=== PATIENT | male | born 1935 | race Two or more races ===

== ENCOUNTER 2018-04-26 20:52 | Inpatient (IN) | payer MEDICARE, MEDICAID ==
--- NOTE | 2018-04-26 21:30 | ED Physician Chart ---
ED Chief Complaint/HPI - Patient Information Date Seen:: 04/26/18 Time Seen:: 20:25 Chief Complaint:: abn labs History of Present Illness:: 82 yr [facility] with wbc 25 k and elevated bun pt confused unable to give any reliable hx Allergies:: Allergies Allergy/AdvReac Type Severity Reaction Status Date / Time No Known Allergies Allergy Verified 06/02/16 22:18 Vitals:: Vital Signs - 8 hr 04/26/18 21:07 HR 71 O2 Sat % 100 Historian:: Medical Records ED Review of Systems - Review of Systems Skin: Skin lesions (severe fee discolorations pt unable to give any hx) ED Past Medical History - Past Medical History Past Medical History: Other (schizo bipolar anxietydementia melanoma malignant) Family Medical History - Family Member Mother History Unknown: Yes ED Physical Exam - Physical Examination General/Constitutional: Awake Head: Atraumatic Skin: Nl inspection, No rash, No skin lesions, No ecchymosis, Well hydrated, No lymphadenopathy Neck: No JVD (trach vent dependent) Cardio Vascular: RRR (no wheezing) Other Neuro/Psych comments:: pt with schizo bipolar dementia ED Assessment - Assessment General Assessment: vent dependence elevated wbc r/o sepsis ED Septic Shock - . Is Septic Shock (SBP<90, OR Lactate>4 mmol\L) present?: No - <6hrs of presentation: Vital Signs: Vital Signs - 8 hr 04/26/18 21:07 HR 71 O2 Sat % 100 ED Reassessment (Disposition) - Reassessment Reassessment Condition:: Unchanged - Diagnosis Diagnosis:: r/o sepsis - Patient Disposition Discharge/Transfer:: Acute Care w/in this hosp
[2018-04-26 22:08] LABS: EOSINOPHILE ABSOLUTE 0.2 Th/cmm (0.1-0.4); HEMATOCRIT 33.7 % (41.0-60); HEMOGLOBIN 11.7 gm/dL (12-16); LYMPHOCYTE ABSOLUTE 0.5 Th/cmm (1.5-3.0); MANUAL DIFF REQUIRED? YES; MEAN CELL VOLUME 89.1 fl (80-99); MEAN CORPUSCULAR HGB CONC 34.8 pg (28.0-36.0); MEAN PLATELET VOLUME 10.6 fl; MONOCYTE ABSOLUTE 0.6 Th/cmm (0.3-1.0); NEUTROPHILE ABSOLUTE 13.3 Th/cmm (1.8-8.0); PLATELET COUNT 151 Th/cmm (150-400); RED BLOOD COUNT 3.78 Mil/cmm (3.80-5.80); RED CELL DISTRIBUTION WIDTH 12.2 % (11.5-20.0); WHITE BLOOD COUNT 14.6 Th/cmm (4.8-10.8)
[2018-04-26 22:24] LABS: URINE MICROSCOPIC INDICATED? YES; URINE SOURCE CLEAN C
[2018-04-26 22:27] LABS: ALB/GLOB RATIO 0.9 (1.0-1.8); ALBUMIN 3.4 gm/dL (4.2-5.5); ALKALINE PHOSPHATASE 182 U/L (34-104); BILIRUBIN,TOTAL 1.1 mg/dL (0.3-1.0); BUN - UREA NITROGEN 58 mg/dL (7-25); CALCIUM SERUM 8.9 mg/dL (8.6-10.3); CARBON DIOXIDE 26.5 mEq/L (21.0-31.0); CHLORIDE 92 mEq/L (98-107); CREATININE - SERUM 1.1 mg/dL (0.7-1.3); GLUCOSE 122 mg/dL (70-105); POTASSIUM SERUM 3.5 mEq/L (3.5-5.1); SGOT 37 U/L (13-39); SGPT/ALT 22 U/L (7-52); SODIUM SERUM 128 mEq/L (136-145); TOTAL PROTEIN,SERUM 7.2 gm/dL (6.0-8.3)
[2018-04-26 22:45] LABS: URINE CLARITY CLOUDY (CLEAR); URINE COLOR YELLOW
[2018-04-26 22:47] LABS: URINE BILIRUBIN NEGATIVE (NEGATIVE); URINE GLUCOSE (UA) NEGATIVE (NEGATIVE); URINE KETONE NEGATIVE (NEGATIVE)
[2018-04-26 22:48] LABS: URINE BLOOD LARGE (NEGATIVE); URINE NITRATE POSITIVE (NEGATIVE); URINE PH 7.5 (4.6 - 8.0); URINE PROTEIN 100 mg/dL (NEGATIVE); URINE UROBILINOGEN 0.2 E.U./dL (0.2 - 1.0)
[2018-04-26 22:49] LABS: URINE LEUKOCYTE ESTERASE MODERATE (NEGATIVE)
[2018-04-26] MEDS ORDERED: Piperacillin Sodium/Tazobact 3.375 gm Vial IV ONE (22:53)
[2018-04-26 22:55] LABS: URINE BACTERIA MODERATE /hpf (NONE SEEN); URINE EPITHELIAL CELLS NONE SEEN /lpf (FEW)
[2018-04-26 23:17] LABS: BAND NEUTROPHILE 7 % (0-10); BASOPHIL 0 % (0-3); EOSINOPHIL 1 % (0-5); LYMPHOCYTE 3 % (20-50); MONOCYTE 3 % (2-10); NEUTROPHILS 86 % (40-80); PLATELET ESTIMATE ADEQUATE (NORMAL); PLATELET MORPHOLOGY NORMAL (NORMAL); TOTAL CELLS COUNTED 100
[2018-04-26] MEDS ORDERED: Sodium Chloride 0.9% 1,000 ML IV ONE (23:32)
[2018-04-26] MEDS ORDERED: Polyvinyl Alcohol Ophth Soln 15 mL Bottle EACH EYE PRN (23:54)
[2018-04-26] MEDS ORDERED: guaiFENesin 200 MG/10 ML UDC PO PRN (23:57)
[2018-04-27] MEDS: D5-0.9%NS 1,000 ML IV SCH ×3 (01:30→14:00)
[2018-04-27] MEDS ORDERED: LOPERAMIDE HCL GT PRN (03:15)
[2018-04-27] MEDS: Ferrous Sulfate 300 MG/5 ML UDC GT SCH ×3 (05:19→21:26)
[2018-04-27] MEDS ORDERED: Piperacillin Sodium/Tazobact 3.375 gm Vial IV ONE (05:21)
[2018-04-27] MEDS: Albuterol Nebulizer 2.5mg/3mL HHN SCH ×4 (07:53→18:42)
[2018-04-27] MEDS: Ipratropium Neb 0.5 mg/2.5 mL UD HHN SCH ×4 (07:53→18:42)
[2018-04-27] MEDS: Pantoprazole 40 mg/Packet GT SCH (08:00)
[2018-04-27] MEDS: Albumin 25% 25gm/100mL 50 GM/200 ML BTL IV ONE ×2 (08:10→09:18)
[2018-04-27] MEDS: Levothyroxine 0.025 Mg Tab GT SCH (08:20)
[2018-04-27] MEDS: Chlorhexidine Gluconate 0.12% 15mL Mouthwash MM SCH (08:25)
[2018-04-27] MEDS ORDERED: Albumin 25% 25gm/100mL 25 GM/100 ML BTL IV ONE (08:29)
[2018-04-27] MEDS ORDERED: Non-Formulary Item 1 EA (Cran/Vitc/Mannose/Fos/Bromeln [Uti-Stat Liquid] 30 ML) GT SCH (09:00)
[2018-04-27] MEDS ORDERED: Non-Formulary Item 1 EA (Amino Acids/Protein Hydrolys [Pro-Stat Sugar Free Liquid] 30 ML) GT SCH (09:00)
[2018-04-27] MEDS: Vancomycin HCl 500 MG in Sodium Chloride 0.9% 100 ML IV SCH ×2 (09:02→21:24)
[2018-04-27 09:04] LABS: ALB/GLOB RATIO 0.9 (1.0-1.8); ALBUMIN 2.9 gm/dL (4.2-5.5); ALKALINE PHOSPHATASE 116 U/L (34-104); ANION GAP 11.5 (7.0-16.0); BILIRUBIN,TOTAL 1.1 mg/dL (0.3-1.0); BUN - UREA NITROGEN 47 mg/dL (7-25); CALCIUM SERUM 8.4 mg/dL (8.6-10.3); CARBON DIOXIDE 24.4 mEq/L (21.0-31.0); CHLORIDE 99 mEq/L (98-107); GLUCOSE 142 mg/dL (70-105); SGOT 33 U/L (13-39); SGPT/ALT 21 U/L (7-52); SODIUM SERUM 132 mEq/L (136-145); TOTAL PROTEIN,SERUM 6.3 gm/dL (6.0-8.3)
[2018-04-27 09:07] LABS: % BASOPHILS 0.4 % (0.0-2.0); % EOSINOPHILS 0.5 % (0.0-5.0); % LYMPHOCYTES 5.8 % (20.0-50.0); % NEUTROPHILS 89.3 % (40.0-80.0); HEMOGLOBIN 9.8 gm/dL (12-16); LYMPHOCYTE ABSOLUTE 0.4 Th/cmm (1.5-3.0); MEAN CELL VOLUME 88.5 fl (80-99); MEAN CORPUSCULAR HEMOGLOBIN 30.7 pg (27.0-31.0); MEAN CORPUSCULAR HGB CONC 34.7 pg (28.0-36.0); MEAN PLATELET VOLUME 11.3 fl; MONOCYTE ABSOLUTE 0.3 Th/cmm (0.3-1.0); PLATELET COUNT 131 Th/cmm (150-400); RED BLOOD COUNT 3.19 Mil/cmm (3.80-5.80); RED CELL DISTRIBUTION WIDTH 12.2 % (11.5-20.0)
[2018-04-27 09:09] LABS: POTASSIUM SERUM 2.9 mEq/L (3.5-5.1)
[2018-04-27 09:10] LABS: HEMATOCRIT 28.2 % (41.0-60); WHITE BLOOD COUNT 6.7 Th/cmm (4.8-10.8)
--- NOTE | 2018-04-27 09:12 | Diagnostic Imaging Report ---
Portable chest x-ray HISTORY: Shortness of breath The overall heart size is difficult to assess with portable technique and a poor inspiration. No acute focal pulmonary processes. Tracheostomy noted. IMPRESSION: 1. No acute focal pulmonary processes
[2018-04-27] MEDS: Multivitamin w/ Minerals Tab GT SCH (09:15)
[2018-04-27] MEDS: KCL 20mEq/100mL Premix 40 MEQ/200 ML PIGGYBACK IV SCH ×2 (09:57→12:12)
[2018-04-27] MEDS: INSULIN ASPART SLIDING SCALE 100 UNITS/ML UNIT SUBQ SCH ×2 (12:12→17:34)
--- NOTE | 2018-04-27 14:19 | Internal Medicine Prog Note ---
Internal Medicine Subjective - Subjective Service Date: 04/27/18 ([facility] [id number]) Internal Medicine Objective - Results Result Diagrams: 04/27/18 08:37 04/27/18 08:37 Recent Labs: Laboratory Last Values WBC 6.7 Th/cmm (4.8-10.8) D 04/27/18 08:37 RBC 3.19 Mil/cmm (3.80-5.80) L 04/27/18 08:37 Hgb 9.8 gm/dL (12-16) L 04/27/18 08:37 Hct 28.2 % (41.0-60) L D 04/27/18 08:37 MCV 88.5 fl (80-99) 04/27/18 08:37 MCH 30.7 pg (27.0-31.0) 04/27/18 08:37 MCHC Differential 34.7 pg (28.0-36.0) 04/27/18 08:37 RDW 12.2 % (11.5-20.0) 04/27/18 08:37 Plt Count 131 Th/cmm (150-400) L 04/27/18 08:37 MPV 11.3 fl 04/27/18 08:37 Neutrophils % 89.3 % (40.0-80.0) H 04/27/18 08:37 Band Neutrophils % 7 % (0-10) 04/26/18 22:03 Lymphocytes % 5.8 % (20.0-50.0) L 04/27/18 08:37 Monocytes % 4.0 % (2.0-10.0) 04/27/18 08:37 Eosinophils % 0.5 % (0.0-5.0) 04/27/18 08:37 Basophils % 0.4 % (0.0-2.0) 04/27/18 08:37 Neutrophils (Manual) 86 % (40-80) H 04/26/18 22:03 Lymphocytes 3 % (20-50) L 04/26/18 22:03 Monocytes 3 % (2-10) 04/26/18 22:03 Eosinophils 1 % (0-5) 04/26/18 22:03 Basophils 0 % (0-3) 04/26/18 22:03 Platelet Estimate ADEQUATE (NORMAL) 04/26/18 22:03 Platelet Morphology NORMAL (NORMAL) 04/26/18 22:03 RBC Morph Micro Appear NORMAL (NORMAL) 04/26/18 22:03 Sodium 132 mEq/L (136-145) L 04/27/18 08:37 Potassium 2.9 mEq/L (3.5-5.1) L* 04/27/18 08:37 Chloride 99 mEq/L (98-107) 04/27/18 08:37 Carbon Dioxide 24.4 mEq/L (21.0-31.0) 04/27/18 08:37 Anion Gap 11.5 (7.0-16.0) 04/27/18 08:37 BUN 47 mg/dL (7-25) H 04/27/18 08:37 Creatinine 1.0 mg/dL (0.7-1.3) 04/27/18 08:37 Est GFR ( Amer) TNP 04/27/18 08:37 Est GFR (Non-Af Amer) TNP 04/27/18 08:37 BUN/Creatinine Ratio 47.0 04/27/18 08:37 Glucose 142 mg/dL (70-105) H 04/27/18 08:37 Calcium 8.4 mg/dL (8.6-10.3) L 04/27/18 08:37 Total Bilirubin 1.1 mg/dL (0.3-1.0) H 04/27/18 08:37 AST 33 U/L (13-39) 04/27/18 08:37 ALT 21 U/L (7-52) 04/27/18 08:37 Alkaline Phosphatase 116 U/L (34-104) H 04/27/18 08:37 Total Protein 6.3 gm/dL (6.0-8.3) 04/27/18 08:37 Albumin 2.9 gm/dL (4.2-5.5) L 04/27/18 08:37 Globulin 3.4 gm/dL 04/27/18 08:37 Albumin/Globulin Ratio 0.9 (1.0-1.8) L 04/27/18 08:37 Urine Source CLEAN C 04/26/18 22:15 Urine Color YELLOW 04/26/18 22:15 Urine Clarity CLOUDY (CLEAR) 04/26/18 22:15 Urine pH 7.5 (4.6 - 8.0) 06/15/18 22:15 Ur Specific [place] 1.005 (1.005-1.030) 04/26/18 22:15 Urine Protein 100 mg/dL (NEGATIVE) H 04/26/18 22:15 Urine Glucose (UA) NEGATIVE mg/dL (NEGATIVE) 04/26/18 22:15 Urine Ketones NEGATIVE mg/dL (NEGATIVE) 04/26/18 22:15 Urine Blood LARGE (NEGATIVE) H 04/26/18 22:15 Urine Nitrate POSITIVE (NEGATIVE) H 04/26/18 22:15 Urine Bilirubin NEGATIVE (NEGATIVE) 04/26/18 22:15 Urine Urobilinogen 0.2 E.U./dL (0.2 - 1.0) 04/26/18 22:15 Ur Leukocyte Esterase MODERATE (NEGATIVE) H 04/26/18 22:15 Urine RBC 10-25 /hpf (0-5) H 04/26/18 22:15 Urine WBC 10-25 /hpf (0-5) H 04/26/18 22:15 Ur Epithelial Cells NONE SEEN /lpf (FEW) 04/26/18 22:15 Urine Bacteria MODERATE /hpf (NONE SEEN) H 04/26/18 22:15 - Physical Exam Vitals and I&O: Vital Signs Temp 98.9 F 04/27/18 14:00 Pulse 60 04/27/18 14:00 Resp 17 04/27/18 14:00 BP 118/34 04/27/18 14:00 Pulse Ox 100 04/27/18 14:00 Intake & Output 04/26/18 04/27/18 04/27/18 18:59 06:59 18:59 Intake Total 1460 1254.500 Output Total 650 Balance 810 1254.500 Weight (lbs) 154 lb Intake: Intake, IV Amount 1400 1254.500 Albumin 25% 25gm/100mL 50 56.667 gm In 200 ml @ 50 mls/hr IV X1 ONE Rx#:[id number] D5-0.9%Ns 1,000 ml @ 80 885.333 mls/hr IV [id number] [facility] Rx #:[id number] KCL 20mEq/100mL Premix 40 112.5 meq In 200 ml @ 50 mls/ hr IV Q2H [facility] Rx#: [id number] Piperacillin Sodium/ 100 100 Tazobact 3.375 gm In Sodium Chloride 0.9% 100 ml @ 100 mls/hr IV Q6HR [facility] Rx#:[id number] Piperacillin Sodium/ 50 Tazobact 3.375 gm In Sodium Chloride 0.9% 50 ml @ 100 mls/hr IV X1 [facility] Rx#:[id number] Sodium Chloride 0.9% 1, 1000 000 ml @ 1000 mls/hr IV . Q1H [facility] Rx#:[id number] Vancomycin HCl 1 gm In 250 Sodium Chloride 0.9% 250 ml @ 166.667 mls/hr IV 0300 [facility] Rx#:[id number] Vancomycin HCl 500 mg In 100 Sodium Chloride 0.9% 100 ml @ 100 mls/hr IV Q12HR [facility] Rx#:[id number] Oral 0 Other 60 Output: Urine 650 Other: # Bowel Movements 0 Weight Source Bedscale Active Medications: Current Medications Acetaminophen (Tylenol) 650 mg GT Q6HR PRN PRN Reason: Pain or Fever >101 Stop: 06/25/18 23:53 Last Admin: 04/27/18 09:39 Dose: 650 mg Acetaminophen/Hydrocodone Bitart ([place] 5mg/325mg) 1 tab GT Q8H PRN PRN Reason: Pain (Severe) Stop: 06/25/18 23:53 Albuterol Sulfate (Albuterol 2.5mg/3ml Neb Ud) 2.5 mg HHN QIDRT [facility] Stop: 06/26/18 06:59 Last Admin: 04/27/18 11:37 Dose: 2.5 mg Alprazolam (Xanax) 0.5 mg GT Q8HR PRN; Protocol PRN Reason: Anxiety Stop: 06/25/18 23:53 Last Admin: 04/27/18 09:15 Dose: 0.5 mg Artificial Tears (Artificial Tears Ophth Soln) 1 drop EACH EYE TID PRN PRN Reason: Dry Eye Stop: 06/25/18 23:53 Ascorbic Acid (Vitamin C) 500 mg GT DAILY [facility] Stop: 06/26/18 08:59 Last Admin: 04/27/18 09:16 Dose: 500 mg Chlorhexidine Gluconate (Peridex) 15 ml MM 0800,2000 [facility] Stop: 06/26/18 07:59 Last Admin: 04/27/18 08:25 Dose: 15 ml Epoetin [place] (Epogen) 4,000 units SUBQ MWF [facility] Stop: 06/28/18 08:59 Ferrous Sulfate (Iron) 330 mg GT Q8HR [facility] Stop: 06/26/18 04:59 Last Admin: 04/27/18 12:33 Dose: 330 mg Fluocinonide (Lidex 0.05%) 1 appl TP BID [facility] Stop: 06/26/18 08:59 Last Admin: 04/27/18 09:44 Dose: 1 appl Guaifenesin (Robitussin) 200 mg PO Q4HR PRN PRN Reason: Cough or Congestion Stop: 06/25/18 23:56 Piperacillin Sod/Tazobactam (Sod 3.375 gm/ Sodium Chloride) 100 mls @ 100 mls/ hr IV Q6HR [facility] Stop: 06/26/18 05:59 Last Infusion: 04/27/18 13:15 Dose: Infused Vancomycin HCl 500 mg/ Sodium (Chloride) 100 mls @ 100 mls/hr IV Q12HR [facility] Stop: 06/26/18 08:59 Last Infusion: 04/27/18 10:05 Dose: Infused Norepinephrine Bitartrate 4 mg (/ Dextrose) 254 mls @ 0 mls/hr IV TITR PRN; Protocol PRN Reason: To Keep SBP Above 90 Stop: 06/26/18 08:13 Last Admin: 04/27/18 08:59 Dose: 4 mcg/min, 15.24 mls/hr Dextrose/Sodium Chloride (D5-0.9%Ns) 1,000 mls @ 100 mls/hr IV .Q10H [facility] Stop: 06/26/18 13:44 Insulin Aspart (Novolog Insulin Sliding Scale) 0 units SUBQ Q6HR [facility]; Protocol Stop: 06/26/18 11:59 Last Admin: 04/27/18 12:12 Dose: 2 units Ipratropium [place] (Atrovent Neb 0.5mg/2.5ml) 0.5 mg HHN QIDRT [facility] Stop: 06/26/18 06:59 Last Admin: 04/27/18 11:37 Dose: 0.5 mg Ketoconazole (Nizoral 2% Cream) 1 appl TP BID [facility] Stop: 06/26/18 08:59 Last Admin: 04/27/18 09:44 Dose: 1 appl Levothyroxine Sodium (Synthroid) 0.025 mg GT QDAC [facility] Stop: 06/26/18 07:29 Last Admin: 04/27/18 08:20 Dose: 0.025 mg Loperamide HCl (Imodium Oral Soln) 2 mg GT Q6HR PRN PRN Reason: Diarrhea Stop: 06/26/18 03:14 Lorazepam (Ativan) 1 mg IV Q4H PRN; Protocol PRN Reason: Seizure Stop: 06/25/18 23:56 Last Admin: 04/27/18 13:22 Dose: 1 mg Midodrine (Proamatine) 5 mg GT TID [facility] Stop: 06/26/18 08:59 Last Admin: 04/27/18 13:23 Dose: 5 mg Miscellaneous (Celecoxib [Celecoxib]) 200 mg GT DAILY [facility] Stop: 06/26/18 08:59 Miscellaneous (Vancomycin Iv Per Pharmacy) 1 ea MC PRN PRN PRN Reason: PROTOCOL Stop: 06/26/18 07:52 Ondansetron HCl (Zofran) 4 mg IV Q8H PRN PRN Reason: Nausea / Vomiting Stop: 06/25/18 23:56 Pantoprazole Sodium (Protonix) 40 mg GT QDAC [facility] Stop: 06/26/18 07:29 Last Admin: 04/27/18 08:00 Dose: 40 mg Paroxetine HCl (Paxil) 10 mg GT DAILY [facility]; Protocol Stop: 06/26/18 08:59 Last Admin: 04/27/18 09:15 Dose: 10 mg Pyridostigmine [place] (Mestinon) 60 mg GT BID [facility] Stop: 06/26/18 08:59 Last Admin: 04/27/18 09:17 Dose: 60 mg - Procedures Procedures: Procedures Procedure Code Date EGD PLACE GASTROSTOMY TUBE 32518 06/02/16 INSERTION OF FEEDING DEVICE INTO STOMACH, ENDO [id number] 06/02/16 RESPIRATORY VENTILATION, GREATER THAN 96 CONSECUTIVE HOURS [id number] 06/02/16 VENT MGMT INPAT INIT DAY 06/02/16 VENT MGMT INPAT SUBQ DAY 06/02/16 Nutritional Asmnt/Malnutr-PDOC - Dietary Evaluation Malnutrition Findings (Please click <Entered> for more info): Nutritional Asmnt/Malnutrition Start: 04/27/18 09: 23 Text: Status: Complete Freq: Protocol: Document 04/27/18 09:24 [facility] (Rec: 04/27/18 09:38 [facility] [id number]) Nutritional Asmnt/Malnutrition Patient General Information Nutritional Screening High Risk Consult Diagnosis Sepsis, UTI Pertinent Medical Hx/Surgical Hx G-tube; trach vent dependent - nonverbal per RN notes Hx: Schizo, bipolar, anxiety, dementia, melanoma (malignant) Subjective Information Consult received for Russell Dhaliwal . Patient from [facility]; confused. Patient seen sleeping in ICU. Current Diet Order/ Nutrition Support TF Diabetisource 50 mL/hr continuous Patient / S.O Can't verbalize diet edu Pertinent Medications vit C, D5, FeSO4, Epo, Novolog , Synthroid, zofran, protonix, Pertinent Labs 04/27: Alb 2.9, K+ 2.9, Glu 142 04/26: Alb 3.4, K+ 3.5, Glu 122 Nutritional Hx/Data Height 5 ft 6 in Height (Calculated Centimeters) 167.6 Current Weight (lbs) 154 lb Weight (Calculated Kilograms) 69.9 Weight (Calculated Grams) 16048.2 [place] Body Weight 142 % [place] Body Weight 108 Body Mass Index (BMI) 24.8 Weight Status Approriate GI Symptoms Last BM none indicated Difficult in: Chewing Swallowing Food Allergies unknown Cultural/Ethnic/[employer] Belief unknown Usual diet at home TF at SNF Skin Integrity/Comment: Russell Dhaliwal, multiple skin abrasions to L hand, L foot; reddened scabs to L thigh, RUE , r foot, buttock Estimated Nutritional Goals BEE in Kcals: Using Current wt Calories/Kcals/Kg [id number] Kcals Calculated 1750 Protein: Using Current wt Protein g/k-1.2 Protein Calculated 70-84 Fluid: ml 1750 - 1890 (1ml/kcal) Nutritional Problem 1. Problem Problem Increased protein needs Etiology impaired skin integrity Signs/Symptoms: russell Dhaliwal, multiple skin abrasions/tears Intervention/Recommendation Comments 1. If medically appropriate, recommend increasing TF rate to Diabetisource 60 mL/hr to provide 1728 Kcals, 86g protein, 1178 mL free water, 100% RDI. Recommend 150 mL free water flushes q 6 hours to provide additional 600 mL fluids for total 1778 mL/day. 2. Recommend adding arginine for wound healing. Expected Outcomes/Goals Expected Outcomes/Goals 1. Pt to meet at least 75% of nutritional needs via nutrition support with minimal residuals 2. Wt stability, improved skin integrity, labs to approach WNL. 3. F/U as high risk in 2-3 days, 04/29-04/30
--- NOTE | 2018-04-27 16:53 | History & Physical ---
ADMIT DATE: 04/27/2018 CHIEF COMPLAINT: White count of 25,000. HISTORY OF PRESENT ILLNESS: This is an 82-year-old male who is well known to me from [facility]. I was called on this patient due to 1-day history of fevers as well as a white count of 25,000. For further management the patient is admitted to the ICU. In the ICU, the patient was noted to be hypotensive. Albumin was given; despite of giving albumin blood pressure remained low systolic pressure in the 70s and the patient started on Levophed. PAST MEDICAL HISTORY: Myasthenia gravis, ventilator dependent respiratory failure, acute on chronic respiratory failure, dementia, malignant melanoma. SURGICAL HISTORY: PEG and tracheostomy. MEDICATIONS: Vitamin C, albuterol sulfate, folic acid, Reglan, multivitamins, Protonix, Paxil, and zinc sulfate. REVIEW OF SYSTEMS: Unable to obtain due to patient's mental status. SOCIAL HISTORY: The patient is a shelter resident, requiring 24-hour nursing care. PHYSICAL EXAMINATION: GENERAL: Elderly male, awake on ventilator, in no apparent distress. VITAL SIGNS: Temperature 99.9, heart rate 60, blood pressure 118/34, respirations 17. HEENT: Head normocephalic, atraumatic. NECK: Supple. No mass. LUNGS: Rhonchi bilaterally. HEART: . ABDOMEN: Soft, nontender. LABORATORY RESULTS: WBC 6.7, H and H 9.8/28.2, platelet of 131. Sodium 132, potassium 2.9, chloride 99, BUN 47, creatinine 1.0, albumin of 2.9. The patient had a urinalysis done, positive for UTI. DIAGNOSTICS: The patient had a chest x-ray done and impression is no acute focal pulmonary processes. ASSESSMENT: Sepsis, acute UTI, hypotension, hypokalemia, acute renal insufficiency, rule out dehydration, VDRL, acute on chronic respiratory failure, mild protein calorie malnutrition. PLAN: Admit the patient to the ICU unit. Continue with Levophed and titrate as per protocol. We will get followup labs for tomorrow morning. We will monitor the patient's electrolytes level. Continue ventilator support, send urine for urine culture. We will continue to monitor this patient. JOB# [id number]
--- NOTE | 2018-04-27 23:18 | Consultation ---
DATE OF CONSULTATION: UROLOGY CONSULTATION REASON FOR CONSULTATION: Seen for possible urinary retention. HISTORY OF PRESENT ILLNESS: The patient is an 82-year-old in the ICU, came in for hypotension, abnormal labs, confusion, and altered level of consciousness. He was admitted and is being treated for sepsis of unknown origin. The patient had a chronic Daly catheter, which was removed and the nurses were unable to reinsert it. Since then, he has been incontinent of clear urine. MEDICAL HISTORY: Consists of schizophrenia and bipolar disorder with anxiety and dementia. History of melanoma. History of respiratory failure with ventilator dependency and tracheostomy. History of myasthenia gravis. PAST SURGICAL HISTORY: 1. G-tube placement. 2. Tracheostomy. HOME MEDICATIONS: Inhalers, vitamins, Protonix, Paxil, and zinc. SOCIAL HISTORY: He is a intermediate resident. Requires very intensive nursing care. More details are unavailable. REVIEW OF SYSTEMS: The patient is on 2 mcg of Levophed here. Besides that, he has not had any headache or seizures reported. He has not had chest pain, coughing or shortness of breath. His ventilator settings are stable. He has not vomited and does not have diarrhea. He is incontinent of urine and is not distended. Does not have decubiti so far. PHYSICAL EXAMINATION: GENERAL: On exam, he is in the ICU, currently stable. VITAL SIGNS: Temperature 97.6, heart rate 71, blood pressure 92/61 on vasopressors, no temperature recorded in the hospital. HEAD AND NECK: Normocephalic. Trachea central with tracheostomy. No jaundice. Thyroid and lymph nodes not palpable. Carotid bruit absent. CHEST: Symmetrical. LUNGS: With scattered rhonchi, occasional rales at the bases. HEART: Sounds normal sinus rhythm, no murmur. ABDOMEN: Soft with G-tube in place. No organomegaly, mass, or hernia. Bladder not distended or palpable. Scrotum unremarkable. No scrotal masses. GENITOURINARY: Penis uncircumcised. Active incontinence of urine was noted. EXTREMITIES: No edema or lymphadenopathy. NEUROLOGIC: Nonfocal. Moves all 4 limbs. LABORATORY DATA: White count was 14.6 yesterday and now 6.7. The patient is on vancomycin and Zosyn. Hemoglobin 9.8 down from 11.7, platelets 131, mild left shift in the white count. Sodium was 128, now 132; potassium is now 2.9, yesterday at 3.5; BUN 47, creatinine 1.0, glucose 169 and 151, calcium 8.4, bilirubin 1.1. Liver enzymes normal. Alkaline phosphatase 116, mildly elevated. Albumin 2.9. Urinalysis shows large amount of blood and moderate amount of leukocyte esterase with red cells and white cells obtained from the Daly and somewhat expected. Blood cultures are negative so far. Chest x-ray shows no acute changes. IMPRESSION: 1. Chronic Daly catheter, status now without it, and urinating adequate amounts clinically, but needs to be verified and retention needs to be ruled out. I will order pre and post-void or a random bladder ultrasound since we do not have a bladder scanner and see if he has significant retention. If so, then we will attempt a Daly catheter at the bedside and hopefully does not require cystoscopy as a stricture is certainly a possibility that may not be treatable at the bedside. If he does not have retention, I would currently not attempt a Daly and wait till he is hemodynamically stable and then attempted at the bedside. 2. History of respiratory failure, ventilator dependent. 3. History of G-tube dependency. 4. History of myasthenia gravis. 5. History of malignant melanoma. 6. History of dementia. JOB# [id number]
[2018-04-28] MEDS: Chlorhexidine Gluconate 0.12% 15mL Mouthwash MM SCH ×3 (00:54→21:00)
[2018-04-28] MEDS: INSULIN ASPART SLIDING SCALE 100 UNITS/ML UNIT SUBQ SCH ×4 (01:19→18:43)
[2018-04-28 04:57] LABS: % BASOPHILS 0.6 % (0.0-2.0); % EOSINOPHILS 3.3 % (0.0-5.0); % LYMPHOCYTES 10.6 % (20.0-50.0); % MONOCYTES 8.8 % (2.0-10.0); % NEUTROPHILS 76.7 % (40.0-80.0); EOSINOPHILE ABSOLUTE 0.2 Th/cmm (0.1-0.4); HEMATOCRIT 29.5 % (41.0-60); HEMOGLOBIN 10.2 gm/dL (12-16); LYMPHOCYTE ABSOLUTE 0.6 Th/cmm (1.5-3.0); MEAN CELL VOLUME 89.5 fl (80-99); MEAN CORPUSCULAR HGB CONC 34.6 pg (28.0-36.0); MEAN PLATELET VOLUME 10.2 fl; MONOCYTE ABSOLUTE 0.5 Th/cmm (0.3-1.0); NEUTROPHILE ABSOLUTE 4.3 Th/cmm (1.8-8.0); PLATELET COUNT 117 Th/cmm (150-400); RED BLOOD COUNT 3.29 Mil/cmm (3.80-5.80); RED CELL DISTRIBUTION WIDTH 12.1 % (11.5-20.0); WHITE BLOOD COUNT 5.6 Th/cmm (4.8-10.8)
[2018-04-28 05:10] LABS: ANION GAP 10.4 (7.0-16.0); BUN - UREA NITROGEN 27 mg/dL (7-25); CALCIUM SERUM 8.6 mg/dL (8.6-10.3); CARBON DIOXIDE 24.6 mEq/L (21.0-31.0); CHLORIDE 106 mEq/L (98-107); CREATININE - SERUM 0.8 mg/dL (0.7-1.3); GLUCOSE 164 mg/dL (70-105); SODIUM SERUM 138 mEq/L (136-145)
[2018-04-28] MEDS: Levothyroxine 0.025 Mg Tab GT SCH (07:30)
[2018-04-28] MEDS: Albuterol Nebulizer 2.5mg/3mL HHN SCH ×4 (07:49→18:48)
[2018-04-28] MEDS: Ipratropium Neb 0.5 mg/2.5 mL UD HHN SCH ×4 (07:49→18:48)
--- NOTE | 2018-04-28 08:03 | Consultation ---
DATE OF CONSULTATION: 04/27/2018 PATIENT OF: Dr. Bowden. Thank you very much Dr. Bowden for this consultation. HISTORY OF PRESENT ILLNESS: The patient is an 82-year-old male with history of myasthenia gravis, chronic respiratory failure, presented from the retirement with hypotension and fever, was found to have UTI, sepsis. He was started on IV fluids, antibiotics and pressors. The patient is on Levophed. Blood pressure is controlled, but lethargic. PAST MEDICAL HISTORY: As above. SOCIAL HISTORY: retirement resident. No history of smoking. PHYSICAL EXAMINATION: VITAL SIGNS: Temperature 99.3, pulse 70, respiration is 19, blood pressure is 110/40, saturation is 99%. HEENT: Atraumatic, normocephalic. Pupils react to light and accommodation. Ears, nose and throat normal. NECK: Supple. No JVD. CHEST: There is fair entry bilaterally. No wheezing, crackles. HEART: Regular rate and rhythm. No murmurs. ABDOMEN: Soft. EXTREMITIES: No edema. LABORATORY DATA: WBC 6.7, hemoglobin 9.8, hematocrit 28.2, platelets 131. Sodium 132, potassium 2.9, BUN is 47, creatinine 1.0. Chest x-ray clear. IMPRESSION: This is an 82-year-old male with chronic respiratory failure, on the ventilator dependent with a urinary tract infection, sepsis, hypotension and dehydration. PLAN: 1. Ventilator support. 2. Antibiotics. 3. Thacker culture. 4. Nebulizer dependent. 5. IV fluids. Hope to wean the pressors soon. I will follow the patient with you. Thank you very much for this consultation. JOB# [id number]
[2018-04-28] MEDS: D5-0.9%NS 1,000 ML IV SCH ×3 (09:12→23:40)
[2018-04-28] MEDS: Ferrous Sulfate 300 MG/5 ML UDC GT SCH ×4 (09:26→21:36)
[2018-04-28] MEDS: Multivitamin w/ Minerals Tab GT SCH (09:42)
[2018-04-28] MEDS: Pantoprazole 40 mg/Packet GT SCH (09:55)
[2018-04-28] MEDS: Vancomycin HCl 500 MG in Sodium Chloride 0.9% 100 ML IV SCH ×2 (10:00→21:37)
[2018-04-28] MEDS: KCL 20mEq/100mL Premix 20 MEQ/100 ML PIGGYBACK IV SCH ×2 (12:36→14:04)
--- NOTE | 2018-04-28 16:29 | Internal Medicine Prog Note ---
Internal Medicine Subjective - Subjective Service Date: 04/28/18 (off of levophed) Patient seen and examined:: with staff Patient is:: awake Per staff patient has:: tolerating meds Internal Medicine Objective - Results Result Diagrams: 04/28/18 04:30 04/28/18 04:30 Recent Labs: Laboratory Last Values WBC 5.6 Th/cmm (4.8-10.8) 04/28/18 04:30 RBC 3.29 Mil/cmm (3.80-5.80) L 04/28/18 04:30 Hgb 10.2 gm/dL (12-16) L 04/28/18 04:30 Hct 29.5 % (41.0-60) L 04/28/18 04:30 MCV 89.5 fl (80-99) 04/28/18 04:30 MCH 31.0 pg (27.0-31.0) 04/28/18 04:30 MCHC Differential 34.6 pg (28.0-36.0) 04/28/18 04:30 RDW 12.1 % (11.5-20.0) 04/28/18 04:30 Plt Count 117 Th/cmm (150-400) L 04/28/18 04:30 MPV 10.2 fl 04/28/18 04:30 Neutrophils % 76.7 % (40.0-80.0) 04/28/18 04:30 Band Neutrophils % 7 % (0-10) 04/26/18 22:03 Lymphocytes % 10.6 % (20.0-50.0) L 04/28/18 04:30 Monocytes % 8.8 % (2.0-10.0) 04/28/18 04:30 Eosinophils % 3.3 % (0.0-5.0) 04/28/18 04:30 Basophils % 0.6 % (0.0-2.0) 04/28/18 04:30 Neutrophils (Manual) 86 % (40-80) H 04/26/18 22:03 Lymphocytes 3 % (20-50) L 04/26/18 22:03 Monocytes 3 % (2-10) 04/26/18 22:03 Eosinophils 1 % (0-5) 04/26/18 22:03 Basophils 0 % (0-3) 04/26/18 22:03 Platelet Estimate ADEQUATE (NORMAL) 04/26/18 22:03 Platelet Morphology NORMAL (NORMAL) 04/26/18 22:03 RBC Morph Micro Appear NORMAL (NORMAL) 04/26/18 22:03 Sodium 138 mEq/L (136-145) 04/28/18 04:30 Potassium 3.0 mEq/L (3.5-5.1) L 04/28/18 04:30 Chloride 106 mEq/L (98-107) 04/28/18 04:30 Carbon Dioxide 24.6 mEq/L (21.0-31.0) 04/28/18 04:30 Anion Gap 10.4 (7.0-16.0) 04/28/18 04:30 BUN 27 mg/dL (7-25) H 04/28/18 04:30 Creatinine 0.8 mg/dL (0.7-1.3) 04/28/18 04:30 Est GFR ( Amer) TNP 04/28/18 04:30 Est GFR (Non-Af Amer) TNP 04/28/18 04:30 BUN/Creatinine Ratio 33.8 04/28/18 04:30 Glucose 164 mg/dL (70-105) H 04/28/18 04:30 POC Glucose 167 MG/DL (70 - 105) H 04/28/18 07:11 Calcium 8.6 mg/dL (8.6-10.3) 04/28/18 04:30 Total Bilirubin 1.1 mg/dL (0.3-1.0) H 04/27/18 08:37 AST 33 U/L (13-39) 04/27/18 08:37 ALT 21 U/L (7-52) 04/27/18 08:37 Alkaline Phosphatase 116 U/L (34-104) H 04/27/18 08:37 Total Protein 6.3 gm/dL (6.0-8.3) 04/27/18 08:37 Albumin 2.9 gm/dL (4.2-5.5) L 04/27/18 08:37 Globulin 3.4 gm/dL 04/27/18 08:37 Albumin/Globulin Ratio 0.9 (1.0-1.8) L 04/27/18 08:37 Urine Source CLEAN C 04/26/18 22:15 Urine Color YELLOW 04/26/18 22:15 Urine Clarity CLOUDY (CLEAR) 04/26/18 22:15 Urine pH 7.5 (4.6 - 8.0) 04/26/18 22:15 Ur Specific Many 1.005 (1.005-1.030) 04/26/18 22:15 Urine Protein 100 mg/dL (NEGATIVE) H 04/26/18 22:15 Urine Glucose (UA) NEGATIVE mg/dL (NEGATIVE) 04/26/18 22:15 Urine Ketones NEGATIVE mg/dL (NEGATIVE) 04/26/18 22:15 Urine Blood LARGE (NEGATIVE) H 04/26/18 22:15 Urine Nitrate POSITIVE (NEGATIVE) H 04/26/18 22:15 Urine Bilirubin NEGATIVE (NEGATIVE) 04/26/18 22:15 Urine Urobilinogen 0.2 E.U./dL (0.2 - 1.0) 04/26/18 22:15 Ur Leukocyte Esterase MODERATE (NEGATIVE) H 04/26/18 22:15 Urine RBC 10-25 /hpf (0-5) H 04/26/18 22:15 Urine WBC 10-25 /hpf (0-5) H 04/26/18 22:15 Ur Epithelial Cells NONE SEEN /lpf (FEW) 04/26/18 22:15 Urine Bacteria MODERATE /hpf (NONE SEEN) H 04/26/18 22:15 - Physical Exam Vitals and I&O: Vital Signs Temp 98.6 F 04/28/18 12:00 Pulse 59 04/28/18 16:00 Resp 12 04/28/18 14:00 BP 111/51 04/28/18 16:00 Pulse Ox 100 04/28/18 15:52 Intake & Output 04/27/18 04/28/18 04/28/18 18:59 06:59 18:59 Intake Total 2198.104 1340 1681.824 Output Total 0 Balance 2198.104 1340 1681.824 Weight (lbs) 155 lb 3 oz 155 lb 3 oz 155 lb 3 oz Intake: Intake, IV Amount 2729.002 1629 1201.824 Albumin 25% 25gm/100mL 50 56.667 gm In 200 ml @ 50 mls/hr IV X1 ONE Rx#:[id number] D5-0.9%Ns 1,000 ml @ 100 1000 710.000 mls/hr IV .Q10H [facility] Rx#: [id number] D5-0.9%Ns 1,000 ml @ 80 885.333 mls/hr IV .[id number] [facility] Rx #:[id number] KCL 20mEq/100mL Premix 20 73.333 meq In 100 ml @ 50 mls/ hr IV Q2H [facility] Rx#: [id number] KCL 20mEq/100mL Premix 40 112.5 200 meq In 200 ml @ 50 mls/ hr IV Q2H [facility] Rx#: [id number] Norepinephrine 4 mg In 133.604 118.491 Dextrose 5% 250 ml @ Per Protocol IV TITR PRN Rx#: [id number] Piperacillin Sodium/ 200 100 100 Tazobact 3.375 gm In Sodium Chloride 0.9% 100 ml @ 100 mls/hr IV Q6HR [facility] Rx#:[id number] Vancomycin HCl 500 mg In 100 100 Sodium Chloride 0.9% 100 ml @ 100 mls/hr IV Q12HR [facility] Rx#:[id number] Tube Feeding 310 80 480 Other 400 60 Output: Stool 0 Other: # Voids 6 4 6 # Bowel Movements 0 0 Weight Source Bedscale Bedscale Bedscale Active Medications: Current Medications Acetaminophen (Tylenol) 650 mg GT Q6HR PRN PRN Reason: Pain or Fever >101 Stop: 06/25/18 23:53 Last Admin: 04/27/18 09:39 Dose: 650 mg Acetaminophen/Hydrocodone Bitart ([place] 5mg/325mg) 1 tab GT Q8H PRN PRN Reason: Pain (Severe) Stop: 06/25/18 23:53 Albuterol Sulfate (Albuterol 2.5mg/3ml Neb Ud) 2.5 mg HHN QIDRT [facility] Stop: 06/26/18 06:59 Last Admin: 04/28/18 15:48 Dose: 2.5 mg Alprazolam (Xanax) 0.5 mg GT Q8HR PRN; Protocol PRN Reason: Anxiety Stop: 06/25/18 23:53 Last Admin: 04/27/18 09:15 Dose: 0.5 mg Artificial Tears (Artificial Tears Ophth Soln) 1 drop EACH EYE TID PRN PRN Reason: Dry Eye Stop: 06/25/18 23:53 Ascorbic Acid (Vitamin C) 500 mg GT DAILY [facility] Stop: 06/26/18 08:59 Last Admin: 04/28/18 09:42 Dose: 500 mg Celecoxib (Celebrex) 200 mg GT DAILY [facility] Stop: 06/27/18 08:59 Last Admin: 04/28/18 09:43 Dose: 200 mg Chlorhexidine Gluconate (Peridex) 15 ml MM 0800,2000 [facility] Stop: 06/26/18 07:59 Last Admin: 04/28/18 09:44 Dose: 15 ml Epoetin [place]amy (Epogen) 4,000 units SUBQ MWF [facility] Stop: 06/28/18 08:59 Ferrous Sulfate (Iron) 330 mg GT Q8HR [facility] Stop: 06/26/18 04:59 Last Admin: 04/28/18 14:11 Dose: 300 mg Fluocinonide (Lidex 0.05%) 1 appl TP BID [facility] Stop: 06/26/18 08:59 Last Admin: 04/28/18 12:19 Dose: 1 appl Guaifenesin (Robitussin) 200 mg PO Q4HR PRN PRN Reason: Cough or Congestion Stop: 06/25/18 23:56 Piperacillin Sod/Tazobactam (Sod 3.375 gm/ Sodium Chloride) 100 mls @ 100 mls/ hr IV Q6HR [facility] Stop: 06/26/18 05:59 Last Admin: 04/28/18 11:55 Dose: 100 mls/hr Vancomycin HCl 500 mg/ Sodium (Chloride) 100 mls @ 100 mls/hr IV Q12HR [facility] Stop: 06/26/18 08:59 Last Admin: 04/28/18 10:00 Dose: 100 mls/hr Norepinephrine Bitartrate 4 mg (/ Dextrose) 254 mls @ 0 mls/hr IV TITR PRN; Protocol PRN Reason: To Keep SBP Above 90 Stop: 06/26/18 08:13 Last Admin: 04/28/18 09:18 Dose: 2 mcg/min, 7.62 mls/hr Dextrose/Sodium Chloride (D5-0.9%Ns) 1,000 mls @ 100 mls/hr IV .Q10H [facility] Stop: 06/26/18 13:44 Last Infusion: 04/28/18 16:18 Dose: 100 mls/hr Insulin Aspart (Novolog Insulin Sliding Scale) 0 units SUBQ Q6HR [facility]; Protocol Stop: 06/26/18 11:59 Last Admin: 04/28/18 12:33 Dose: Not Given Ipratropium [place] (Atrovent Neb 0.5mg/2.5ml) 0.5 mg HHN QIDRT [facility] Stop: 06/26/18 06:59 Last Admin: 04/28/18 15:48 Dose: 0.5 mg Ketoconazole (Nizoral 2% Cream) 1 appl TP BID [facility] Stop: 06/26/18 08:59 Last Admin: 04/28/18 12:20 Dose: 1 appl Levothyroxine Sodium (Synthroid) 0.025 mg GT QDAC [facility] Stop: 06/26/18 07:29 Last Admin: 04/28/18 07:30 Dose: 0.025 mg Loperamide HCl (Imodium Oral Soln) 2 mg GT Q6HR PRN PRN Reason: Diarrhea Stop: 06/26/18 03:14 Lorazepam (Ativan) 1 mg IV Q4H PRN; Protocol PRN Reason: Seizure Stop: 06/25/18 23:56 Last Admin: 04/27/18 13:22 Dose: 1 mg Midodrine (Proamatine) 5 mg GT TID [facility] Stop: 06/26/18 08:59 Last Admin: 04/28/18 14:14 Dose: 5 mg Miscellaneous (Vancomycin Iv Per Pharmacy) 1 ea [facility] PRN PRN PRN Reason: PROTOCOL Stop: 06/26/18 07:52 Ondansetron HCl (Zofran) 4 mg IV Q8H PRN PRN Reason: Nausea / Vomiting Stop: 06/25/18 23:56 Pantoprazole Sodium (Protonix) 40 mg GT QDAC [facility] Stop: 06/26/18 07:29 Last Admin: 04/28/18 09:55 Dose: 40 mg Paroxetine HCl (Paxil) 10 mg GT DAILY [facility]; Protocol Stop: 06/26/18 08:59 Last Admin: 04/28/18 09:43 Dose: 10 mg Pyridostigmine [place] (Mestinon) 60 mg GT BID [facility] Stop: 06/26/18 08:59 Last Admin: 04/28/18 09:42 Dose: 60 mg General: weak, alert HEENT: NC/AT, PERRLA Neck: Supple, + trach Lungs: ronchi Cardiovascular: without murmur Abdomen: soft, non-tender, non-distended, positive bowel sound Neurological: alert - Procedures Procedures: Procedures Procedure Code Date EGD PLACE GASTROSTOMY TUBE 55789 06/02/16 INSERTION OF FEEDING DEVICE INTO STOMACH, ENDO [id number] 06/02/16 RESPIRATORY VENTILATION, GREATER THAN 96 CONSECUTIVE HOURS [id number] 06/02/16 VENT MGMT INPAT INIT DAY 06/02/16 VENT MGMT INPAT SUBQ DAY 06/02/16 Internal Medicine Assmt/Plan - Assessment Assessment: sepsis acute uti hypotension-resolved hypokalemia-improving acute renal insufficiency- r/o dehydration vdrf acute on chronic respiratory failure mild protein calorie malnutrition - Plan Plan: continue ivabx vent support ivf for hydration monitor bp continue current plan of care Nutritional Asmnt/Malnutr-PDOC - Dietary Evaluation Malnutrition Findings (Please click <Entered> for more info): Nutritional Asmnt/Malnutrition Start: 04/27/18 09: 23 Text: Status: Complete Freq: Protocol: Document 04/27/18 09:24 LLUC (Rec: 04/27/18 09:38 LLUC [id number]) Nutritional Asmnt/Malnutrition Patient General Information Nutritional Screening High Risk Consult Diagnosis Sepsis, UTI Pertinent Medical Hx/Surgical Hx G-tube; trach vent dependent - nonverbal per RN notes Hx: Schizo, bipolar, anxiety, dementia, melanoma (malignant) Subjective Information Consult received for Russell Dhaliwal . Patient from [facility]; confused. Patient seen sleeping in ICU. Current Diet Order/ Nutrition Support TF Diabetisource 50 mL/hr continuous Patient / S.O Can't verbalize diet edu Pertinent Medications vit C, D5, FeSO4, Epo, Novolog , Synthroid, zofran, protonix, Pertinent Labs 04/27: Alb 2.9, K+ 2.9, Glu 142 04/26: Alb 3.4, K+ 3.5, Glu 122 Nutritional Hx/Data Height 5 ft 6 in Height (Calculated Centimeters) 167.6 Current Weight (lbs) 154 lb Weight (Calculated Kilograms) 69.9 Weight (Calculated Grams) 14133.2 [place] Body Weight 142 % [place] Body Weight 108 Body Mass Index (BMI) 24.8 Weight Status Approriate GI Symptoms Last BM none indicated Difficult in: Chewing Swallowing Food Allergies unknown Cultural/Ethnic/Gnosticist Belief unknown Usual diet at home TF at SNF Skin Integrity/Comment: Russell 12, multiple skin abrasions to L hand, L foot; reddened scabs to L thigh, RUE , r foot, buttock Estimated Nutritional Goals BEE in Kcals: Using Current wt Calories/Kcals/Kg [id number] Kcals Calculated 1750 Protein: Using Current wt Protein g/k-1.2 Protein Calculated 70-84 Fluid: ml 1750 - 1890 (1ml/kcal) Nutritional Problem 1. Problem Problem Increased protein needs Etiology impaired skin integrity Signs/Symptoms: russell 12, multiple skin abrasions/tears Intervention/Recommendation Comments 1. If medically appropriate, recommend increasing TF rate to Diabetisource 60 mL/hr to provide 1728 Kcals, 86g protein, 1178 mL free water, 100% RDI. Recommend 150 mL free water flushes q 6 hours to provide additional 600 mL fluids for total 1778 mL/day. 2. Recommend adding arginine for wound healing. Expected Outcomes/Goals Expected Outcomes/Goals 1. Pt to meet at least 75% of nutritional needs via nutrition support with minimal residuals 2. Wt stability, improved skin integrity, labs to approach WNL. 3. F/U as high risk in 2-3 days, 04/29-04/30
--- NOTE | 2018-04-28 16:44 | Progress Notes ---
DATE: 04/28/2018 SUBJECTIVE: The patient remains in the ICU and on 2 mcg of Levophed. Attempts to wean him off have been unsuccessful. OBJECTIVE: GENERAL: On exam, he is lethargic, noncommunicable. VITAL SIGNS: Temperature 99.5 at 4:00 a.m. this morning, heart rate 59, blood pressure 106/44. ABDOMEN: Soft and nondistended. Bladder is not palpable. He is urinating through the penis, significant amounts of urine which is clear. However, he could still have a bladder distention and I am awaiting the ultrasound results to decide if he needs a Daly or not. EXTREMITIES: No edema. CHEST: Heart and lung sounds normal. LABORATORY DATA: White count stable 5.6, hemoglobin stable at 10.2, platelets 117. Electrolytes: Potassium 3.0, BUN 27, creatinine 0.8, further improvement from yesterday. IMPRESSION: 1. 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 We could try another catheterization at the bedside; however, if it is not needed, I would defer that for the time being. If he requires it to prevent decubitus ulcers, we can attempt it or if he has significant retention, I would also try to put it in at the bedside. If unsuccessful, he will require a trip to the operating room to place the catheter with the help of cystoscopy. 2. History of schizophrenic disorder. No significant change. 3. Hypotension, source unclear, on Levophed. 4. Ventilator dependency and history of myasthenia gravis. 5. History of malignant melanoma. 6. G-tube dependency as well. The patient's chest x-ray has not shown any active pulmonary disease to explain his sepsis and hypotension, although his white count is normal and therefore I am not sure how we can describe this as sepsis based on the low blood pressure alone. His urine culture will always show no infection due to the presence of Daly and therefore, it is difficult to interpret. Blood cultures have been negative of note. I do not see any lactic acid levels for supporting diagnosis as well. JOB# [id number]
[2018-04-28] MEDS ORDERED: NITROGLYCERIN OINT 2% 1 INCH PACKET TP ONE (22:53)
[2018-04-29] MEDS: INSULIN ASPART SLIDING SCALE 100 UNITS/ML UNIT SUBQ SCH ×3 (00:18→12:42)
[2018-04-29 05:23] LABS: ANION GAP 12.4 (7.0-16.0); BUN - UREA NITROGEN 21 mg/dL (7-25); CALCIUM SERUM 8.4 mg/dL (8.6-10.3); CARBON DIOXIDE 21.4 mEq/L (21.0-31.0); CHLORIDE 110 mEq/L (98-107); CREATININE - SERUM 0.7 mg/dL (0.7-1.3); GLUCOSE 117 mg/dL (70-105); POTASSIUM SERUM 3.8 mEq/L (3.5-5.1); SODIUM SERUM 140 mEq/L (136-145)
[2018-04-29 05:31] LABS: HEMATOCRIT 27.9 % (41.0-60); HEMOGLOBIN 9.7 gm/dL (12-16); MEAN CELL VOLUME 90.6 fl (80-99); MEAN CORPUSCULAR HEMOGLOBIN 31.5 pg (27.0-31.0); MEAN CORPUSCULAR HGB CONC 34.8 pg (28.0-36.0); MEAN PLATELET VOLUME 10.3 fl; PLATELET COUNT 117 Th/cmm (150-400); RED BLOOD COUNT 3.08 Mil/cmm (3.80-5.80); RED CELL DISTRIBUTION WIDTH 12.6 % (11.5-20.0)
[2018-04-29 05:33] LABS: MANUAL DIFF REQUIRED? YES
[2018-04-29] MEDS: Ferrous Sulfate 300 MG/5 ML UDC GT SCH ×3 (06:01→21:32)
[2018-04-29] MEDS: D5-0.9%NS 1,000 ML IV SCH ×2 (06:29→16:30)
[2018-04-29] MEDS: Albuterol Nebulizer 2.5mg/3mL HHN SCH ×4 (07:10→18:40)
[2018-04-29] MEDS: Ipratropium Neb 0.5 mg/2.5 mL UD HHN SCH ×4 (07:10→18:40)
[2018-04-29 07:20] LABS: TOTAL CELLS COUNTED 100
[2018-04-29 07:21] LABS: BAND NEUTROPHILE 2 % (0-10); EOSINOPHIL 22 % (0-5); LYMPHOCYTE 19 % (20-50); MONOCYTE 5 % (2-10); NEUTROPHILS 52 % (40-80)
[2018-04-29] MEDS: Levothyroxine 0.025 Mg Tab GT SCH (07:31)
[2018-04-29] MEDS: Pantoprazole 40 mg/Packet GT SCH (07:31)
--- NOTE | 2018-04-29 08:39 | Diagnostic Imaging Report ---
Ultrasound pelvis, limited History: Urinary retention Comparison: Noncontrast technique/procedure: Limited sonographic images of the pelvis were performed. Mildly distended urinary bladder is noted with volume of 138 mL's.. Low-level echoes are seen along the dependent portion of the urinary bladder. IMPRESSION: Mildly distended urinary bladder with volume of 138 mL's. The significance of this finding should be correlated clinically. Dedicated pre and post void bladder wall may be obtained for further assessment. Lobe level echoes along the posterior dependent aspect of the urinary bladder which may represent debris, clots or other lesions. Clinical correlation is recommended.
[2018-04-29] MEDS ORDERED: EPOETIN ALFA IJ SCH (09:00)
--- NOTE | 2018-04-29 09:16 | Diagnostic Imaging Report ---
CHEST X-RAY: AP view INDICATION: Shortness of breath COMPARISON: 04/26/2018 FINDINGS: Tracheostomy tube is stable. There is mild elevation of the left hemidiaphragm. Mild increased interstitial lung markings are noted. No focal consolidation or effusions. Borderline prominent heart is noted. IMPRESSION: Bilateral low lung volumes with mildly increased interstitial lung markings, nonspecific. No focal consolidation or evidence of ronel CHF.
[2018-04-29] MEDS: Multivitamin w/ Minerals Tab GT SCH (09:20)
[2018-04-29] MEDS: Epoetin Alfa 20000 Units/mL Vial SUBQ SCH (09:20)
[2018-04-29] MEDS: Vancomycin HCl 500 MG in Sodium Chloride 0.9% 100 ML IV SCH ×2 (09:21→21:34)
[2018-04-29] MEDS: Chlorhexidine Gluconate 0.12% 15mL Mouthwash MM SCH ×2 (09:21→21:36)
--- NOTE | 2018-04-29 11:52 | Internal Medicine Prog Note ---
Internal Medicine Subjective - Subjective Service Date: 04/29/18 Patient seen and examined:: with staff Patient is:: awake Per staff patient has:: tolerating meds Internal Medicine Objective - Results Result Diagrams: 04/29/18 05:20 04/29/18 04:10 Recent Labs: Laboratory Last Values WBC 7.0 Th/cmm (4.8-10.8) 04/29/18 05:20 RBC 3.08 Mil/cmm (3.80-5.80) L 04/29/18 05:20 Hgb 9.7 gm/dL (12-16) L 04/29/18 05:20 Hct 27.9 % (41.0-60) L 04/29/18 05:20 MCV 90.6 fl (80-99) 04/29/18 05:20 MCH 31.5 pg (27.0-31.0) H 04/29/18 05:20 MCHC Differential 34.8 pg (28.0-36.0) 04/29/18 05:20 RDW 12.6 % (11.5-20.0) 04/29/18 05:20 Plt Count 117 Th/cmm (150-400) L 04/29/18 05:20 MPV 10.3 fl 04/29/18 05:20 Neutrophils % 76.7 % (40.0-80.0) 04/28/18 04:30 Band Neutrophils % 2 % (0-10) 04/29/18 05:20 Lymphocytes % 10.6 % (20.0-50.0) L 04/28/18 04:30 Monocytes % 8.8 % (2.0-10.0) 04/28/18 04:30 Eosinophils % 3.3 % (0.0-5.0) 04/28/18 04:30 Basophils % 0.6 % (0.0-2.0) 04/28/18 04:30 Neutrophils (Manual) 52 % (40-80) 04/29/18 05:20 Lymphocytes 19 % (20-50) L 04/29/18 05:20 Monocytes 5 % (2-10) 04/29/18 05:20 Eosinophils 22 % (0-5) H 04/29/18 05:20 Basophils 0 % (0-3) 04/26/18 22:03 Platelet Estimate ADEQUATE (NORMAL) 04/26/18 22:03 Platelet Morphology NORMAL (NORMAL) 04/26/18 22:03 RBC Morph Micro Appear NORMAL (NORMAL) 04/26/18 22:03 Sodium 140 mEq/L (136-145) 04/29/18 04:10 Potassium 3.8 mEq/L (3.5-5.1) 04/29/18 04:10 Chloride 110 mEq/L (98-107) H 04/29/18 04:10 Carbon Dioxide 21.4 mEq/L (21.0-31.0) 04/29/18 04:10 Anion Gap 12.4 (7.0-16.0) 04/29/18 04:10 BUN 21 mg/dL (7-25) 04/29/18 04:10 Creatinine 0.7 mg/dL (0.7-1.3) 04/29/18 04:10 Est GFR ( Amer) TNP 04/29/18 04:10 Est GFR (Non-Af Amer) TNP 04/29/18 04:10 BUN/Creatinine Ratio 30.0 04/29/18 04:10 Glucose 117 mg/dL (70-105) H 04/29/18 04:10 POC Glucose 134 MG/DL (70-105) H 04/29/18 00:15 Calcium 8.4 mg/dL (8.6-10.3) L 04/29/18 04:10 Total Bilirubin 1.1 mg/dL (0.3-1.0) H 04/27/18 08:37 AST 33 U/L (13-39) 04/27/18 08:37 ALT 21 U/L (7-52) 04/27/18 08:37 Alkaline Phosphatase 116 U/L (34-104) H 04/27/18 08:37 Total Protein 6.3 gm/dL (6.0-8.3) 04/27/18 08:37 Albumin 2.9 gm/dL (4.2-5.5) L 04/27/18 08:37 Globulin 3.4 gm/dL 04/27/18 08:37 Albumin/Globulin Ratio 0.9 (1.0-1.8) L 04/27/18 08:37 Urine Source CLEAN C 04/26/18 22:15 Urine Color YELLOW 04/26/18 22:15 Urine Clarity CLOUDY (CLEAR) 04/26/18 22:15 Urine pH 7.5 (4.6 - 8.0) 04/26/18 22:15 Ur Specific [place] 1.005 (1.005-1.030) 04/26/18 22:15 Urine Protein 100 mg/dL (NEGATIVE) H 04/26/18 22:15 Urine Glucose (UA) NEGATIVE mg/dL (NEGATIVE) 04/26/18 22:15 Urine Ketones NEGATIVE mg/dL (NEGATIVE) 04/26/18 22:15 Urine Blood LARGE (NEGATIVE) H 04/26/18 22:15 Urine Nitrate POSITIVE (NEGATIVE) H 04/26/18 22:15 Urine Bilirubin NEGATIVE (NEGATIVE) 04/26/18 22:15 Urine Urobilinogen 0.2 E.U./dL (0.2 - 1.0) 04/26/18 22:15 Ur Leukocyte Esterase MODERATE (NEGATIVE) H 04/26/18 22:15 Urine RBC 10-25 /hpf (0-5) H 04/26/18 22:15 Urine WBC 10-25 /hpf (0-5) H 04/26/18 22:15 Ur Epithelial Cells NONE SEEN /lpf (FEW) 04/26/18 22:15 Urine Bacteria MODERATE /hpf (NONE SEEN) H 04/26/18 22:15 Vancomycin Trough 13.6 ug/mL (5-10) H 04/28/18 19:40 - Physical Exam Vitals and I&O: Vital Signs Temp 97.9 F 04/29/18 08:00 Pulse 72 04/29/18 11:15 Resp 12 04/29/18 10:00 BP 117/67 04/29/18 10:00 Pulse Ox 100 04/29/18 11:15 Intake & Output 04/28/18 04/29/18 04/29/18 18:59 06:59 18:59 Intake Total 2777.878 1280.000 Output Total 0 Balance 2777.878 1280.000 Weight (lbs) 155 lb Intake: Intake, IV Amount 1407.279 5865.000 D5-0.9%Ns 1,000 ml @ 100 955.000 980.000 mls/hr IV .Q10H [facility] Rx#: [id number] KCL 20mEq/100mL Premix 20 73.333 meq In 100 ml @ 50 mls/ hr IV Q2H [facility] Rx#: [id number] KCL 20mEq/100mL Premix 40 200 meq In 200 ml @ 50 mls/ hr IV Q2H [facility] Rx#: [id number] Norepinephrine 4 mg In 169.545 Dextrose 5% 250 ml @ Per Protocol IV TITR PRN Rx#: [id number] Piperacillin Sodium/ 300.000 200 Tazobact 3.375 gm In Sodium Chloride 0.9% 100 ml @ 100 mls/hr IV Q6HR [facility] Rx#:[id number] Vancomycin HCl 500 mg In 100 100 Sodium Chloride 0.9% 100 ml @ 100 mls/hr IV Q12HR [facility] Rx#:[id number] Tube Feeding 980 Output: Stool 0 Other: # Voids 6 Weight Source Estimated Active Medications: Current Medications Acetaminophen (Tylenol) 650 mg GT Q6HR PRN PRN Reason: Pain or Fever >101 Stop: 06/25/18 23:53 Last Admin: 04/27/18 09:39 Dose: 650 mg Acetaminophen/Hydrocodone Bitart ([place] 5mg/325mg) 1 tab GT Q8H PRN PRN Reason: Pain (Severe) Stop: 06/25/18 23:53 Albuterol Sulfate (Albuterol 2.5mg/3ml Neb Ud) 2.5 mg HHN QIDRT [facility] Stop: 06/26/18 06:59 Last Admin: 04/29/18 11:15 Dose: 2.5 mg Alprazolam (Xanax) 0.5 mg GT Q8HR PRN; Protocol PRN Reason: Anxiety Stop: 06/25/18 23:53 Last Admin: 04/27/18 09:15 Dose: 0.5 mg Artificial Tears (Artificial Tears Ophth Soln) 1 drop EACH EYE TID PRN PRN Reason: Dry Eye Stop: 06/25/18 23:53 Artificial Tears (Lubrifresh Ophth Oint) 1 appl EACH EYE BID [facility] Stop: 06/28/18 16:59 Ascorbic Acid (Vitamin C) 500 mg GT DAILY [facility] Stop: 06/26/18 08:59 Last Admin: 04/29/18 09:20 Dose: 500 mg Celecoxib (Celebrex) 200 mg GT DAILY [facility] Stop: 06/27/18 08:59 Last Admin: 04/29/18 09:20 Dose: 200 mg Chlorhexidine Gluconate (Peridex) 15 ml MM 0800,1999 [facility] Stop: 06/26/18 07:59 Last Admin: 04/29/18 09:21 Dose: 15 ml Epoetin Jeramy (Epogen) 4,000 units SUBQ MWF [facility] Stop: 06/28/18 08:59 Last Admin: 04/29/18 09:20 Dose: 4,000 units Ferrous Sulfate (Iron) 330 mg GT Q8HR [facility] Stop: 06/26/18 04:59 Last Admin: 04/29/18 06:01 Dose: 330 mg Fluocinonide (Lidex 0.05%) 1 appl TP BID [facility] Stop: 06/26/18 08:59 Last Admin: 04/29/18 09:19 Dose: 1 appl Guaifenesin (Robitussin) 200 mg PO Q4HR PRN PRN Reason: Cough or Congestion Stop: 06/25/18 23:56 Piperacillin Sod/Tazobactam (Sod 3.375 gm/ Sodium Chloride) 100 mls @ 100 mls/ hr IV Q6HR [facility] Stop: 06/26/18 05:59 Last Infusion: 04/29/18 06:33 Dose: Infused Vancomycin HCl 500 mg/ Sodium (Chloride) 100 mls @ 100 mls/hr IV Q12HR [facility] Stop: 06/26/18 08:59 Last Admin: 04/29/18 09:21 Dose: 100 mls/hr Norepinephrine Bitartrate 4 mg (/ Dextrose) 254 mls @ 0 mls/hr IV TITR PRN; Protocol PRN Reason: To Keep SBP Above 90 Stop: 06/26/18 08:13 Last Titration: 04/28/18 16:00 Dose: 0 mcg/min, 0 mls/hr Dextrose/Sodium Chloride (D5-0.9%Ns) 1,000 mls @ 100 mls/hr IV .Q10H [facility] Stop: 06/26/18 13:44 Last Admin: 04/29/18 06:29 Dose: 100 mls/hr Insulin Aspart (Novolog Insulin Sliding Scale) 0 units SUBQ Q6HR [facility]; Protocol Stop: 06/26/18 11:59 Last Admin: 04/29/18 06:00 Dose: Not Given Ipratropium [place] (Atrovent Neb 0.5mg/2.5ml) 0.5 mg HHN QIDRT [facility] Stop: 06/26/18 06:59 Last Admin: 04/29/18 11:15 Dose: 0.5 mg Ketoconazole (Nizoral 2% Cream) 1 appl TP BID [facility] Stop: 06/26/18 08:59 Last Admin: 04/29/18 09:19 Dose: 1 appl Levothyroxine Sodium (Synthroid) 0.025 mg GT QDAC [facility] Stop: 06/26/18 07:29 Last Admin: 04/29/18 07:31 Dose: 0.025 mg Loperamide HCl (Imodium Oral Soln) 2 mg GT Q6HR PRN PRN Reason: Diarrhea Stop: 06/26/18 03:14 Lorazepam (Ativan) 1 mg IV Q4H PRN; Protocol PRN Reason: Seizure Stop: 06/25/18 23:56 Last Admin: 04/27/18 13:22 Dose: 1 mg Midodrine (Proamatine) 5 mg GT TID [facility] Stop: 06/26/18 08:59 Last Admin: 04/29/18 09:20 Dose: 5 mg Miscellaneous (Vancomycin Iv Per Pharmacy) 1 ea MC PRN PRN PRN Reason: PROTOCOL Stop: 06/26/18 07:52 Nystatin (Nystop) 100 units TP DAILY PRN PRN Reason: Rash Stop: 06/28/18 11:49 Ondansetron HCl (Zofran) 4 mg IV Q8H PRN PRN Reason: Nausea / Vomiting Stop: 06/25/18 23:56 Pantoprazole Sodium (Protonix) 40 mg GT QDAC [facility] Stop: 06/26/18 07:29 Last Admin: 04/29/18 07:31 Dose: 40 mg Paroxetine HCl (Paxil) 10 mg GT DAILY [facility]; Protocol Stop: 06/26/18 08:59 Last Admin: 04/29/18 09:20 Dose: 10 mg Phentolamine Mesylate (Regitine) 5 mg SUBQ X1 ONE Stop: 04/28/18 20:39 Pyridostigmine [place] (Mestinon) 60 mg GT BID [facility] Stop: 06/26/18 08:59 Last Admin: 04/29/18 09:21 Dose: 60 mg General: weak, alert HEENT: NC/AT, PERRLA Neck: Supple, + trach Lungs: ronchi Cardiovascular: without murmur Abdomen: soft, non-tender, non-distended, positive bowel sound Neurological: alert - Procedures Procedures: Procedures Procedure Code Date EGD PLACE GASTROSTOMY TUBE 19997 06/02/16 INSERTION OF FEEDING DEVICE INTO STOMACH, ENDO [id number] 06/02/16 RESPIRATORY VENTILATION, 24-96 CONSECUTIVE HOURS [id number] 04/27/18 RESPIRATORY VENTILATION, GREATER THAN 96 CONSECUTIVE HOURS [id number] 06/02/16 VENT MGMT INPAT INIT DAY 06/02/16 VENT MGMT INPAT SUBQ 06/02/16 Internal Medicine Assmt/Plan - Assessment Assessment: sepsis acute uti hypotension-resolved hypokalemia-improving acute renal insufficiency- r/o dehydration vdrf acute on chronic respiratory failure mild protein calorie malnutrition - Plan Plan: will add nystatin powder continue ivabx vent support ivf for hydration monitor bp continue current plan of care Nutritional Asmnt/Malnutr-PDOC - Dietary Evaluation Malnutrition Findings (Please click <Entered> for more info): Nutritional Asmnt/Malnutrition Start: 04/27/18 09: 23 Text: Status: Complete Freq: Protocol: Document 04/27/18 09:24 LLUC (Rec: 04/27/18 09:38 [id number]) Nutritional Asmnt/Malnutrition Patient General Information Nutritional Screening High Risk Consult Diagnosis Sepsis, UTI Pertinent Medical Hx/Surgical Hx G-tube; 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 Patient from [facility]; confused. Patient seen sleeping in ICU. Current Diet Order/ Nutrition Support TF Diabetisource 50 mL/hr continuous Patient / S.O Can't verbalize diet edu Pertinent Medications vit C, D5, FeSO4, Epo, Novolog , Synthroid, zofran, protonix, Pertinent Labs 04/27: Alb 2.9, K+ 2.9, Glu 142 04/26: Alb 3.4, K+ 3.5, Glu 122 Nutritional Hx/Data Height 5 ft 6 in Height (Calculated Centimeters) 167.6 Current Weight (lbs) 154 lb Weight (Calculated Kilograms) 69.9 Weight (Calculated Grams) 91946.2 [place] Body Weight 142 % [place] Body Weight 108 Body Mass Index (BMI) 24.8 Weight Status Approriate GI Symptoms Last BM none indicated Difficult in: Chewing Swallowing Food Allergies unknown Cultural/Ethnic/Zoroastrianism Belief unknown Usual diet at home TF at SNF Skin Integrity/Comment: Russell 12, multiple skin abrasions to L hand, L foot; reddened scabs to L thigh, RUE , r foot, buttock Estimated Nutritional Goals BEE in Kcals: Using Current wt Calories/Kcals/Kg [id number] Kcals Calculated 1750 Protein: Using Current wt Protein g/k-1.2 Protein Calculated 70-84 Fluid: ml 1750 - 1890 (1ml/kcal) Nutritional Problem 1. Problem Problem Increased protein needs Etiology impaired skin integrity Signs/Symptoms: russell 12, multiple skin abrasions/tears Intervention/Recommendation Comments 1. If medically appropriate, recommend increasing TF rate to Diabetisource 60 mL/hr to provide 1728 Kcals, 86g protein, 1178 mL free water, 100% RDI. Recommend 150 mL free water flushes q 6 hours to provide additional 600 mL fluids for total 1778 mL/day. 2. Recommend adding arginine for wound healing. Expected Outcomes/Goals Expected Outcomes/Goals 1. Pt to meet at least 75% of nutritional needs via nutrition support with minimal residuals 2. Wt stability, improved skin integrity, labs to approach WNL. 3. F/U as high risk in 2-3 days, 04/29-04/30
[2018-04-29] MEDS: Artificial Tear Ophth Oint 3.5 Gm Tube EACH EYE SCH (16:49)
--- NOTE | 2018-04-29 17:44 | Progress Notes ---
DATE: UROLOGY FOLLOWUP SUBJECTIVE: The patient remains in the ICU, but is now doing well without the Levophed support. His urine is clear and draining plentiful by incontinence. PHYSICAL EXAMINATION: VITAL SIGNS: Blood pressure 153/85, heart rate 64, saturating 97% on the ventilator with 18 respirations, and temperature 97.4. ABDOMEN: Soft. Bladder is nontender and not palpable. EXTREMITIES: No edema. LUNGS: The patient is on the ventilator with occasional rales and rhonchi. G-tube is functioning well. LABORATORY DATA: White count 7000. BUN 21 and creatinine 0.7. Urine culture grew out E. coli ESBL organism, and Proteus, both are sensitive to the Zosyn that he is getting. IMPRESSION: 1. Chronic Daly status, now without one, but urinating well with ultrasound showing volume of only 138 mL, which is [id number] and can easily be tolerated without the need for a Daly. This will help treat the infection faster and better and prevent future infections without the Daly. It does carry a small risk of decubitus ulcers if the patient is not kept monitored and dry. If the Daly is needed, we will have to consider a cystoscopy. 2. Hypotension, etiology unclear. Now without Levophed. 3. History of dementia. No change. 4. Ventilator. NG tube status stable. 5. 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 JOB# [id number]
[2018-04-29] MEDS: NYSTATIN 100000 UNITS/GM POWD TP PRN (21:32)
[2018-04-30] MEDS: INSULIN ASPART SLIDING SCALE 100 UNITS/ML UNIT SUBQ SCH ×3 (01:05→17:19)
[2018-04-30] MEDS: D5-0.9%NS 1,000 ML IV SCH ×3 (01:16→23:34)
[2018-04-30 05:00] LABS: HEMATOCRIT 26.4 % (41.0-60); MEAN CELL VOLUME 90.9 fl (80-99); MEAN CORPUSCULAR HEMOGLOBIN 30.9 pg (27.0-31.0); MEAN PLATELET VOLUME 11.1 fl; PLATELET COUNT 134 Th/cmm (150-400); RED CELL DISTRIBUTION WIDTH 12.5 % (11.5-20.0); WHITE BLOOD COUNT 6.9 Th/cmm (4.8-10.8)
[2018-04-30 05:06] LABS: ANION GAP 8.1 (7.0-16.0); BUN - UREA NITROGEN 18 mg/dL (7-25); CALCIUM SERUM 8.2 mg/dL (8.6-10.3); CARBON DIOXIDE 23.4 mEq/L (21.0-31.0); CHLORIDE 112 mEq/L (98-107); CREATININE - SERUM 0.6 mg/dL (0.7-1.3); GLUCOSE 107 mg/dL (70-105); POTASSIUM SERUM 3.5 mEq/L (3.5-5.1); SODIUM SERUM 140 mEq/L (136-145)
[2018-04-30 05:08] LABS: MANUAL DIFF REQUIRED? YES
[2018-04-30] MEDS: Ferrous Sulfate 300 MG/5 ML UDC GT SCH ×3 (06:39→20:46)
[2018-04-30 06:55] LABS: TOTAL CELLS COUNTED 100
[2018-04-30 06:56] LABS: BAND NEUTROPHILE 1 % (0-10); EOSINOPHIL 15 % (0-5); LYMPHOCYTE 18 % (20-50); MONOCYTE 4 % (2-10); NEUTROPHILS 62 % (40-80)
[2018-04-30] MEDS: Ipratropium Neb 0.5 mg/2.5 mL UD HHN SCH ×4 (07:09→19:12)
[2018-04-30] MEDS: Albuterol Nebulizer 2.5mg/3mL HHN SCH ×4 (07:09→19:12)
[2018-04-30] MEDS: Pantoprazole 40 mg/Packet GT SCH (07:45)
[2018-04-30] MEDS: Levothyroxine 0.025 Mg Tab GT SCH (07:45)
[2018-04-30] MEDS: Chlorhexidine Gluconate 0.12% 15mL Mouthwash MM SCH ×2 (08:57→20:46)
[2018-04-30] MEDS: Artificial Tear Ophth Oint 3.5 Gm Tube EACH EYE SCH ×2 (08:57→17:16)
[2018-04-30] MEDS: Multivitamin w/ Minerals Tab GT SCH (08:58)
--- NOTE | 2018-04-30 11:26 | Internal Medicine Prog Note ---
Internal Medicine Subjective - Subjective Patient seen and examined:: with staff, chart reviewed Patient is:: awake, non-verbal, interactive Patient Complaints of:: congestion Per staff patient has:: no adverse event, no episodes of fall, combative, tolerating meds Internal Medicine Objective - Results Result Diagrams: 04/30/18 04:35 04/30/18 04:35 Recent Labs: Laboratory Last Values WBC 6.9 Th/cmm (4.8-10.8) 04/30/18 04:35 RBC 2.90 Mil/cmm (3.80-5.80) L 04/30/18 04:35 Hgb 9.0 gm/dL (12-16) L 04/30/18 04:35 Hct 26.4 % (41.0-60) L 04/30/18 04:35 MCV 90.9 fl (80-99) 04/30/18 04:35 MCH 30.9 pg (27.0-31.0) 04/30/18 04:35 MCHC Differential 34.0 pg (28.0-36.0) 04/30/18 04:35 RDW 12.5 % (11.5-20.0) 04/30/18 04:35 Plt Count 134 Th/cmm (150-400) L 04/30/18 04:35 MPV 11.1 fl 04/30/18 04:35 Neutrophils % 76.7 % (40.0-80.0) 04/28/18 04:30 Band Neutrophils % 1 % (0-10) 04/30/18 04:35 Lymphocytes % 10.6 % (20.0-50.0) L 04/28/18 04:30 Monocytes % 8.8 % (2.0-10.0) 04/28/18 04:30 Eosinophils % 3.3 % (0.0-5.0) 04/28/18 04:30 Basophils % 0.6 % (0.0-2.0) 04/28/18 04:30 Neutrophils (Manual) 62 % (40-80) 04/30/18 04:35 Lymphocytes 18 % (20-50) L 04/30/18 04:35 Monocytes 4 % (2-10) 04/30/18 04:35 Eosinophils 15 % (0-5) H 04/30/18 04:35 Basophils 0 % (0-3) 04/26/18 22:03 Platelet Estimate ADEQUATE (NORMAL) 04/26/18 22:03 Platelet Morphology NORMAL (NORMAL) 04/26/18 22:03 RBC Morph Micro Appear NORMAL (NORMAL) 04/26/18 22:03 Sodium 140 mEq/L (136-145) 04/30/18 04:35 Potassium 3.5 mEq/L (3.5-5.1) 04/30/18 04:35 Chloride 112 mEq/L (98-107) H 04/30/18 04:35 Carbon Dioxide 23.4 mEq/L (21.0-31.0) 04/30/18 04:35 Anion Gap 8.1 (7.0-16.0) 04/30/18 04:35 BUN 18 mg/dL (7-25) 04/30/18 04:35 Creatinine 0.6 mg/dL (0.7-1.3) L 04/30/18 04:35 Est GFR ( Amer) TNP 04/30/18 04:35 Est GFR (Non-Af Amer) TNP 04/30/18 04:35 BUN/Creatinine Ratio 30.0 04/30/18 04:35 Glucose 107 mg/dL (70-105) H 04/30/18 04:35 POC Glucose 98 MG/DL (70 - 105) 04/30/18 00:54 Calcium 8.2 mg/dL (8.6-10.3) L 04/30/18 04:35 Total Bilirubin 1.1 mg/dL (0.3-1.0) H 04/27/18 08:37 AST 33 U/L (13-39) 04/27/18 08:37 ALT 21 U/L (7-52) 04/27/18 08:37 Alkaline Phosphatase 116 U/L (34-104) H 04/27/18 08:37 Total Protein 6.3 gm/dL (6.0-8.3) 04/27/18 08:37 Albumin 2.9 gm/dL (4.2-5.5) L 04/27/18 08:37 Globulin 3.4 gm/dL 04/27/18 08:37 Albumin/Globulin Ratio 0.9 (1.0-1.8) L 04/27/18 08:37 Urine Source CLEAN C 04/26/18 22:15 Urine Color YELLOW 04/26/18 22:15 Urine Clarity CLOUDY (CLEAR) 04/26/18 22:15 Urine pH 7.5 (4.6 - 8.0) 04/26/18 22:15 Ur Specific [place] 1.005 (1.005-1.030) 04/26/18 22:15 Urine Protein 100 mg/dL (NEGATIVE) H 04/26/18 22:15 Urine Glucose (UA) NEGATIVE mg/dL (NEGATIVE) 04/26/18 22:15 Urine Ketones NEGATIVE mg/dL (NEGATIVE) 04/26/18 22:15 Urine Blood LARGE (NEGATIVE) H 04/26/18 22:15 Urine Nitrate POSITIVE (NEGATIVE) H 04/26/18 22:15 Urine Bilirubin NEGATIVE (NEGATIVE) 04/26/18 22:15 Urine Urobilinogen 0.2 E.U./dL (0.2 - 1.0) 04/26/18 22:15 Ur Leukocyte Esterase MODERATE (NEGATIVE) H 04/26/18 22:15 Urine RBC 10-25 /hpf (0-5) H 04/26/18 22:15 Urine WBC 10-25 /hpf (0-5) H 04/26/18 22:15 Ur Epithelial Cells NONE SEEN /lpf (FEW) 04/26/18 22:15 Urine Bacteria MODERATE /hpf (NONE SEEN) H 04/26/18 22:15 Vancomycin Trough 13.6 ug/mL (5-10) H 04/28/18 19:40 - Physical Exam Vitals and I&O: Vital Signs Temp 97.6 F 04/30/18 10:00 Pulse 65 04/30/18 10:42 Resp 14 04/30/18 10:00 BP 122/65 04/30/18 10:00 Pulse Ox 98 04/30/18 10:42 Intake & Output 04/29/18 04/30/18 04/30/18 18:59 06:59 18:59 Intake Total 1100 1636.667 250 Balance 1100 1636.667 250 Weight (lbs) 70.307 kg Intake: Intake, IV Amount 1100 976.667 250 D5-0.9%Ns 1,000 ml @ 100 1000 876.667 mls/hr IV .Q10H [facility] Rx#: [id number] Piperacillin Sodium/ 100 Tazobact 3.375 gm In Sodium Chloride 0.9% 100 ml @ 100 mls/hr IV Q6HR [facility] Rx#:[id number] Vancomycin HCl 1 gm In 250 Sodium Chloride 0.9% 250 ml @ 165 mls/hr IV Q24H [facility] Rx#:[id number] Vancomycin HCl 500 mg In 100 Sodium Chloride 0.9% 100 ml @ 100 mls/hr IV Q12HR [facility] Rx#:[id number] Tube Feeding 660 Other: # Voids 8 Stool Characteristics Soft Brown Black Weight Source Bedscale Active Medications: Current Medications Acetaminophen (Tylenol) 650 mg GT Q6HR PRN PRN Reason: Pain or Fever >101 Stop: 06/25/18 23:53 Last Admin: 04/27/18 09:39 Dose: 650 mg Acetaminophen/Hydrocodone Bitart ([place] 5mg/325mg) 1 tab GT Q8H PRN PRN Reason: Pain (Severe) Stop: 06/25/18 23:53 Albuterol Sulfate (Albuterol 2.5mg/3ml Neb Ud) 2.5 mg HHN QIDRT [facility] Stop: 06/26/18 06:59 Last Admin: 04/30/18 10:42 Dose: 2.5 mg Alprazolam (Xanax) 0.5 mg GT Q8HR PRN; Protocol PRN Reason: Anxiety Stop: 06/25/18 23:53 Last Admin: 04/27/18 09:15 Dose: 0.5 mg Artificial Tears (Artificial Tears Ophth Soln) 1 drop EACH EYE TID PRN PRN Reason: Dry Eye Stop: 06/25/18 23:53 Artificial Tears (Lubrifresh Ophth Oint) 1 appl EACH EYE BID [facility] Stop: 06/28/18 16:59 Last Admin: 04/30/18 08:57 Dose: 1 appl Ascorbic Acid (Vitamin C) 500 mg GT DAILY [facility] Stop: 06/26/18 08:59 Last Admin: 04/30/18 08:58 Dose: 500 mg Celecoxib (Celebrex) 200 mg GT DAILY [facility] Stop: 06/27/18 08:59 Last Admin: 04/30/18 08:58 Dose: 200 mg Chlorhexidine Gluconate (Peridex) 15 ml MM 0800,1999 [facility] Stop: 06/26/18 07:59 Last Admin: 04/30/18 08:57 Dose: 15 ml Epoetin Jeramy (Epogen) 4,000 units SUBQ MWF [facility] Stop: 06/28/18 08:59 Last Admin: 04/29/18 09:20 Dose: 4,000 units Ferrous Sulfate (Iron) 330 mg GT Q8HR [facility] Stop: 06/26/18 04:59 Last Admin: 04/30/18 06:39 Dose: 330 mg Fluocinonide (Lidex 0.05%) 1 appl TP BID [facility] Stop: 06/26/18 08:59 Last Admin: 04/30/18 08:58 Dose: 1 appl Guaifenesin (Robitussin) 200 mg PO Q4HR PRN PRN Reason: Cough or Congestion Stop: 06/25/18 23:56 Piperacillin Sod/Tazobactam (Sod 3.375 gm/ Sodium Chloride) 100 mls @ 100 mls/ hr IV Q6HR [facility] Stop: 06/26/18 05:59 Last Admin: 04/30/18 06:32 Dose: 100 mls/hr Norepinephrine Bitartrate 4 mg (/ Dextrose) 254 mls @ 0 mls/hr IV TITR PRN; Protocol PRN Reason: To Keep SBP Above 90 Stop: 06/26/18 08:13 Last Titration: 04/28/18 16:00 Dose: 0 mcg/min, 0 mls/hr Dextrose/Sodium Chloride (D5-0.9%Ns) 1,000 mls @ 100 mls/hr IV .Q10H [facility] Stop: 06/26/18 13:44 Last Admin: 04/30/18 01:16 Dose: 100 mls/hr Vancomycin HCl 1 gm/ Sodium (Chloride) 250 mls @ 165 mls/hr IV Q24H [facility] Stop: 06/29/18 08:59 Last Infusion: 04/30/18 10:35 Dose: Infused Insulin Aspart (Novolog Insulin Sliding Scale) 0 units SUBQ Q6HR [facility]; Protocol Stop: 06/26/18 11:59 Last Admin: 04/30/18 01:05 Dose: Not Given Ipratropium Lindsey (Atrovent Neb 0.5mg/2.5ml) 0.5 mg HHN QIDRT [facility] Stop: 06/26/18 06:59 Last Admin: 04/30/18 10:42 Dose: 0.5 mg Ketoconazole (Nizoral 2% Cream) 1 appl TP BID [facility] Stop: 06/26/18 08:59 Last Admin: 04/30/18 08:57 Dose: 1 appl Levothyroxine Sodium (Synthroid) 0.025 mg GT QDAC [facility] Stop: 06/26/18 07:29 Last Admin: 04/30/18 07:45 Dose: 0.025 mg Loperamide HCl (Imodium Oral Soln) 2 mg GT Q6HR PRN PRN Reason: Diarrhea Stop: 06/26/18 03:14 Lorazepam (Ativan) 1 mg IV Q4H PRN; Protocol PRN Reason: Seizure Stop: 06/25/18 23:56 Last Admin: 04/30/18 08:30 Dose: 1 mg Midodrine (Proamatine) 5 mg GT TID [facility] Stop: 06/26/18 08:59 Last Admin: 04/30/18 08:59 Dose: 5 mg Miscellaneous (Vancomycin Iv Per Pharmacy) 1 ea MC PRN PRN PRN Reason: PROTOCOL Stop: 06/26/18 07:52 Nystatin (Nystop) 100 units TP DAILY PRN PRN Reason: Rash Stop: 06/28/18 11:49 Last Admin: 04/29/18 21:32 Dose: 100 units Ondansetron HCl (Zofran) 4 mg IV Q8H PRN PRN Reason: Nausea / Vomiting Stop: 06/25/18 23:56 Pantoprazole Sodium (Protonix) 40 mg GT QDAC [facility] Stop: 06/26/18 07:29 Last Admin: 04/30/18 07:45 Dose: 40 mg Paroxetine HCl (Paxil) 10 mg GT DAILY [facility]; Protocol Stop: 06/26/18 08:59 Last Admin: 04/30/18 08:58 Dose: 10 mg Pyridostigmine Lindsey (Mestinon) 60 mg GT BID [facility] Stop: 06/26/18 08:59 Last Admin: 04/30/18 08:59 Dose: 60 mg General: weak, demented HEENT: NC/AT, PERRLA Neck: Supple, + trach Lungs: ronchi Cardiovascular: without murmur Abdomen: soft, non-tender, non-distended, positive bowel sound Extremities: excoriation Neurological: alert - Procedures Procedures: Procedures Procedure Code Date EGD PLACE GASTROSTOMY TUBE 82094 06/02/16 INSERTION OF FEEDING DEVICE INTO STOMACH, ENDO [id number] 06/02/16 RESPIRATORY VENTILATION, 24-96 CONSECUTIVE HOURS [id number] 04/27/18 RESPIRATORY VENTILATION, GREATER THAN 96 CONSECUTIVE HOURS [id number] 06/02/16 VENT MGMT INPAT INIT DAY 06/02/16 VENT MGMT INPAT SUBQ DAY 06/02/16 Internal Medicine Assmt/Plan - Assessment Assessment: Assessment Assessment: sepsis acute uti hypotension-resolved hypokalemia-improving acute renal insufficiency- r/o dehydration vdrf acute on chronic respiratory failure mild protein calorie malnutrition - Plan Plan: will add nystatin powder continue ivabx vent support ivf for hydration monitor bp continue current plan of care - Plan Plan: cpm Nutritional Asmnt/Malnutr-PDOC - Dietary Evaluation Malnutrition Findings (Please click <Entered> for more info): Nutritional Asmnt/Malnutrition Start: 04/27/18 09: 23 Text: Status: Complete Freq: Protocol: Document 04/27/18 09:24 LLUC (Rec: 04/27/18 09:38 LLUC [id number]) Nutritional Asmnt/Malnutrition Patient General Information Nutritional Screening High Risk Consult Diagnosis Sepsis, UTI Pertinent Medical Hx/Surgical Hx G-tube; trach vent dependent - nonverbal per RN notes Hx: Schizo, bipolar, anxiety, dementia, melanoma (malignant) Subjective Information Consult received for Russell Dhaliwal . Patient from [facility]; confused. Patient seen sleeping in ICU. Current Diet Order/ Nutrition Support TF Diabetisource 50 mL/hr continuous Patient / S.O Can't verbalize diet edu Pertinent Medications vit C, D5, FeSO4, Epo, Novolog , Synthroid, zofran, protonix, Pertinent Labs 04/27: Alb 2.9, K+ 2.9, Glu 142 04/26: Alb 3.4, K+ 3.5, Glu 122 Nutritional Hx/Data Height 1.68 m Height (Calculated Centimeters) 167.6 Current Weight (lbs) 69.853 kg Weight (Calculated Kilograms) 69.9 Weight (Calculated Grams) 34465.2 [place] Body Weight 142 % [place] Body Weight 108 Body Mass Index (BMI) 24.8 Weight Status Approriate GI Symptoms Last BM none indicated Difficult in: Chewing Swallowing Food Allergies unknown Cultural/Ethnic/Zoroastrian Belief unknown Usual diet at home TF at SNF Skin Integrity/Comment: Russell 12, multiple skin abrasions to L hand, L foot; reddened scabs to L thigh, RUE , r foot, buttock Estimated Nutritional Goals BEE in Kcals: Using Current wt Calories/Kcals/Kg [id number] Kcals Calculated 1750 Protein: Using Current wt Protein g/k-1.2 Protein Calculated 70-84 Fluid: ml 1750 - 1890 (1ml/kcal) Nutritional Problem 1. Problem Problem Increased protein needs Etiology impaired skin integrity Signs/Symptoms: russell 12, multiple skin abrasions/tears Intervention/Recommendation Comments 1. If medically appropriate, recommend increasing TF rate to Diabetisource 60 mL/hr to provide 1728 Kcals, 86g protein, 1178 mL free water, 100% RDI. Recommend 150 mL free water flushes q 6 hours to provide additional 600 mL fluids for total 1778 mL/day. 2. Recommend adding arginine for wound healing. Expected Outcomes/Goals Expected Outcomes/Goals 1. Pt to meet at least 75% of nutritional needs via nutrition support with minimal residuals 2. Wt stability, improved skin integrity, labs to approach WNL. 3. F/U as high risk in 2-3 days, 04/29-04/30
[2018-05-01] MEDS: INSULIN ASPART SLIDING SCALE 100 UNITS/ML UNIT SUBQ SCH ×4 (01:01→17:02)
--- NOTE | 2018-05-01 03:08 | Progress Notes ---
DATE: UROLOGY PROGRESS NOTE SUBJECTIVE: The patient remains in the ICU, but is stable and without any Levophed. His urinary output has been adequate and clear. PHYSICAL EXAMINATION: VITAL SIGNS: Temperature 98.3, pulse 74, blood pressure 143/42, and saturating 97%. Ventilator settings have been the same. G-tube feedings being tolerated. ABDOMEN: Soft. Bladder is not distended. EXTREMITIES: No edema. LABORATORY DATA: White count 6.9, hemoglobin 9.0, slightly lower than 3 days ago; platelets 134. BUN 18 and creatinine 0.6. Electrolytes normal. Glucose 119, 103. IMPRESSION: 1. Urinary incontinence with chronic Daly in the past, now without it and doing well. Continue the same care and avoid Daly if possible. 2. Urinary tract infection with a culture showing Escherichia coli and Proteus, both being treated with antibiotics and hopefully will respond as the catheter is not there anymore. 3. Ventilator dependency, quite stable. 4. G-tube status, tolerating well. 5. History of schizophrenia and altered level of consciousness, improved. 6. Lastly, remote history of myasthenia and melanoma. JOB# [id number]
[2018-05-01] MEDS: Ferrous Sulfate 300 MG/5 ML UDC GT SCH ×3 (05:00→20:59)
[2018-05-01] MEDS: Levothyroxine 0.025 Mg Tab GT SCH (06:39)
[2018-05-01] MEDS: Pantoprazole 40 mg/Packet GT SCH (06:39)
[2018-05-01] MEDS: Albuterol Nebulizer 2.5mg/3mL HHN SCH ×4 (07:44→18:37)
[2018-05-01] MEDS: Ipratropium Neb 0.5 mg/2.5 mL UD HHN SCH ×4 (07:44→18:37)
--- NOTE | 2018-05-01 08:28 | Diagnostic Imaging Report ---
CHEST X-RAY: AP view INDICATION: Shortness of breath COMPARISON: 04/29/2018 FINDINGS: Tracheostomy tube is stable. Developing CHF is seen with small right effusion and hazy bilateral infiltrates. Low lung volumes are noted. Heart size is borderline prominent. IMPRESSION: Developing CHF with small right effusion. Hazy bilateral infiltrates are also noted.
[2018-05-01] MEDS: Multivitamin w/ Minerals Tab GT SCH (08:46)
[2018-05-01] MEDS: Artificial Tear Ophth Oint 3.5 Gm Tube EACH EYE SCH ×2 (08:48→16:11)
[2018-05-01] MEDS: NYSTATIN 100000 UNITS/GM POWD TP PRN ×2 (08:48→16:11)
[2018-05-01] MEDS: Chlorhexidine Gluconate 0.12% 15mL Mouthwash MM SCH ×2 (08:48→20:56)
[2018-05-01] MEDS: D5-0.9%NS 1,000 ML IV SCH (08:49)
[2018-05-01] MEDS: Epoetin Alfa 20000 Units/mL Vial SUBQ SCH (08:52)
[2018-05-01] MEDS ORDERED: Septra IV Per Pharmacy MC SCH (12:30)
[2018-05-01] MEDS: D5-0.45NS 1,000 ML IV SCH (14:10)
--- NOTE | 2018-05-01 14:45 | Internal Medicine Prog Note ---
Internal Medicine Subjective - Subjective Service Date: 05/01/18 Patient seen and examined:: with staff Patient is:: awake, non-verbal, interactive Patient Complaints of:: congestion Per staff patient has:: no adverse event, no episodes of fall, combative, tolerating meds Internal Medicine Objective - Results Result Diagrams: 04/30/18 04:35 04/30/18 04:35 Recent Labs: Laboratory Last Values WBC 6.9 Th/cmm (4.8-10.8) 04/30/18 04:35 RBC 2.90 Mil/cmm (3.80-5.80) L 04/30/18 04:35 Hgb 9.0 gm/dL (12-16) L 04/30/18 04:35 Hct 26.4 % (41.0-60) L 04/30/18 04:35 MCV 90.9 fl (80-99) 04/30/18 04:35 MCH 30.9 pg (27.0-31.0) 04/30/18 04:35 MCHC Differential 34.0 pg (28.0-36.0) 04/30/18 04:35 RDW 12.5 % (11.5-20.0) 04/30/18 04:35 Plt Count 134 Th/cmm (150-400) L 04/30/18 04:35 MPV 11.1 fl 04/30/18 04:35 Neutrophils % 76.7 % (40.0-80.0) 04/28/18 04:30 Band Neutrophils % 1 % (0-10) 04/30/18 04:35 Lymphocytes % 10.6 % (20.0-50.0) L 04/28/18 04:30 Monocytes % 8.8 % (2.0-10.0) 04/28/18 04:30 Eosinophils % 3.3 % (0.0-5.0) 04/28/18 04:30 Basophils % 0.6 % (0.0-2.0) 04/28/18 04:30 Neutrophils (Manual) 62 % (40-80) 04/30/18 04:35 Lymphocytes 18 % (20-50) L 04/30/18 04:35 Monocytes 4 % (2-10) 04/30/18 04:35 Eosinophils 15 % (0-5) H 04/30/18 04:35 Basophils 0 % (0-3) 04/26/18 22:03 Platelet Estimate ADEQUATE (NORMAL) 04/26/18 22:03 Platelet Morphology NORMAL (NORMAL) 04/26/18 22:03 RBC Morph Micro Appear NORMAL (NORMAL) 04/26/18 22:03 Sodium 140 mEq/L (136-145) 04/30/18 04:35 Potassium 3.5 mEq/L (3.5-5.1) 04/30/18 04:35 Chloride 112 mEq/L (98-107) H 04/30/18 04:35 Carbon Dioxide 23.4 mEq/L (21.0-31.0) 04/30/18 04:35 Anion Gap 8.1 (7.0-16.0) 04/30/18 04:35 BUN 18 mg/dL (7-25) 04/30/18 04:35 Creatinine 0.6 mg/dL (0.7-1.3) L 04/30/18 04:35 Est GFR ( Amer) TNP 04/30/18 04:35 Est GFR (Non-Af Amer) TNP 04/30/18 04:35 BUN/Creatinine Ratio 30.0 04/30/18 04:35 Glucose 107 mg/dL (70-105) H 04/30/18 04:35 POC Glucose 95 MG/DL (70 - 105) 05/01/18 10:58 Calcium 8.2 mg/dL (8.6-10.3) L 04/30/18 04:35 Total Bilirubin 1.1 mg/dL (0.3-1.0) H 04/27/18 08:37 AST 33 U/L (13-39) 04/27/18 08:37 ALT 21 U/L (7-52) 04/27/18 08:37 Alkaline Phosphatase 116 U/L (34-104) H 04/27/18 08:37 Total Protein 6.3 gm/dL (6.0-8.3) 04/27/18 08:37 Albumin 2.9 gm/dL (4.2-5.5) L 04/27/18 08:37 Globulin 3.4 gm/dL 04/27/18 08:37 Albumin/Globulin Ratio 0.9 (1.0-1.8) L 04/27/18 08:37 Urine Source CLEAN C 04/26/18 22:15 Urine Color YELLOW 04/26/18 22:15 Urine Clarity CLOUDY (CLEAR) 04/26/18 22:15 Urine pH 7.5 (4.6 - 8.0) 04/26/18 22:15 Ur Specific [place] 1.005 (1.005-1.030) 04/26/18 22:15 Urine Protein 100 mg/dL (NEGATIVE) H 04/26/18 22:15 Urine Glucose (UA) NEGATIVE mg/dL (NEGATIVE) 04/26/18 22:15 Urine Ketones NEGATIVE mg/dL (NEGATIVE) 04/26/18 22:15 Urine Blood LARGE (NEGATIVE) H 04/26/18 22:15 Urine Nitrate POSITIVE (NEGATIVE) H 04/26/18 22:15 Urine Bilirubin NEGATIVE (NEGATIVE) 04/26/18 22:15 Urine Urobilinogen 0.2 E.U./dL (0.2 - 1.0) 04/26/18 22:15 Ur Leukocyte Esterase MODERATE (NEGATIVE) H 04/26/18 22:15 Urine RBC 10-25 /hpf (0-5) H 04/26/18 22:15 Urine WBC 10-25 /hpf (0-5) H 04/26/18 22:15 Ur Epithelial Cells NONE SEEN /lpf (FEW) 04/26/18 22:15 Urine Bacteria MODERATE /hpf (NONE SEEN) H 04/26/18 22:15 Vancomycin Trough 13.6 ug/mL (5-10) H 04/28/18 19:40 - Physical Exam Vitals and I&O: Vital Signs Temp 96.8 F 05/01/18 12:00 Pulse 65 05/01/18 13:45 Resp 13 05/01/18 12:00 BP 109/65 05/01/18 12:00 Pulse Ox 98 05/01/18 13:45 Intake & Output 04/30/18 05/01/18 05/01/18 18:59 06:59 18:59 Intake Total 2653.334 1920 1025 Balance 2653.334 1920 1025 Weight (lbs) 155 lb 9 oz 160 lb Intake: Intake, IV Amount 9497.821 2989 1025 D5-0.9%Ns 1,000 ml @ 100 1000 1000 925 mls/hr IV .Q10H [facility] Rx#: [id number] Piperacillin Sodium/ 343.334 200 100 Tazobact 3.375 gm In Sodium Chloride 0.9% 100 ml @ 100 mls/hr IV Q6HR [facility] Rx#:[id number] Vancomycin HCl 1 gm In 250 Sodium Chloride 0.9% 250 ml @ 165 mls/hr IV Q24H [facility] Rx#:[id number] Tube Feeding 660 720 Other 400 Other: # Voids 4 5 # Bowel Movements 1 2 Stool Characteristics Soft Soft Soft Brown Formed Formed Black Black Black Weight Source Bedscale Bedscale Active Medications: Current Medications Acetaminophen (Tylenol) 650 mg GT Q6HR PRN PRN Reason: Pain or Fever >101 Stop: 06/25/18 23:53 Last Admin: 04/27/18 09:39 Dose: 650 mg Acetaminophen/Hydrocodone Bitart ([place] 5mg/325mg) 1 tab GT Q8H PRN PRN Reason: Pain (Severe) Stop: 06/25/18 23:53 Albuterol Sulfate (Albuterol 2.5mg/3ml Neb Ud) 2.5 mg HHN QIDRT [facility] Stop: 06/26/18 06:59 Last Admin: 05/01/18 11:45 Dose: 2.5 mg Alprazolam (Xanax) 0.5 mg GT Q8HR PRN; Protocol PRN Reason: Anxiety Stop: 06/25/18 23:53 Last Admin: 04/30/18 23:34 Dose: 0.5 mg Artificial Tears (Artificial Tears Ophth Soln) 1 drop EACH EYE TID PRN PRN Reason: Dry Eye Stop: 06/25/18 23:53 Artificial Tears (Lubrifresh Ophth Oint) 1 appl EACH EYE BID [facility] Stop: 06/28/18 16:59 Last Admin: 05/01/18 08:48 Dose: 1 appl Ascorbic Acid (Vitamin C) 500 mg GT DAILY [facility] Stop: 06/26/18 08:59 Last Admin: 05/01/18 08:46 Dose: 500 mg Celecoxib (Celebrex) 200 mg GT DAILY [facility] Stop: 06/27/18 08:59 Last Admin: 05/01/18 08:43 Dose: 200 mg Chlorhexidine Gluconate (Peridex) 15 ml MM 0800,1999 [facility] Stop: 06/26/18 07:59 Last Admin: 05/01/18 08:48 Dose: 15 ml Epoetin Jeramy (Epogen) 4,000 units SUBQ MWF [facility] Stop: 06/28/18 08:59 Last Admin: 05/01/18 08:52 Dose: 4,000 units Ferrous Sulfate (Iron) 330 mg GT Q8HR [facility] Stop: 06/26/18 04:59 Last Admin: 05/01/18 05:00 Dose: 330 mg Fluocinonide (Lidex 0.05%) 1 appl TP BID [facility] Stop: 06/26/18 08:59 Last Admin: 05/01/18 08:48 Dose: 1 appl Guaifenesin (Robitussin) 200 mg PO Q4HR PRN PRN Reason: Cough or Congestion Stop: 06/25/18 23:56 Norepinephrine Bitartrate 4 mg (/ Dextrose) 254 mls @ 0 mls/hr IV TITR PRN; Protocol PRN Reason: To Keep SBP Above 90 Stop: 06/26/18 08:13 Last Titration: 04/28/18 16:00 Dose: 0 mcg/min, 0 mls/hr Dextrose/Sodium Chloride (D5-0.45ns) 1,000 mls @ 40 mls/hr IV .Q24H [facility] Stop: 06/30/18 12:29 Trimethoprim/Sulfamethoxazole (20 ml/ Dextrose) 520 mls @ 348 mls/hr IV Q12HR@ 1000,2200 [facility] Stop: 06/30/18 13:59 Insulin Aspart (Novolog Insulin Sliding Scale) 0 units SUBQ Q6HR [facility]; Protocol Stop: 06/26/18 11:59 Last Admin: 05/01/18 11:14 Dose: Not Given Ipratropium [place] (Atrovent Neb 0.5mg/2.5ml) 0.5 mg HHN QIDRT [facility] Stop: 06/26/18 06:59 Last Admin: 05/01/18 11:45 Dose: 0.5 mg Ketoconazole (Nizoral 2% Cream) 1 appl TP BID [facility] Stop: 06/26/18 08:59 Last Admin: 05/01/18 08:48 Dose: 1 appl Levothyroxine Sodium (Synthroid) 0.025 mg GT QDAC [facility] Stop: 06/26/18 07:29 Last Admin: 05/01/18 06:39 Dose: 0.025 mg Loperamide HCl (Imodium Oral Soln) 2 mg GT Q6HR PRN PRN Reason: Diarrhea Stop: 06/26/18 03:14 Lorazepam (Ativan) 1 mg IV Q4H PRN; Protocol PRN Reason: Seizure Stop: 06/25/18 23:56 Last Admin: 05/01/18 00:55 Dose: 1 mg Midodrine (Proamatine) 5 mg GT TID [facility] Stop: 06/26/18 08:59 Last Admin: 05/01/18 08:46 Dose: 5 mg Nystatin (Nystop) 100 units TP DAILY PRN PRN Reason: Rash Stop: 06/28/18 11:49 Last Admin: 05/01/18 08:48 Dose: 100 units Ondansetron HCl (Zofran) 4 mg IV Q8H PRN PRN Reason: Nausea / Vomiting Stop: 06/25/18 23:56 Pantoprazole Sodium (Protonix) 40 mg GT QDAC [facility] Stop: 06/26/18 07:29 Last Admin: 05/01/18 06:39 Dose: 40 mg Paroxetine HCl (Paxil) 10 mg GT DAILY [facility]; Protocol Stop: 06/26/18 08:59 Last Admin: 05/01/18 08:46 Dose: 10 mg Pyridostigmine [place] (Mestinon) 60 mg GT BID [facility] Stop: 06/26/18 08:59 Last Admin: 05/01/18 08:46 Dose: 60 mg Trimethoprim/Sulfamethoxazole (Bactrim Iv Per Pharmacy) 1 ea MC PRN [facility] Stop: 06/30/18 12:29 General: weak, demented HEENT: NC/AT, PERRLA Neck: Supple, + trach Lungs: ronchi Cardiovascular: without murmur Abdomen: soft, non-tender, non-distended, positive bowel sound Extremities: excoriation Neurological: alert - Procedures Procedures: Procedures Procedure Code Date EGD PLACE GASTROSTOMY TUBE 89377 06/02/16 INSERTION OF FEEDING DEVICE INTO STOMACH, ENDO [id number] 06/02/16 RESPIRATORY VENTILATION, GREATER THAN 96 CONSECUTIVE HOURS [id number] 04/27/18 [facility] MGMT INPAT INIT DAY 16941 06/02/16 [facility] MGMT INPAT SUBQ DAY 32546 06/02/16 Internal Medicine Assmt/Plan - Assessment Assessment: sepsis acute uti hypotension-resolved hypokalemia-improving acute renal insufficiency- r/o dehydration vdrf acute on chronic respiratory failure mild protein calorie malnutrition - Plan Plan: continue ivabx vent support ivf for hydration monitor bp continue current plan of care Nutritional Asmnt/Malnutr-PDOC - Dietary Evaluation Malnutrition Findings (Please click <Entered> for more info): Nutritional Asmnt/Malnutrition Start: 04/27/18 09: 23 Text: Status: Complete Freq: Protocol: Document 04/27/18 09:24 LLUC (Rec: 04/27/18 09:38 LLUC [id number]) Nutritional Asmnt/Malnutrition Patient General Information Nutritional Screening High Risk Consult Diagnosis Sepsis, UTI Pertinent Medical Hx/Surgical Hx G-tube; trach vent dependent - nonverbal per RN notes Hx: Schizo, bipolar, anxiety, dementia, melanoma (malignant) Subjective Information Consult received for Russell Dhaliwal . Patient from [facility]; confused. Patient seen sleeping in ICU. Current Diet Order/ Nutrition Support TF Diabetisource 50 mL/hr continuous Patient / S.O Can't verbalize diet edu Pertinent Medications vit C, D5, FeSO4, Epo, Novolog , Synthroid, zofran, protonix, Pertinent Labs 04/27: Alb 2.9, K+ 2.9, Glu 142 04/26: Alb 3.4, K+ 3.5, Glu 122 Nutritional Hx/Data Height 5 ft 6 in Height (Calculated Centimeters) 167.6 Current Weight (lbs) 154 lb Weight (Calculated Kilograms) 69.9 Weight (Calculated Grams) 21941.2 [place] Body Weight 142 % [place] Body Weight 108 Body Mass Index (BMI) 24.8 Weight Status Approriate GI Symptoms Last BM none indicated Difficult in: Chewing Swallowing Food Allergies unknown Cultural/Ethnic/Cheondoism Belief unknown Usual diet at home TF at SNF Skin Integrity/Comment: Russell 12, multiple skin abrasions to L hand, L foot; reddened scabs to L thigh, RUE , r foot, buttock Estimated Nutritional Goals BEE in Kcals: Using Current wt Calories/Kcals/Kg [id number] Kcals Calculated 1750 Protein: Using Current wt Protein g/k-1.2 Protein Calculated 70-84 Fluid: ml 1750 - 1890 (1ml/kcal) Nutritional Problem 1. Problem Problem Increased protein needs Etiology impaired skin integrity Signs/Symptoms: russell 12, multiple skin abrasions/tears Intervention/Recommendation Comments 1. If medically appropriate, recommend increasing TF rate to Diabetisource 60 mL/hr to provide 1728 Kcals, 86g protein, 1178 mL free water, 100% RDI. Recommend 150 mL free water flushes q 6 hours to provide additional 600 mL fluids for total 1778 mL/day. 2. Recommend adding arginine for wound healing. Expected Outcomes/Goals Expected Outcomes/Goals 1. Pt to meet at least 75% of nutritional needs via nutrition support with minimal residuals 2. Wt stability, improved skin integrity, labs to approach WNL. 3. F/U as high risk in 2-3 days, 04/29-04/30
[2018-05-01] MEDS: SULFAMETHOXAZOLE IV SCH ×2 (14:55→21:54)
[2018-05-01] MEDS: DEXTROSE IV SCH ×2 (14:55→21:54)
[2018-05-01] MEDS: TMP IV SCH ×2 (14:55→21:54)
[2018-05-02] MEDS: INSULIN ASPART SLIDING SCALE 100 UNITS/ML UNIT SUBQ SCH ×4 (00:23→18:18)
--- NOTE | 2018-05-02 03:42 | Progress Notes ---
DATE: 05/01/2018 UROLOGY FOLLOWUP SUBJECTIVE: The patient is in ICU, awaiting [place] evaluation and transfer. He is stabilized, but has ESBL in the urine and Klebsiella in the sputum. PHYSICAL EXAMINATION: GENERAL: On exam, blood pressure 119/51, temperature 98.2, heart rate 68, saturating 98% on the ventilator. ABDOMEN: Soft, nontender. Bladder nondistended. EXTREMITIES: No edema. Urinary incontinence of clear urine. LABORATORY DATA: None was done today with the above-mentioned urine cultures of record. IMPRESSION: Sepsis of unknown origin, maybe the ESBL in the urine, now on antibiotics and improving. Hypotension, now stabilized without any blood pressure support. History of dementia and altered level of consciousness as well as schizophrenia. No major changes. History of ventilator and G-tube dependency, both unchanged. A Daly catheter use in the past, now incontinent and hopefully can be maintained without Daly to avoid ongoing infections since he is emptying his bladder quite well on his own. Past history of myasthenia and melanoma. No longer active. JOB# [id number]
[2018-05-02 05:08] LABS: HEMATOCRIT 26.5 % (41.0-60); HEMOGLOBIN 9.3 gm/dL (12-16); MEAN CELL VOLUME 89.8 fl (80-99); MEAN CORPUSCULAR HEMOGLOBIN 31.4 pg (27.0-31.0); MEAN PLATELET VOLUME 9.9 fl; PLATELET COUNT 144 Th/cmm (150-400); RED BLOOD COUNT 2.95 Mil/cmm (3.80-5.80); RED CELL DISTRIBUTION WIDTH 12.3 % (11.5-20.0); WHITE BLOOD COUNT 10.4 Th/cmm (4.8-10.8)
[2018-05-02] MEDS: Ferrous Sulfate 300 MG/5 ML UDC GT SCH ×3 (05:08→21:39)
[2018-05-02 05:11] LABS: MANUAL DIFF REQUIRED? YES
[2018-05-02 05:19] LABS: ANION GAP 9.8 (7.0-16.0); BUN - UREA NITROGEN 14 mg/dL (7-25); CALCIUM SERUM 8.4 mg/dL (8.6-10.3); CARBON DIOXIDE 21.4 mEq/L (21.0-31.0); CHLORIDE 113 mEq/L (98-107); CREATININE - SERUM 0.7 mg/dL (0.7-1.3); GLUCOSE 84 mg/dL (70-105); POTASSIUM SERUM 4.2 mEq/L (3.5-5.1); SODIUM SERUM 140 mEq/L (136-145)
[2018-05-02 05:42] LABS: BAND NEUTROPHILE 1 % (0-10); EOSINOPHIL 8 % (0-5); LYMPHOCYTE 17 % (20-50); MONOCYTE 1 % (2-10); NEUTROPHILS 73 % (40-80); TOTAL CELLS COUNTED 100
[2018-05-02 05:43] LABS: PLATELET ESTIMATE ADEQUATE (NORMAL)
[2018-05-02] MEDS: Pantoprazole 40 mg/Packet GT SCH (07:06)
[2018-05-02] MEDS: Levothyroxine 0.025 Mg Tab GT SCH (07:06)
[2018-05-02] MEDS: Ipratropium Neb 0.5 mg/2.5 mL UD HHN SCH ×4 (07:50→18:40)
[2018-05-02] MEDS: Albuterol Nebulizer 2.5mg/3mL HHN SCH ×4 (07:50→18:40)
--- NOTE | 2018-05-02 08:35 | Diagnostic Imaging Report ---
Portable chest x-ray HISTORY: Shortness of breath Compared with the prior exam of 05/01/2018, there remains density in the right lower hemithorax consistent with a pleural effusion. No other changes. IMPRESSION: 1. No change in the cardiopulmonary status with evidence of a small right pleural effusion.
[2018-05-02] MEDS: Chlorhexidine Gluconate 0.12% 15mL Mouthwash MM SCH ×2 (09:24→21:38)
[2018-05-02] MEDS: Artificial Tear Ophth Oint 3.5 Gm Tube EACH EYE SCH ×2 (09:25→17:11)
[2018-05-02] MEDS: Multivitamin w/ Minerals Tab GT SCH (09:40)
[2018-05-02] MEDS: DEXTROSE IV SCH ×2 (10:38→21:39)
[2018-05-02] MEDS: TMP IV SCH ×2 (10:38→21:39)
[2018-05-02] MEDS: SULFAMETHOXAZOLE IV SCH ×2 (10:38→21:39)
--- NOTE | 2018-05-02 12:26 | Internal Medicine Prog Note ---
Internal Medicine Subjective - Subjective Service Date: 05/02/18 Patient seen and examined:: with staff Patient is:: awake, non-verbal, interactive Patient Complaints of:: congestion Per staff patient has:: no adverse event, no episodes of fall, combative, tolerating meds Internal Medicine Objective - Results Result Diagrams: 05/02/18 04:45 05/02/18 04:45 Recent Labs: Laboratory Last Values WBC 10.4 Th/cmm (4.8-10.8) 05/02/18 04:45 RBC 2.95 Mil/cmm (3.80-5.80) L 05/02/18 04:45 Hgb 9.3 gm/dL (12-16) L 05/02/18 04:45 Hct 26.5 % (41.0-60) L 05/02/18 04:45 MCV 89.8 fl (80-99) 05/02/18 04:45 MCH 31.4 pg (27.0-31.0) H 05/02/18 04:45 MCHC Differential 35.0 pg (28.0-36.0) 05/02/18 04:45 RDW 12.3 % (11.5-20.0) 05/02/18 04:45 Plt Count 144 Th/cmm (150-400) L 05/02/18 04:45 MPV 9.9 fl 05/02/18 04:45 Neutrophils % 76.7 % (40.0-80.0) 04/28/18 04:30 Band Neutrophils % 1 % (0-10) 05/02/18 04:45 Lymphocytes % 10.6 % (20.0-50.0) L 04/28/18 04:30 Monocytes % 8.8 % (2.0-10.0) 04/28/18 04:30 Eosinophils % 3.3 % (0.0-5.0) 04/28/18 04:30 Basophils % 0.6 % (0.0-2.0) 04/28/18 04:30 Neutrophils (Manual) 73 % (40-80) 05/02/18 04:45 Lymphocytes 17 % (20-50) L 05/02/18 04:45 Monocytes 1 % (2-10) L 05/02/18 04:45 Eosinophils 8 % (0-5) H 05/02/18 04:45 Basophils 0 % (0-3) 04/26/18 22:03 Platelet Estimate ADEQUATE (NORMAL) 05/02/18 04:45 Platelet Morphology NORMAL (NORMAL) 04/26/18 22:03 RBC Morph Micro Appear NORMAL (NORMAL) 04/26/18 22:03 Sodium 140 mEq/L (136-145) 05/02/18 04:45 Potassium 4.2 mEq/L (3.5-5.1) 05/02/18 04:45 Chloride 113 mEq/L (98-107) H 05/02/18 04:45 Carbon Dioxide 21.4 mEq/L (21.0-31.0) 05/02/18 04:45 Anion Gap 9.8 (7.0-16.0) 05/02/18 04:45 BUN 14 mg/dL (7-25) 05/02/18 04:45 Creatinine 0.7 mg/dL (0.7-1.3) 05/02/18 04:45 Est GFR ( Amer) TNP 05/02/18 04:45 Est GFR (Non-Af Amer) TNP 05/02/18 04:45 BUN/Creatinine Ratio 20.0 05/02/18 04:45 Glucose 84 mg/dL (70-105) 05/02/18 04:45 POC Glucose 93 MG/DL (70 - 105) 05/02/18 07:08 Calcium 8.4 mg/dL (8.6-10.3) L 05/02/18 04:45 Total Bilirubin 1.1 mg/dL (0.3-1.0) H 04/27/18 08:37 AST 33 U/L (13-39) 04/27/18 08:37 ALT 21 U/L (7-52) 04/27/18 08:37 Alkaline Phosphatase 116 U/L (34-104) H 04/27/18 08:37 B-Natriuretic Peptide 725.0 pg/mL (5.0-100.0) H 05/02/18 04:45 Total Protein 6.3 gm/dL (6.0-8.3) 04/27/18 08:37 Albumin 2.9 gm/dL (4.2-5.5) L 04/27/18 08:37 Globulin 3.4 gm/dL 04/27/18 08:37 Albumin/Globulin Ratio 0.9 (1.0-1.8) L 04/27/18 08:37 Urine Source CLEAN C 04/26/18 22:15 Urine Color YELLOW 04/26/18 22:15 Urine Clarity CLOUDY (CLEAR) 04/26/18 22:15 Urine pH 7.5 (4.6 - 8.0) 04/26/18 22:15 Ur Specific [place] 1.005 (1.005-1.030) 04/26/18 22:15 Urine Protein 100 mg/dL (NEGATIVE) H 04/26/18 22:15 Urine Glucose (UA) NEGATIVE mg/dL (NEGATIVE) 04/26/18 22:15 Urine Ketones NEGATIVE mg/dL (NEGATIVE) 04/26/18 22:15 Urine Blood LARGE (NEGATIVE) H 04/26/18 22:15 Urine Nitrate POSITIVE (NEGATIVE) H 04/26/18 22:15 Urine Bilirubin NEGATIVE (NEGATIVE) 04/26/18 22:15 Urine Urobilinogen 0.2 E.U./dL (0.2 - 1.0) 04/26/18 22:15 Ur Leukocyte Esterase MODERATE (NEGATIVE) H 04/26/18 22:15 Urine RBC 10-25 /hpf (0-5) H 04/26/18 22:15 Urine WBC 10-25 /hpf (0-5) H 04/26/18 22:15 Ur Epithelial Cells NONE SEEN /lpf (FEW) 04/26/18 22:15 Urine Bacteria MODERATE /hpf (NONE SEEN) H 04/26/18 22:15 Vancomycin Trough 13.6 ug/mL (5-10) H 04/28/18 19:40 - Physical Exam Vitals and I&O: Vital Signs Temp 98.5 F 05/02/18 08:00 Pulse 86 05/02/18 12:23 Resp 19 05/02/18 10:00 BP 151/78 05/02/18 10:00 Pulse Ox 97 05/02/18 12:23 Intake & Output 05/01/18 05/02/18 05/02/18 18:59 06:59 18:59 Intake Total 2765 520 984 Balance 2765 520 984 Weight (lbs) 160 lb 2 oz 160 lb Intake: Intake, IV Amount 1545 520 D5-0.9%Ns 1,000 ml @ 100 925 mls/hr IV .Q10H [facility] Rx#: [id number] Piperacillin Sodium/ 100 Tazobact 3.375 gm In Sodium Chloride 0.9% 100 ml @ 100 mls/hr IV Q6HR [facility] Rx#:[id number] Sulfamethoxazole/TMP 20 520 520 ml In Dextrose 5% 500 ml @ 348 mls/hr IV Q12HR@ 1000,2200 [facility] Rx#: [id number] Tube Feeding 720 744 Other 500 240 Other: # Voids 7 6 # Bowel Movements 1 2 Stool Characteristics Soft Soft Formed Liquid Black Green Weight Source Bedscale Bedscale Active Medications: Current Medications Acetaminophen (Tylenol) 650 mg GT Q6HR PRN PRN Reason: Pain or Fever >101 Stop: 06/25/18 23:53 Last Admin: 04/27/18 09:39 Dose: 650 mg Acetaminophen/Hydrocodone Bitart ([place] 5mg/325mg) 1 tab GT Q8H PRN PRN Reason: Pain (Severe) Stop: 06/25/18 23:53 Albuterol Sulfate (Albuterol 2.5mg/3ml Neb Ud) 2.5 mg HHN QIDRT [facility] Stop: 06/26/18 06:59 Last Admin: 05/02/18 12:23 Dose: 2.5 mg Alprazolam (Xanax) 0.5 mg GT Q8HR PRN; Protocol PRN Reason: Anxiety Stop: 06/25/18 23:53 Last Admin: 04/30/18 23:34 Dose: 0.5 mg Artificial Tears (Artificial Tears Ophth Soln) 1 drop EACH EYE TID PRN PRN Reason: Dry Eye Stop: 06/25/18 23:53 Artificial Tears (Lubrifresh Ophth Oint) 1 appl EACH EYE BID [facility] Stop: 06/28/18 16:59 Last Admin: 05/02/18 09:25 Dose: 1 appl Ascorbic Acid (Vitamin C) 500 mg GT DAILY [facility] Stop: 06/26/18 08:59 Last Admin: 05/02/18 09:24 Dose: 500 mg Celecoxib (Celebrex) 200 mg GT DAILY [facility] Stop: 06/27/18 08:59 Last Admin: 05/02/18 09:24 Dose: 200 mg Chlorhexidine Gluconate (Peridex) 15 ml MM 0800,1999 [facility] Stop: 06/26/18 07:59 Last Admin: 05/02/18 09:24 Dose: 15 ml Epoetin Jeramy (Epogen) 4,000 units SUBQ MWF [facility] Stop: 06/28/18 08:59 Last Admin: 05/01/18 08:52 Dose: 4,000 units Ferrous Sulfate (Iron) 330 mg GT Q8HR [facility] Stop: 06/26/18 04:59 Last Admin: 05/02/18 05:08 Dose: 330 mg Fluocinonide (Lidex 0.05%) 1 appl TP BID [facility] Stop: 06/26/18 08:59 Last Admin: 05/02/18 09:25 Dose: 1 appl Guaifenesin (Robitussin) 200 mg PO Q4HR PRN PRN Reason: Cough or Congestion Stop: 06/25/18 23:56 Norepinephrine Bitartrate 4 mg (/ Dextrose) 254 mls @ 0 mls/hr IV TITR PRN; Protocol PRN Reason: To Keep SBP Above 90 Stop: 06/26/18 08:13 Last Titration: 04/28/18 16:00 Dose: 0 mcg/min, 0 mls/hr Dextrose/Sodium Chloride (D5-0.45ns) 1,000 mls @ 40 mls/hr IV .Q24H [facility] Stop: 06/30/18 12:29 Last Admin: 05/01/18 14:10 Dose: 40 mls/hr Trimethoprim/Sulfamethoxazole (20 ml/ Dextrose) 520 mls @ 348 mls/hr IV Q12HR@ 1000,2200 [facility] Stop: 06/30/18 13:59 Last Admin: 05/02/18 10:38 Dose: 348 mls/hr Insulin Aspart (Novolog Insulin Sliding Scale) 0 units SUBQ Q6HR [facility]; Protocol Stop: 06/26/18 11:59 Last Admin: 05/02/18 07:48 Dose: Not Given Ipratropium [place] (Atrovent Neb 0.5mg/2.5ml) 0.5 mg HHN QIDRT [facility] Stop: 06/26/18 06:59 Last Admin: 05/02/18 12:23 Dose: 0.5 mg Ketoconazole (Nizoral 2% Cream) 1 appl TP BID [facility] Stop: 06/26/18 08:59 Last Admin: 05/02/18 09:25 Dose: 1 appl Levothyroxine Sodium (Synthroid) 0.025 mg GT QDAC [facility] Stop: 06/26/18 07:29 Last Admin: 05/02/18 07:06 Dose: 0.025 mg Loperamide HCl (Imodium Oral Soln) 2 mg GT Q6HR PRN PRN Reason: Diarrhea Stop: 06/26/18 03:14 Lorazepam (Ativan) 1 mg IV Q4H PRN; Protocol PRN Reason: Seizure Stop: 06/25/18 23:56 Last Admin: 05/01/18 23:21 Dose: 1 mg Midodrine (Proamatine) 5 mg GT TID [facility] Stop: 06/26/18 08:59 Last Admin: 05/02/18 09:23 Dose: 5 mg Nystatin (Nystop) 100 units TP DAILY PRN PRN Reason: Rash Stop: 06/28/18 11:49 Last Admin: 05/01/18 16:11 Dose: 100 units Ondansetron HCl (Zofran) 4 mg IV Q8H PRN PRN Reason: Nausea / Vomiting Stop: 06/25/18 23:56 Pantoprazole Sodium (Protonix) 40 mg GT QDAC [facility] Stop: 06/26/18 07:29 Last Admin: 05/02/18 07:06 Dose: 40 mg Paroxetine HCl (Paxil) 10 mg GT DAILY [facility]; Protocol Stop: 06/26/18 08:59 Last Admin: 05/02/18 09:23 Dose: 10 mg Pyridostigmine [place] (Mestinon) 60 mg GT BID [facility] Stop: 06/26/18 08:59 Last Admin: 05/02/18 09:23 Dose: 60 mg Trimethoprim/Sulfamethoxazole (Bactrim Iv Per Pharmacy) 1 ea MC PRN [facility] Stop: 06/30/18 12:29 General: weak, demented HEENT: NC/AT, PERRLA Neck: Supple, + trach Lungs: ronchi Cardiovascular: without murmur Abdomen: soft, non-tender, non-distended, positive bowel sound Extremities: excoriation Neurological: alert - Procedures Procedures: Procedures Procedure Code Date EGD PLACE GASTROSTOMY TUBE 11936 06/02/16 INSERTION OF FEEDING DEVICE INTO STOMACH, ENDO [id number] 06/02/16 RESPIRATORY VENTILATION, GREATER THAN 96 CONSECUTIVE HOURS [id number] 04/27/18 VENT MGMT INPAT INIT DAY 06/02/16 VENT MGMT INPAT SUBQ DAY 06/02/16 Internal Medicine Assmt/Plan - Assessment Assessment: sepsis acute uti hypotension-resolved hypokalemia-improving acute renal insufficiency- r/o dehydration vdrf acute on chronic respiratory failure mild protein calorie malnutrition - Plan Plan: continue ivabx vent support ivf for hydration monitor bp continue current plan of care Nutritional Asmnt/Malnutr-PDOC - Dietary Evaluation Malnutrition Findings (Please click <Entered> for more info): Nutritional Asmnt/Malnutrition Start: 04/27/18 09: 23 Text: Status: Complete Freq: Protocol: Document 04/27/18 09:24 [facility] (Rec: 04/27/18 09:38 [facility] [id number]) Nutritional Asmnt/Malnutrition Patient General Information Nutritional Screening High Risk Consult Diagnosis Sepsis, UTI Pertinent Medical Hx/Surgical Hx G-tube; trach vent dependent - nonverbal per RN notes Hx: Schizo, bipolar, anxiety, dementia, melanoma (malignant) Subjective Information Consult received for Russell Dhaliwal . Patient from [facility]; confused. Patient seen sleeping in ICU. Current Diet Order/ Nutrition Support TF Diabetisource 50 mL/hr continuous Patient / S.O Can't verbalize diet edu Pertinent Medications vit C, D5, FeSO4, Epo, Novolog , Synthroid, zofran, protonix, Pertinent Labs 04/27: Alb 2.9, K+ 2.9, Glu 142 04/26: Alb 3.4, K+ 3.5, Glu 122 Nutritional Hx/Data Height 5 ft 6 in Height (Calculated Centimeters) 167.6 Current Weight (lbs) 154 lb Weight (Calculated Kilograms) 69.9 Weight (Calculated Grams) 14734.2 [place] Body Weight 142 % [place] Body Weight 108 Body Mass Index (BMI) 24.8 Weight Status Approriate GI Symptoms Last BM none indicated Difficult in: Chewing Swallowing Food Allergies unknown Cultural/Ethnic/[employer] Belief unknown Usual diet at home TF at SNF Skin Integrity/Comment: Russell Dhaliwal, multiple skin abrasions to L hand, L foot; reddened scabs to L thigh, RUE , r foot, buttock Estimated Nutritional Goals BEE in Kcals: Using Current wt Calories/Kcals/Kg [id number] Kcals Calculated 1750 Protein: Using Current wt Protein g/k-1.2 Protein Calculated 70-84 Fluid: ml 1750 - 1890 (1ml/kcal) Nutritional Problem 1. Problem Problem Increased protein needs Etiology impaired skin integrity Signs/Symptoms: russell 12, multiple skin abrasions/tears Intervention/Recommendation Comments 1. If medically appropriate, recommend increasing TF rate to Diabetisource 60 mL/hr to provide 1728 Kcals, 86g protein, 1178 mL free water, 100% RDI. Recommend 150 mL free water flushes q 6 hours to provide additional 600 mL fluids for total 1778 mL/day. 2. Recommend adding arginine for wound healing. Expected Outcomes/Goals Expected Outcomes/Goals 1. Pt to meet at least 75% of nutritional needs via nutrition support with minimal residuals 2. Wt stability, improved skin integrity, labs to approach WNL. 3. F/U as high risk in 2-3 days, 04/29-04/30
[2018-05-02] MEDS: D5-0.45NS 1,000 ML IV SCH (18:02)
[2018-05-02] MEDS: Ampicillin Sodium/Sulbactam 3 GM in Sodium Chloride 0.9% 100 ML IV SCH ×2 (18:06→23:02)
--- NOTE | 2018-05-03 00:15 | Progress Notes ---
DATE: 05/02/2018 SUBJECTIVE: The patient is stable except his BNP apparently went up for no reason. He is urinating, incontinent, but clear. No bladder pain. PHYSICAL EXAMINATION: VITAL SIGNS: Temperature 99.2, heart rate 72, blood pressure 120/75. ABDOMEN: Soft. G-tube feeds are tolerated quite well. No tenderness or masses. EXTREMITIES: No edema. LUNGS: No rales or rhonchi. Occasional coarse breath sounds from the ventilator. LABORATORY DATA: White count 10.4, hemoglobin 9.3, BUN 14, creatinine 0.7. BNP has gone up to 725. IMPRESSION: Urinary incontinence, stable. No need for [place] at this time. Carryout prevention of decubiti. G-tube and ventilator status no change, stable. History of schizophrenia. No current problems. Sepsis, resolved, source could be ESBL in the urine or Klebsiella in the sputum, was never well documented. The patient is awaiting evaluation by a long-term care facility. JOB# [id number]
[2018-05-03] MEDS: INSULIN ASPART SLIDING SCALE 100 UNITS/ML UNIT SUBQ SCH ×5 (06:00→23:50)
[2018-05-03] MEDS: Ferrous Sulfate 300 MG/5 ML UDC GT SCH ×3 (06:09→21:17)
[2018-05-03] MEDS: Ampicillin Sodium/Sulbactam 3 GM in Sodium Chloride 0.9% 100 ML IV SCH ×3 (06:09→18:13)
[2018-05-03] MEDS: Ipratropium Neb 0.5 mg/2.5 mL UD HHN SCH ×3 (06:47→18:38)
[2018-05-03] MEDS: Albuterol Nebulizer 2.5mg/3mL HHN SCH ×3 (06:47→18:37)
[2018-05-03] MEDS: Multivitamin w/ Minerals Tab GT SCH (09:39)
[2018-05-03] MEDS: Levothyroxine 0.025 Mg Tab GT SCH (09:40)
[2018-05-03] MEDS: Chlorhexidine Gluconate 0.12% 15mL Mouthwash MM SCH ×2 (09:40→21:16)
[2018-05-03] MEDS: Pantoprazole 40 mg/Packet GT SCH (09:41)
[2018-05-03] MEDS: NYSTATIN 100000 UNITS/GM POWD TP PRN (09:42)
[2018-05-03] MEDS: Artificial Tear Ophth Oint 3.5 Gm Tube EACH EYE SCH ×2 (09:44→16:58)
[2018-05-03] MEDS: DEXTROSE IV SCH ×2 (11:44→23:14)
[2018-05-03] MEDS: TMP IV SCH ×2 (11:44→23:14)
[2018-05-03] MEDS: SULFAMETHOXAZOLE IV SCH ×2 (11:44→23:14)
[2018-05-03] MEDS: Epoetin Alfa 20000 Units/mL Vial SUBQ SCH (13:17)
--- NOTE | 2018-05-03 15:35 | Internal Medicine Prog Note ---
Internal Medicine Subjective - Subjective Service Date: 05/03/18 Patient seen and examined:: with staff Patient is:: awake, non-verbal, interactive Patient Complaints of:: congestion Per staff patient has:: no adverse event, no episodes of fall, combative, tolerating meds Internal Medicine Objective - Results Result Diagrams: 05/02/18 04:45 05/02/18 04:45 Recent Labs: Laboratory Last Values WBC 10.4 Th/cmm (4.8-10.8) 05/02/18 04:45 RBC 2.95 Mil/cmm (3.80-5.80) L 05/02/18 04:45 Hgb 9.3 gm/dL (12-16) L 05/02/18 04:45 Hct 26.5 % (41.0-60) L 05/02/18 04:45 MCV 89.8 fl (80-99) 05/02/18 04:45 MCH 31.4 pg (27.0-31.0) H 05/02/18 04:45 MCHC Differential 35.0 pg (28.0-36.0) 05/02/18 04:45 RDW 12.3 % (11.5-20.0) 05/02/18 04:45 Plt Count 144 Th/cmm (150-400) L 05/02/18 04:45 MPV 9.9 fl 05/02/18 04:45 Neutrophils % 76.7 % (40.0-80.0) 04/28/18 04:30 Band Neutrophils % 1 % (0-10) 05/02/18 04:45 Lymphocytes % 10.6 % (20.0-50.0) L 04/28/18 04:30 Monocytes % 8.8 % (2.0-10.0) 04/28/18 04:30 Eosinophils % 3.3 % (0.0-5.0) 04/28/18 04:30 Basophils % 0.6 % (0.0-2.0) 04/28/18 04:30 Neutrophils (Manual) 73 % (40-80) 05/02/18 04:45 Lymphocytes 17 % (20-50) L 05/02/18 04:45 Monocytes 1 % (2-10) L 05/02/18 04:45 Eosinophils 8 % (0-5) H 05/02/18 04:45 Basophils 0 % (0-3) 04/26/18 22:03 Platelet Estimate ADEQUATE (NORMAL) 05/02/18 04:45 Platelet Morphology NORMAL (NORMAL) 04/26/18 22:03 RBC Morph Micro Appear NORMAL (NORMAL) 04/26/18 22:03 Sodium 140 mEq/L (136-145) 05/02/18 04:45 Potassium 4.2 mEq/L (3.5-5.1) 05/02/18 04:45 Chloride 113 mEq/L (98-107) H 05/02/18 04:45 Carbon Dioxide 21.4 mEq/L (21.0-31.0) 05/02/18 04:45 Anion Gap 9.8 (7.0-16.0) 05/02/18 04:45 BUN 14 mg/dL (7-25) 05/02/18 04:45 Creatinine 0.7 mg/dL (0.7-1.3) 05/02/18 04:45 Est GFR ( Amer) TNP 05/02/18 04:45 Est GFR (Non-Af Amer) TNP 05/02/18 04:45 BUN/Creatinine Ratio 20.0 05/02/18 04:45 Glucose 84 mg/dL (70-105) 05/02/18 04:45 POC Glucose 135 MG/DL (70 - 105) H 05/03/18 13:01 Calcium 8.4 mg/dL (8.6-10.3) L 05/02/18 04:45 Total Bilirubin 1.1 mg/dL (0.3-1.0) H 04/27/18 08:37 AST 33 U/L (13-39) 04/27/18 08:37 ALT 21 U/L (7-52) 04/27/18 08:37 Alkaline Phosphatase 116 U/L (34-104) H 04/27/18 08:37 B-Natriuretic Peptide 725.0 pg/mL (5.0-100.0) H 05/02/18 04:45 Total Protein 6.3 gm/dL (6.0-8.3) 04/27/18 08:37 Albumin 2.9 gm/dL (4.2-5.5) L 04/27/18 08:37 Globulin 3.4 gm/dL 04/27/18 08:37 Albumin/Globulin Ratio 0.9 (1.0-1.8) L 04/27/18 08:37 Urine Source CLEAN C 04/26/18 22:15 Urine Color YELLOW 04/26/18 22:15 Urine Clarity CLOUDY (CLEAR) 04/26/18 22:15 Urine pH 7.5 (4.6 - 8.0) 04/26/18 22:15 Ur Specific [place] 1.005 (1.005-1.030) 04/26/18 22:15 Urine Protein 100 mg/dL (NEGATIVE) H 04/26/18 22:15 Urine Glucose (UA) NEGATIVE mg/dL (NEGATIVE) 04/26/18 22:15 Urine Ketones NEGATIVE mg/dL (NEGATIVE) 04/26/18 22:15 Urine Blood LARGE (NEGATIVE) H 04/26/18 22:15 Urine Nitrate POSITIVE (NEGATIVE) H 04/26/18 22:15 Urine Bilirubin NEGATIVE (NEGATIVE) 04/26/18 22:15 Urine Urobilinogen 0.2 E.U./dL (0.2 - 1.0) 04/26/18 22:15 Ur Leukocyte Esterase MODERATE (NEGATIVE) H 04/26/18 22:15 Urine RBC 10-25 /hpf (0-5) H 04/26/18 22:15 Urine WBC 10-25 /hpf (0-5) H 04/26/18 22:15 Ur Epithelial Cells NONE SEEN /lpf (FEW) 04/26/18 22:15 Urine Bacteria MODERATE /hpf (NONE SEEN) H 04/26/18 22:15 Vancomycin Trough 13.6 ug/mL (5-10) H 04/28/18 19:40 - Physical Exam Vitals and I&O: Vital Signs Temp 97.7 F 05/03/18 12:00 Pulse 60 05/03/18 15:00 Resp 12 05/03/18 15:00 BP 152/82 05/03/18 15:00 Pulse Ox 99 05/03/18 15:00 Intake & Output 05/02/18 05/03/18 05/03/18 18:59 06:59 18:59 Intake Total 3524 720 720 Balance 3524 720 720 Weight (lbs) 178 lb 6.4 oz Intake: Intake, IV Amount 1520 720 720 Ampicillin Sodium/ 200 200 Sulbactam 3 gm In Sodium Chloride 0.9% 100 ml @ 100 mls/hr IV Q6HR [facility] Rx #:[id number] D5-0.45NS 1,000 ml @ 40 1000 mls/hr IV .Q24H [facility] Rx#: [id number] Sulfamethoxazole/TMP 20 520 520 520 ml In Dextrose 5% 500 ml @ 348 mls/hr IV Q12HR@ 1000,2200 [facility] Rx#: [id number] Tube Feeding 1464 Other 540 Other: # Voids 6 # Bowel Movements 1 Weight Source Bedscale Active Medications: Current Medications Acetaminophen (Tylenol) 650 mg GT Q6HR PRN PRN Reason: Pain or Fever >101 Stop: 06/25/18 23:53 Last Admin: 04/27/18 09:39 Dose: 650 mg Acetaminophen/Hydrocodone Bitart ([place] 5mg/325mg) 1 tab GT Q8H PRN PRN Reason: Pain (Severe) Stop: 06/25/18 23:53 Albuterol Sulfate (Albuterol 2.5mg/3ml Neb Ud) 2.5 mg HHN QIDRT [facility] Stop: 06/26/18 06:59 Last Admin: 05/03/18 11:02 Dose: 2.5 mg Alprazolam (Xanax) 0.5 mg GT Q6HR PRN; Protocol PRN Reason: Anxiety Stop: 06/25/18 23:53 Last Admin: 05/03/18 13:17 Dose: 0.5 mg Artificial Tears (Artificial Tears Ophth Soln) 1 drop EACH EYE TID PRN PRN Reason: Dry Eye Stop: 06/25/18 23:53 Artificial Tears (Lubrifresh Ophth Oint) 1 appl EACH EYE BID [facility] Stop: 06/28/18 16:59 Last Admin: 05/03/18 09:44 Dose: 1 appl Ascorbic Acid (Vitamin C) 500 mg GT DAILY [facility] Stop: 06/26/18 08:59 Last Admin: 05/03/18 09:39 Dose: 500 mg Celecoxib (Celebrex) 200 mg GT DAILY [facility] Stop: 06/27/18 08:59 Last Admin: 05/03/18 09:39 Dose: 200 mg Chlorhexidine Gluconate (Peridex) 15 ml MM 0800,2000 [facility] Stop: 06/26/18 07:59 Last Admin: 05/03/18 09:40 Dose: 15 ml Epoetin [place] (Epogen) 4,000 units SUBQ MWF [facility] Stop: 06/28/18 08:59 Last Admin: 05/03/18 13:17 Dose: 4,000 units Ferrous Sulfate (Iron) 330 mg GT Q8HR [facility] Stop: 06/26/18 04:59 Last Admin: 05/03/18 13:57 Dose: 330 mg Fluocinonide (Lidex 0.05%) 1 appl TP BID [facility] Stop: 06/26/18 08:59 Last Admin: 05/03/18 09:42 Dose: 1 appl Guaifenesin (Robitussin) 200 mg PO Q4HR PRN PRN Reason: Cough or Congestion Stop: 06/25/18 23:56 Norepinephrine Bitartrate 4 mg (/ Dextrose) 254 mls @ 0 mls/hr IV TITR PRN; Protocol PRN Reason: To Keep SBP Above 90 Stop: 06/26/18 08:13 Last Titration: 04/28/18 16:00 Dose: 0 mcg/min, 0 mls/hr Dextrose/Sodium Chloride (D5-0.45ns) 1,000 mls @ 40 mls/hr IV .Q24H [facility] Stop: 06/30/18 12:29 Last Admin: 05/02/18 18:02 Dose: 40 mls/hr Trimethoprim/Sulfamethoxazole (20 ml/ Dextrose) 520 mls @ 348 mls/hr IV Q12HR@ 1000,2200 [facility] Stop: 06/30/18 13:59 Last Infusion: 05/03/18 13:58 Dose: Infused Ampicillin Sodium/Sulbactam (Sodium 3 gm/ Sodium Chloride) 100 mls @ 100 mls/ hr IV Q6HR [facility] Stop: 05/15/18 17:59 Last Infusion: 05/03/18 15:32 Dose: Infused Insulin Aspart (Novolog Insulin Sliding Scale) 0 units SUBQ Q6HR [facility]; Protocol Stop: 06/26/18 11:59 Last Admin: 05/03/18 13:56 Dose: Not Given Ipratropium [place] (Atrovent Neb 0.5mg/2.5ml) 0.5 mg HHN QIDRT [facility] Stop: 06/26/18 06:59 Last Admin: 05/03/18 11:02 Dose: 0.5 mg Ketoconazole (Nizoral 2% Cream) 1 appl TP BID [facility] Stop: 06/26/18 08:59 Last Admin: 05/03/18 09:42 Dose: 1 appl Levothyroxine Sodium (Synthroid) 0.025 mg GT QDAC [facility] Stop: 06/26/18 07:29 Last Admin: 05/03/18 09:40 Dose: 0.025 mg Loperamide HCl (Imodium Oral Soln) 2 mg GT Q6HR PRN PRN Reason: Diarrhea Stop: 06/26/18 03:14 Lorazepam (Ativan) 0.5 mg IVP Q6HR PRN; Protocol PRN Reason: Anxiety AND CAN'T TAKE PO Stop: 07/02/18 12:49 Midodrine (Proamatine) 5 mg GT TID [facility] Stop: 06/26/18 08:59 Last Admin: 05/03/18 13:16 Dose: 5 mg Nystatin (Nystop) 100 units TP DAILY PRN PRN Reason: Rash Stop: 06/28/18 11:49 Last Admin: 05/03/18 09:42 Dose: 100 units Ondansetron HCl (Zofran) 4 mg IV Q8H PRN PRN Reason: Nausea / Vomiting Stop: 06/25/18 23:56 Pantoprazole Sodium (Protonix) 40 mg GT QDAC [facility] Stop: 06/26/18 07:29 Last Admin: 05/03/18 09:41 Dose: 40 mg Paroxetine HCl (Paxil) 10 mg GT DAILY [facility]; Protocol Stop: 06/26/18 08:59 Last Admin: 05/03/18 09:39 Dose: 10 mg Pyridostigmine [place] (Mestinon) 60 mg GT BID [facility] Stop: 06/26/18 08:59 Last Admin: 05/03/18 09:39 Dose: 60 mg Trimethoprim/Sulfamethoxazole (Bactrim Iv Per Pharmacy) 1 ea MC PRN [facility] Stop: 06/30/18 12:29 General: weak, demented HEENT: NC/AT, PERRLA Neck: Supple, + trach Lungs: ronchi Cardiovascular: without murmur Abdomen: soft, non-tender, non-distended, positive bowel sound Extremities: excoriation Neurological: alert - Procedures Procedures: Procedures Procedure Code Date EGD PLACE GASTROSTOMY TUBE 28557 06/02/16 INSERTION OF FEEDING DEVICE INTO STOMACH, ENDO [id number] 06/02/16 RESPIRATORY VENTILATION, GREATER THAN 96 CONSECUTIVE HOURS [id number] 04/27/18 VENT MGMT INPAT INIT DAY 06/02/16 VENT MGMT INPAT SUBQ DAY 06/02/16 Internal Medicine Assmt/Plan - Assessment Assessment: sepsis acute uti with esbl e.coli with proteus mirabilis sputum culture positive for klebsiella pneumoniae hypotension-resolved hypokalemia-improving acute renal insufficiency- r/o dehydration vdrf acute on chronic respiratory failure mild protein calorie malnutrition - Plan Plan: continue ivabx vent support ivf for hydration monitor bp continue current plan of care Nutritional Asmnt/Malnutr-PDOC - Dietary Evaluation Malnutrition Findings (Please click <Entered> for more info): Nutritional Asmnt/Malnutrition Start: 04/27/18 09: 23 Text: Status: Complete Freq: Protocol: Document 04/27/18 09:24 LLUC (Rec: 04/27/18 09:38 [id number]) Nutritional Asmnt/Malnutrition Patient General Information Nutritional Screening High Risk Consult Diagnosis Sepsis, UTI Pertinent Medical Hx/Surgical Hx G-tube; trach vent dependent - nonverbal per RN notes Hx: Schizo, bipolar, anxiety, dementia, melanoma (malignant) Subjective Information Consult received for Russell Dhaliwal . Patient from [facility]; confused. Patient seen sleeping in ICU. Current Diet Order/ Nutrition Support TF Diabetisource 50 mL/hr continuous Patient / S.O Can't verbalize diet edu Pertinent Medications vit C, D5, FeSO4, Epo, Novolog , Synthroid, zofran, protonix, Pertinent Labs 04/27: Alb 2.9, K+ 2.9, Glu 142 04/26: Alb 3.4, K+ 3.5, Glu 122 Nutritional Hx/Data Height 5 ft 6 in Height (Calculated Centimeters) 167.6 Current Weight (lbs) 154 lb Weight (Calculated Kilograms) 69.9 Weight (Calculated Grams) 35954.2 [place] Body Weight 142 % [place] Body Weight 108 Body Mass Index (BMI) 24.8 Weight Status Approriate GI Symptoms Last BM none indicated Difficult in: Chewing Swallowing Food Allergies unknown Cultural/Ethnic/[employer] Belief unknown Usual diet at home TF at SNF Skin Integrity/Comment: Rusesll Madhuri, multiple skin abrasions to L hand, L foot; reddened scabs to L thigh, RUE , r foot, buttock Estimated Nutritional Goals BEE in Kcals: Using Current wt Calories/Kcals/Kg [id number] Kcals Calculated 1750 Protein: Using Current wt Protein g/k-1.2 Protein Calculated 70-84 Fluid: ml 1750 - 1890 (1ml/kcal) Nutritional Problem 1. Problem Problem Increased protein needs Etiology impaired skin integrity Signs/Symptoms: russell 12, multiple skin abrasions/tears Intervention/Recommendation Comments 1. If medically appropriate, recommend increasing TF rate to Diabetisource 60 mL/hr to provide 1728 Kcals, 86g protein, 1178 mL free water, 100% RDI. Recommend 150 mL free water flushes q 6 hours to provide additional 600 mL fluids for total 1778 mL/day. 2. Recommend adding arginine for wound healing. Expected Outcomes/Goals Expected Outcomes/Goals 1. Pt to meet at least 75% of nutritional needs via nutrition support with minimal residuals 2. Wt stability, improved skin integrity, labs to approach WNL. 3. F/U as high risk in 2-3 days, 04/29-04/30
[2018-05-03] MEDS: Hydrocodone/APAP 5mg/325mg Tab GT PRN (21:30)
[2018-05-04] MEDS: Ampicillin Sodium/Sulbactam 3 GM in Sodium Chloride 0.9% 100 ML IV SCH ×5 (00:21→23:36)
[2018-05-04 04:47] LABS: % BASOPHILS 0.3 % (0.0-2.0); % LYMPHOCYTES 21.2 % (20.0-50.0); % MONOCYTES 5.7 % (2.0-10.0); % NEUTROPHILS 59.8 % (40.0-80.0); EOSINOPHILE ABSOLUTE 1.4 Th/cmm (0.1-0.4); HEMATOCRIT 30.4 % (41.0-60); HEMOGLOBIN 10.4 gm/dL (12-16); LYMPHOCYTE ABSOLUTE 2.3 Th/cmm (1.5-3.0); MEAN CELL VOLUME 91.1 fl (80-99); MEAN CORPUSCULAR HEMOGLOBIN 31.1 pg (27.0-31.0); MEAN CORPUSCULAR HGB CONC 34.1 pg (28.0-36.0); MEAN PLATELET VOLUME 10.3 fl; MONOCYTE ABSOLUTE 0.6 Th/cmm (0.3-1.0); NEUTROPHILE ABSOLUTE 6.5 Th/cmm (1.8-8.0); PLATELET COUNT 155 Th/cmm (150-400); RED BLOOD COUNT 3.34 Mil/cmm (3.80-5.80); RED CELL DISTRIBUTION WIDTH 12.8 % (11.5-20.0); WHITE BLOOD COUNT 10.8 Th/cmm (4.8-10.8)
[2018-05-04 04:57] LABS: ANION GAP 13.2 (7.0-16.0); BUN - UREA NITROGEN 15 mg/dL (7-25); CALCIUM SERUM 9.1 mg/dL (8.6-10.3); CARBON DIOXIDE 18.5 mEq/L (21.0-31.0); CHLORIDE 110 mEq/L (98-107); CREATININE - SERUM 0.8 mg/dL (0.7-1.3); GLUCOSE 99 mg/dL (70-105); POTASSIUM SERUM 4.7 mEq/L (3.5-5.1); SODIUM SERUM 137 mEq/L (136-145)
[2018-05-04] MEDS: Ferrous Sulfate 300 MG/5 ML UDC GT SCH ×3 (05:29→20:49)
[2018-05-04] MEDS: D5-0.45NS 1,000 ML IV SCH ×2 (05:39→17:47)
[2018-05-04] MEDS: Albuterol Nebulizer 2.5mg/3mL HHN SCH ×4 (06:52→19:15)
[2018-05-04] MEDS: Ipratropium Neb 0.5 mg/2.5 mL UD HHN SCH ×4 (06:52→19:15)
[2018-05-04] MEDS: INSULIN ASPART SLIDING SCALE 100 UNITS/ML UNIT SUBQ SCH ×3 (07:47→17:45)
[2018-05-04] MEDS: Levothyroxine 0.025 Mg Tab GT SCH (08:24)
[2018-05-04] MEDS: Pantoprazole 40 mg/Packet GT SCH (08:25)
--- NOTE | 2018-05-04 08:54 | Diagnostic Imaging Report ---
CHEST X-RAY: AP view INDICATION: Shortness of breath COMPARISON: 05/02/2018 FINDINGS: Tracheostomy tube is stable. Low lung volumes are noted. Mild increased CHF is seen bilateral small effusions and infiltrates. Mild cardiomegaly is noted. IMPRESSION: Mild increase in CHF. Underlying pneumonia cannot be excluded.
[2018-05-04] MEDS: Multivitamin w/ Minerals Tab GT SCH (10:44)
[2018-05-04] MEDS: SULFAMETHOXAZOLE IV SCH ×2 (10:47→21:51)
[2018-05-04] MEDS: TMP IV SCH ×2 (10:47→21:51)
[2018-05-04] MEDS: DEXTROSE IV SCH ×2 (10:47→21:51)
[2018-05-04] MEDS: Artificial Tear Ophth Oint 3.5 Gm Tube EACH EYE SCH ×2 (10:51→17:48)
[2018-05-04] MEDS: Chlorhexidine Gluconate 0.12% 15mL Mouthwash MM SCH ×2 (10:52→20:48)
--- NOTE | 2018-05-04 14:25 | Internal Medicine Prog Note ---
Internal Medicine Subjective - Subjective Patient seen and examined:: with staff, chart reviewed Patient is:: awake, non-verbal, interactive Patient Complaints of:: congestion Per staff patient has:: no adverse event, no episodes of fall, combative, tolerating meds Internal Medicine Objective - Results Result Diagrams: 05/04/18 04:15 05/04/18 04:15 Recent Labs: Laboratory Last Values WBC 10.8 Th/cmm (4.8-10.8) 05/04/18 04:15 RBC 3.34 Mil/cmm (3.80-5.80) L 05/04/18 04:15 Hgb 10.4 gm/dL (12-16) L 05/04/18 04:15 Hct 30.4 % (41.0-60) L 05/04/18 04:15 MCV 91.1 fl (80-99) 05/04/18 04:15 MCH 31.1 pg (27.0-31.0) H 05/04/18 04:15 MCHC Differential 34.1 pg (28.0-36.0) 05/04/18 04:15 RDW 12.8 % (11.5-20.0) 05/04/18 04:15 Plt Count 155 Th/cmm (150-400) 05/04/18 04:15 MPV 10.3 fl 05/04/18 04:15 Neutrophils % 59.8 % (40.0-80.0) 05/04/18 04:15 Band Neutrophils % 1 % (0-10) 05/02/18 04:45 Lymphocytes % 21.2 % (20.0-50.0) 05/04/18 04:15 Monocytes % 5.7 % (2.0-10.0) 05/04/18 04:15 Eosinophils % 13.0 % (0.0-5.0) H 05/04/18 04:15 Basophils % 0.3 % (0.0-2.0) 05/04/18 04:15 Neutrophils (Manual) 73 % (40-80) 05/02/18 04:45 Lymphocytes 17 % (20-50) L 05/02/18 04:45 Monocytes 1 % (2-10) L 05/02/18 04:45 Eosinophils 8 % (0-5) H 05/02/18 04:45 Basophils 0 % (0-3) 04/26/18 22:03 Platelet Estimate ADEQUATE (NORMAL) 05/02/18 04:45 Platelet Morphology NORMAL (NORMAL) 04/26/18 22:03 RBC Morph Micro Appear NORMAL (NORMAL) 04/26/18 22:03 Sodium 137 mEq/L (136-145) 05/04/18 04:15 Potassium 4.7 mEq/L (3.5-5.1) 05/04/18 04:15 Chloride 110 mEq/L (98-107) H 05/04/18 04:15 Carbon Dioxide 18.5 mEq/L (21.0-31.0) L 05/04/18 04:15 Anion Gap 13.2 (7.0-16.0) 05/04/18 04:15 BUN 15 mg/dL (7-25) 05/04/18 04:15 Creatinine 0.8 mg/dL (0.7-1.3) 05/04/18 04:15 Est GFR ( Amer) TNP 05/04/18 04:15 Est GFR (Non-Af Amer) TNP 05/04/18 04:15 BUN/Creatinine Ratio 18.8 05/04/18 04:15 Glucose 99 mg/dL (70-105) 05/04/18 04:15 POC Glucose 113 MG/DL (70 - 105) H 05/04/18 12:34 Calcium 9.1 mg/dL (8.6-10.3) 05/04/18 04:15 Total Bilirubin 1.1 mg/dL (0.3-1.0) H 04/27/18 08:37 AST 33 U/L (13-39) 04/27/18 08:37 ALT 21 U/L (7-52) 04/27/18 08:37 Alkaline Phosphatase 116 U/L (34-104) H 04/27/18 08:37 Ammonia 60 umol/L (16-53) H 05/04/18 04:15 B-Natriuretic Peptide 740.0 pg/mL (5.0-100.0) H 05/04/18 04:15 Total Protein 6.3 gm/dL (6.0-8.3) 04/27/18 08:37 Albumin 2.9 gm/dL (4.2-5.5) L 04/27/18 08:37 Globulin 3.4 gm/dL 04/27/18 08:37 Albumin/Globulin Ratio 0.9 (1.0-1.8) L 04/27/18 08:37 Urine Source CLEAN C 04/26/18 22:15 Urine Color YELLOW 04/26/18 22:15 Urine Clarity CLOUDY (CLEAR) 04/26/18 22:15 Urine pH 7.5 (4.6 - 8.0) 04/26/18 22:15 Ur Specific [place] 1.005 (1.005-1.030) 04/26/18 22:15 Urine Protein 100 mg/dL (NEGATIVE) H 04/26/18 22:15 Urine Glucose (UA) NEGATIVE mg/dL (NEGATIVE) 04/26/18 22:15 Urine Ketones NEGATIVE mg/dL (NEGATIVE) 04/26/18 22:15 Urine Blood LARGE (NEGATIVE) H 04/26/18 22:15 Urine Nitrate POSITIVE (NEGATIVE) H 04/26/18 22:15 Urine Bilirubin NEGATIVE (NEGATIVE) 04/26/18 22:15 Urine Urobilinogen 0.2 E.U./dL (0.2 - 1.0) 04/26/18 22:15 Ur Leukocyte Esterase MODERATE (NEGATIVE) H 04/26/18 22:15 Urine RBC 10-25 /hpf (0-5) H 04/26/18 22:15 Urine WBC 10-25 /hpf (0-5) H 04/26/18 22:15 Ur Epithelial Cells NONE SEEN /lpf (FEW) 04/26/18 22:15 Urine Bacteria MODERATE /hpf (NONE SEEN) H 04/26/18 22:15 Vancomycin Trough 13.6 ug/mL (5-10) H 04/28/18 19:40 - Physical Exam Vitals and I&O: Vital Signs Temp 98.1 F 05/04/18 08:00 Pulse 62 05/04/18 12:50 Resp 24 05/04/18 11:00 BP 131/63 05/04/18 11:00 Pulse Ox 100 05/04/18 12:50 Intake & Output 05/03/18 05/04/18 05/04/18 18:59 06:59 18:59 Intake Total 1740 2610 Output Total 0 Balance 1740 2610 Weight (lbs) 76.657 kg 76.657 kg Intake: Intake, IV Amount 720 1820 Ampicillin Sodium/ 200 300 Sulbactam 3 gm In Sodium Chloride 0.9% 100 ml @ 100 mls/hr IV Q6HR [facility] Rx #:[id number] D5-0.45NS 1,000 ml @ 40 1000 mls/hr IV .Q24H [facility] Rx#: [id number] Sulfamethoxazole/TMP 20 520 520 ml In Dextrose 5% 500 ml @ 348 mls/hr IV Q12HR@ 1000,2200 [facility] Rx#: [id number] Tube Feeding 720 600 Other 300 190 Output: Stool 0 Other: # Voids 6 5 # Bowel Movements 0 Stool Characteristics Brown Weight Source Bedscale Bedscale Active Medications: Current Medications Acetaminophen (Tylenol) 650 mg GT Q6HR PRN PRN Reason: Pain or Fever >101 Stop: 06/25/18 23:53 Last Admin: 04/27/18 09:39 Dose: 650 mg Acetaminophen/Hydrocodone Bitart ([place] 5mg/325mg) 1 tab GT Q8H PRN PRN Reason: Pain (Severe) Stop: 06/25/18 23:53 Last Admin: 05/03/18 21:30 Dose: 1 tab Albuterol Sulfate (Albuterol 2.5mg/3ml Neb Ud) 2.[address] [facility] Stop: 06/26/18 06:59 Last Admin: 05/04/18 10:37 Dose: 2.5 mg Alprazolam (Xanax) 0.5 mg GT Q6HR PRN; Protocol PRN Reason: Anxiety Stop: 06/25/18 23:53 Last Admin: 05/03/18 21:30 Dose: 0.5 mg Artificial Tears (Artificial Tears Ophth Soln) 1 drop EACH EYE TID PRN PRN Reason: Dry Eye Stop: 06/25/18 23:53 Artificial Tears (Lubrifresh Ophth Oint) [address]YE [address] [facility] Stop: 06/28/18 16:59 Last Admin: 05/04/18 10:51 Dose: 1 appl Ascorbic Acid (Vitamin C) [address] [facility] Stop: 06/26/18 08:59 Last Admin: 05/04/18 10:44 Dose: 500 mg Celecoxib (Celebrex) [address] [facility] Stop: 06/27/18 08:59 Last Admin: 05/04/18 10:45 Dose: 200 mg Chlorhexidine Gluconate (Peridex) 15 ml MM 0800,2000 [facility] Stop: 06/26/18 07:59 Last Admin: 05/04/18 10:52 Dose: 15 ml Epoetin [place]amy (Epogen) 4,000 units SUBQ MWF [facility] Stop: 06/28/18 08:59 Last Admin: 05/03/18 13:17 Dose: 4,000 units Ferrous Sulfate (Iron) 330 mg GT Q8HR [facility] Stop: 06/26/18 04:59 Last Admin: 05/04/18 12:35 Dose: 330 mg Fluocinonide (Lidex 0.05%) [address] [facility] Stop: 06/26/18 08:59 Last Admin: 05/04/18 10:52 Dose: 1 appl Guaifenesin (Robitussin) 200 mg PO Q4HR PRN PRN Reason: Cough or Congestion Stop: 06/25/18 23:56 Norepinephrine Bitartrate 4 mg (/ Dextrose) 254 mls @ 0 mls/hr IV TITR PRN; Protocol PRN Reason: To Keep SBP Above 90 Stop: 06/26/18 08:13 Last Titration: 04/28/18 16:00 Dose: 0 mcg/min, 0 mls/hr Trimethoprim/Sulfamethoxazole (20 ml/ Dextrose) 520 mls @ 348 mls/hr IV Q12HR@ 1000,2200 [facility] Stop: 06/30/18 13:59 Last Admin: 05/04/18 10:47 Dose: 348 mls/hr Ampicillin Sodium/Sulbactam (Sodium 3 gm/ Sodium Chloride) 100 mls @ 100 mls/ hr IV Q6HR [facility] Stop: 05/15/18 17:59 Last Admin: 05/04/18 12:36 Dose: 100 mls/hr Dextrose/Sodium Chloride (D5-0.45ns) 1,000 mls @ 10 mls/hr IV .Q24H [facility] Stop: 07/03/18 14:29 Insulin Aspart (Novolog Insulin Sliding Scale) [address] [facility]; Protocol Stop: 06/26/18 11:59 Last Admin: 05/04/18 12:37 Dose: Not Given Ipratropium [place] (Atrovent Neb 0.5mg/2.5ml) 0.5 mg HHN QIDRT [facility] Stop: 06/26/18 06:59 Last Admin: 05/04/18 10:37 Dose: 0.5 mg Ketoconazole (Nizoral 2% Cream) 1 appl TP BID [facility] Stop: 06/26/18 08:59 Last Admin: 05/04/18 10:51 Dose: 1 appl Levothyroxine Sodium (Synthroid) 0.025 mg GT QDAC [facility] Stop: 06/26/18 07:29 Last Admin: 05/04/18 08:24 Dose: 0.025 mg Loperamide HCl (Imodium Oral Soln) 2 mg GT Q6HR PRN PRN Reason: Diarrhea Stop: 06/26/18 03:14 Lorazepam (Ativan) 0.5 mg IVP Q6HR PRN; Protocol PRN Reason: Anxiety AND CAN'T TAKE PO Stop: 07/02/18 12:49 Last Admin: 05/04/18 04:29 Dose: 0.5 mg Midodrine (Proamatine) 5 mg GT TID [facility] Stop: 06/26/18 08:59 Last Admin: 05/04/18 14:24 Dose: 5 mg Nystatin (Nystop) 100 units TP DAILY PRN PRN Reason: Rash Stop: 06/28/18 11:49 Last Admin: 05/03/18 09:42 Dose: 100 units Ondansetron HCl (Zofran) 4 mg IV Q8H PRN PRN Reason: Nausea / Vomiting Stop: 06/25/18 23:56 Pantoprazole Sodium (Protonix) [address] [facility] Stop: 06/26/18 07:29 Last Admin: 05/04/18 08:25 Dose: 40 mg Paroxetine HCl (Paxil) 10 mg GT DAILY [facility]; Protocol Stop: 06/26/18 08:59 Last Admin: 05/04/18 10:44 Dose: 10 mg Pyridostigmine [place] (Mestinon) [address] [facility] Stop: 06/26/18 08:59 Last Admin: 05/04/18 10:44 Dose: 60 mg Trimethoprim/Sulfamethoxazole (Bactrim Iv Per Pharmacy) [address] [facility] Stop: 06/30/18 12:29 General: weak, demented HEENT: NC/AT, PERRLA Neck: Supple, + trach Lungs: ronchi Cardiovascular: without murmur Abdomen: soft, non-tender, non-distended, positive bowel sound Extremities: excoriation, contracture Neurological: alert - Procedures Procedures: Procedures Procedure Code Date EGD PLACE GASTROSTOMY TUBE 88853 06/02/16 INSERTION OF FEEDING DEVICE INTO STOMACH, ENDO [id number] 06/02/16 RESPIRATORY VENTILATION, GREATER THAN 96 CONSECUTIVE HOURS [id number] 04/27/18 VENT MGMT INPAT INIT DAY 06/02/16 VENT MGMT INPAT SUBQ DAY 06/02/16 Internal Medicine Assmt/Plan - Assessment Assessment: Assessment Assessment: sepsis acute uti hypotension-resolved hypokalemia-improving acute renal insufficiency- r/o dehydration vdrf acute on chronic respiratory failure mild protein calorie malnutrition - Plan Plan: will add nystatin powder continue ivabx vent support ivf for hydration monitor bp continue current plan of care - Plan Plan: cpm Nutritional Asmnt/Malnutr-PDOC - Dietary Evaluation Malnutrition Findings (Please click <Entered> for more info): Nutritional Asmnt/Malnutrition Start: 04/27/18 09: 23 Text: Status: Complete Freq: Protocol: Document 04/27/18 09:24 LLUC (Rec: 04/27/18 09:38 LLUC [id number]) Nutritional Asmnt/Malnutrition Patient General Information Nutritional Screening High Risk Consult Diagnosis Sepsis, UTI Pertinent Medical Hx/Surgical Hx G-tube; 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 Patient from [facility]; confused. Patient seen sleeping in ICU. Current Diet Order/ Nutrition Support TF Diabetisource 50 mL/hr continuous Patient / S.O Can't verbalize diet edu Pertinent Medications vit C, D5, FeSO4, Epo, Novolog , Synthroid, zofran, protonix, Pertinent Labs 04/27: Alb 2.9, K+ 2.9, Glu 142 04/26: Alb 3.4, K+ 3.5, Glu 122 Nutritional Hx/Data Height 1.68 m Height (Calculated Centimeters) 167.6 Current Weight (lbs) 69.853 kg Weight (Calculated Kilograms) 69.9 Weight (Calculated Grams) 52118.2 [place] Body Weight 142 % [place] Body Weight 108 Body Mass Index (BMI) 24.8 Weight Status Approriate GI Symptoms Last BM none indicated Difficult in: Chewing Swallowing Food Allergies unknown Cultural/Ethnic/Judaism Belief unknown Usual diet at home TF at SNF Skin Integrity/Comment: Russell 12, multiple skin abrasions to L hand, L foot; reddened scabs to L thigh, RUE , r foot, buttock Estimated Nutritional Goals BEE in Kcals: Using Current wt Calories/Kcals/Kg [id number] Kcals Calculated 1750 Protein: Using Current wt Protein g/k-1.2 Protein Calculated 70-84 Fluid: ml 1750 - 1890 (1ml/kcal) Nutritional Problem 1. Problem Problem Increased protein needs Etiology impaired skin integrity Signs/Symptoms: russell 12, multiple skin abrasions/tears Intervention/Recommendation Comments 1. If medically appropriate, recommend increasing TF rate to Diabetisource 60 mL/hr to provide 1728 Kcals, 86g protein, 1178 mL free water, 100% RDI. Recommend 150 mL free water flushes q 6 hours to provide additional 600 mL fluids for total 1778 mL/day. 2. Recommend adding arginine for wound healing. Expected Outcomes/Goals Expected Outcomes/Goals 1. Pt to meet at least 75% of nutritional needs via nutrition support with minimal residuals 2. Wt stability, improved skin integrity, labs to approach WNL. 3. F/U as high risk in 2-3 days, 04/29-04/30
[2018-05-04] MEDS: Potassium Chloride Elixir 20 mEq /15 mL UDC GT SCH (17:44)
[2018-05-05] MEDS: Ferrous Sulfate 300 MG/5 ML UDC GT SCH ×3 (05:00→20:52)
[2018-05-05] MEDS: INSULIN ASPART SLIDING SCALE 100 UNITS/ML UNIT SUBQ SCH ×5 (06:00→23:52)
[2018-05-05] MEDS: Ampicillin Sodium/Sulbactam 3 GM in Sodium Chloride 0.9% 100 ML IV SCH ×4 (06:17→23:51)
[2018-05-05] MEDS: Albuterol Nebulizer 2.5mg/3mL HHN SCH ×4 (07:02→19:17)
[2018-05-05] MEDS: Ipratropium Neb 0.5 mg/2.5 mL UD HHN SCH ×4 (07:02→19:17)
[2018-05-05] MEDS: Pantoprazole 40 mg/Packet GT SCH (07:23)
[2018-05-05] MEDS: Levothyroxine 0.025 Mg Tab GT SCH (07:23)
[2018-05-05] MEDS: Potassium Chloride Elixir 20 mEq /15 mL UDC GT SCH (08:50)
[2018-05-05] MEDS: Artificial Tear Ophth Oint 3.5 Gm Tube EACH EYE SCH ×2 (08:53→17:24)
[2018-05-05] MEDS: Chlorhexidine Gluconate 0.12% 15mL Mouthwash MM SCH ×2 (08:53→20:52)
[2018-05-05] MEDS: Multivitamin w/ Minerals Tab GT SCH (08:54)
[2018-05-05] MEDS: SULFAMETHOXAZOLE IV SCH ×2 (10:47→21:55)
[2018-05-05] MEDS: DEXTROSE IV SCH ×2 (10:47→21:55)
[2018-05-05] MEDS: TMP IV SCH ×2 (10:47→21:55)
--- NOTE | 2018-05-05 11:47 | Internal Medicine Prog Note ---
Internal Medicine Subjective - Subjective Patient seen and examined:: with staff, chart reviewed Patient is:: awake, non-verbal, interactive, in bed, congested Patient Complaints of:: congestion Per staff patient has:: no adverse event, no episodes of fall, combative, tolerating meds Internal Medicine Objective - Results Result Diagrams: 05/04/18 04:15 05/04/18 04:15 Recent Labs: Laboratory Last Values WBC 10.8 Th/cmm (4.8-10.8) 05/04/18 04:15 RBC 3.34 Mil/cmm (3.80-5.80) L 05/04/18 04:15 Hgb 10.4 gm/dL (12-16) L 05/04/18 04:15 Hct 30.4 % (41.0-60) L 05/04/18 04:15 MCV 91.1 fl (80-99) 05/04/18 04:15 MCH 31.1 pg (27.0-31.0) H 05/04/18 04:15 MCHC Differential 34.1 pg (28.0-36.0) 05/04/18 04:15 RDW 12.8 % (11.5-20.0) 05/04/18 04:15 Plt Count 155 Th/cmm (150-400) 05/04/18 04:15 MPV 10.3 fl 05/04/18 04:15 Neutrophils % 59.8 % (40.0-80.0) 05/04/18 04:15 Band Neutrophils % 1 % (0-10) 05/02/18 04:45 Lymphocytes % 21.2 % (20.0-50.0) 05/04/18 04:15 Monocytes % 5.7 % (2.0-10.0) 05/04/18 04:15 Eosinophils % 13.0 % (0.0-5.0) H 05/04/18 04:15 Basophils % 0.3 % (0.0-2.0) 05/04/18 04:15 Neutrophils (Manual) 73 % (40-80) 05/02/18 04:45 Lymphocytes 17 % (20-50) L 05/02/18 04:45 Monocytes 1 % (2-10) L 05/02/18 04:45 Eosinophils 8 % (0-5) H 05/02/18 04:45 Basophils 0 % (0-3) 04/26/18 22:03 Platelet Estimate ADEQUATE (NORMAL) 05/02/18 04:45 Platelet Morphology NORMAL (NORMAL) 04/26/18 22:03 RBC Morph Micro Appear NORMAL (NORMAL) 04/26/18 22:03 Sodium 137 mEq/L (136-145) 05/04/18 04:15 Potassium 4.7 mEq/L (3.5-5.1) 05/04/18 04:15 Chloride 110 mEq/L (98-107) H 05/04/18 04:15 Carbon Dioxide 18.5 mEq/L (21.0-31.0) L 05/04/18 04:15 Anion Gap 13.2 (7.0-16.0) 05/04/18 04:15 BUN 15 mg/dL (7-25) 05/04/18 04:15 Creatinine 0.8 mg/dL (0.7-1.3) 05/04/18 04:15 Est GFR ( Amer) TNP 05/04/18 04:15 Est GFR (Non-Af Amer) TNP 05/04/18 04:15 BUN/Creatinine Ratio 18.8 05/04/18 04:15 Glucose 99 mg/dL (70-105) 05/04/18 04:15 POC Glucose 74 MG/DL (70 - 105) 05/05/18 06:16 Calcium 9.1 mg/dL (8.6-10.3) 05/04/18 04:15 Total Bilirubin 1.1 mg/dL (0.3-1.0) H 04/27/18 08:37 AST 33 U/L (13-39) 04/27/18 08:37 ALT 21 U/L (7-52) 04/27/18 08:37 Alkaline Phosphatase 116 U/L (34-104) H 04/27/18 08:37 Ammonia 60 umol/L (16-53) H 05/04/18 04:15 B-Natriuretic Peptide 740.0 pg/mL (5.0-100.0) H 05/04/18 04:15 Total Protein 6.3 gm/dL (6.0-8.3) 04/27/18 08:37 Albumin 2.9 gm/dL (4.2-5.5) L 04/27/18 08:37 Globulin 3.4 gm/dL 04/27/18 08:37 Albumin/Globulin Ratio 0.9 (1.0-1.8) L 04/27/18 08:37 Urine Source CLEAN C 04/26/18 22:15 Urine Color YELLOW 04/26/18 22:15 Urine Clarity CLOUDY (CLEAR) 04/26/18 22:15 Urine pH 7.5 (4.6 - 8.0) 04/26/18 22:15 Ur Specific [place] 1.005 (1.005-1.030) 04/26/18 22:15 Urine Protein 100 mg/dL (NEGATIVE) H 04/26/18 22:15 Urine Glucose (UA) NEGATIVE mg/dL (NEGATIVE) 04/26/18 22:15 Urine Ketones NEGATIVE mg/dL (NEGATIVE) 04/26/18 22:15 Urine Blood LARGE (NEGATIVE) H 04/26/18 22:15 Urine Nitrate POSITIVE (NEGATIVE) H 04/26/18 22:15 Urine Bilirubin NEGATIVE (NEGATIVE) 04/26/18 22:15 Urine Urobilinogen 0.2 E.U./dL (0.2 - 1.0) 04/26/18 22:15 Ur Leukocyte Esterase MODERATE (NEGATIVE) H 04/26/18 22:15 Urine RBC 10-25 /hpf (0-5) H 04/26/18 22:15 Urine WBC 10-25 /hpf (0-5) H 04/26/18 22:15 Ur Epithelial Cells NONE SEEN /lpf (FEW) 04/26/18 22:15 Urine Bacteria MODERATE /hpf (NONE SEEN) H 04/26/18 22:15 Vancomycin Trough 13.6 ug/mL (5-10) H 04/28/18 19:40 - Physical Exam Vitals and I&O: Vital Signs Temp 97.8 F 05/05/18 08:00 Pulse 55 05/05/18 11:08 Resp 14 05/05/18 09:00 BP 108/42 05/05/18 09:00 Pulse Ox 98 05/05/18 11:08 Intake & Output 05/04/18 05/05/18 05/05/18 18:59 06:59 18:59 Intake Total 720 2282.167 100 Balance 720 2282.167 100 Weight (lbs) 74.843 kg Intake: Intake, IV Amount 720 742.167 100 Ampicillin Sodium/ 200 100 100 Sulbactam 3 gm In Sodium Chloride 0.9% 100 ml @ 100 mls/hr IV Q6HR [facility] Rx #:[id number] D5-0.45NS 1,000 ml @ 10 122.167 mls/hr IV .Q24H [facility] Rx#: [id number] Sulfamethoxazole/TMP 20 520 520 ml In Dextrose 5% 500 ml @ 348 mls/hr IV Q12HR@ 1000,2200 [facility] Rx#: [id number] Tube Feeding 1440 Other 100 Other: # Voids 6 # Bowel Movements 2 Stool Characteristics Brown Black Black Green Green Weight Source Bedscale Active Medications: Current Medications Acetaminophen (Tylenol) 650 mg GT Q6HR PRN PRN Reason: Pain or Fever >101 Stop: 06/25/18 23:53 Last Admin: 04/27/18 09:39 Dose: 650 mg Acetaminophen/Hydrocodone Bitart ([place] 5mg/325mg) 1 tab GT Q8H PRN PRN Reason: Pain (Severe) Stop: 06/25/18 23:53 Last Admin: 05/03/18 21:30 Dose: 1 tab Albuterol Sulfate (Albuterol 2.5mg/3ml Neb Ud) 2.5 mg HHN QIDRT [facility] Stop: 06/26/18 06:59 Last Admin: 05/05/18 11:07 Dose: 2.5 mg Alprazolam (Xanax) 0.5 mg GT Q6HR PRN; Protocol PRN Reason: Anxiety Stop: 06/25/18 23:53 Last Admin: 05/05/18 02:11 Dose: 0.5 mg Artificial Tears (Artificial Tears Ophth Soln) 1 drop EACH EYE TID PRN PRN Reason: Dry Eye Stop: 06/25/18 23:53 Artificial Tears (Lubrifresh Ophth Oint) 1 appl EACH EYE BID [facility] Stop: 06/28/18 16:59 Last Admin: 05/05/18 08:53 Dose: 1 appl Ascorbic Acid (Vitamin C) 500 mg GT DAILY [facility] Stop: 06/26/18 08:59 Last Admin: 05/05/18 08:52 Dose: 500 mg Celecoxib (Celebrex) 200 mg GT DAILY [facility] Stop: 06/27/18 08:59 Last Admin: 05/04/18 10:45 Dose: 200 mg Chlorhexidine Gluconate (Peridex) 15 ml MM 0800,1999 [facility] Stop: 06/26/18 07:59 Last Admin: 05/05/18 08:53 Dose: 15 ml Epoetin Jeramy (Epogen) 4,000 units SUBQ MWF [facility] Stop: 06/28/18 08:59 Last Admin: 05/03/18 13:17 Dose: 4,000 units Ferrous Sulfate (Iron) 330 mg GT Q8HR [facility] Stop: 06/26/18 04:59 Last Admin: 05/05/18 05:00 Dose: 330 mg Fluocinonide (Lidex 0.05%) 1 appl TP BID [facility] Stop: 06/26/18 08:59 Last Admin: 05/05/18 08:53 Dose: 1 appl Furosemide (Lasix) 20 mg IVP BID [facility] Stop: 07/03/18 16:59 Last Admin: 05/05/18 08:52 Dose: 20 mg Guaifenesin (Robitussin) 200 mg PO Q4HR PRN PRN Reason: Cough or Congestion Stop: 06/25/18 23:56 Norepinephrine Bitartrate 4 mg (/ Dextrose) 254 mls @ 0 mls/hr IV TITR PRN; Protocol PRN Reason: To Keep SBP Above 90 Stop: 06/26/18 08:13 Last Titration: 04/28/18 16:00 Dose: 0 mcg/min, 0 mls/hr Trimethoprim/Sulfamethoxazole (20 ml/ Dextrose) 520 mls @ 348 mls/hr IV Q12HR@ 1000,2200 [facility] Stop: 06/30/18 13:59 Last Admin: 05/05/18 10:47 Dose: 348 mls/hr Ampicillin Sodium/Sulbactam (Sodium 3 gm/ Sodium Chloride) 100 mls @ 100 mls/ hr IV Q6HR [facility] Stop: 05/15/18 17:59 Last Infusion: 05/05/18 07:17 Dose: Infused Dextrose/Sodium Chloride (D5-0.45ns) 1,000 mls @ 10 mls/hr IV .Q24H [facility] Stop: 07/03/18 14:29 Last Infusion: 05/05/18 06:00 Dose: 10 mls/hr Insulin Aspart (Novolog Insulin Sliding Scale) 0 units SUBQ Q6HR [facility]; Protocol Stop: 06/26/18 11:59 Last Admin: 05/05/18 06:00 Dose: Not Given Ipratropium [place] (Atrovent Neb 0.5mg/2.5ml) 0.5 mg HHN QIDRT [facility] Stop: 06/26/18 06:59 Last Admin: 05/05/18 11:08 Dose: 0.5 mg Ketoconazole (Nizoral 2% Cream) 1 appl TP BID [facility] Stop: 06/26/18 08:59 Last Admin: 05/05/18 08:53 Dose: 1 appl Levothyroxine Sodium (Synthroid) 0.025 mg GT QDAC [facility] Stop: 06/26/18 07:29 Last Admin: 05/05/18 07:23 Dose: 0.025 mg Loperamide HCl (Imodium Oral Soln) 2 mg GT Q6HR PRN PRN Reason: Diarrhea Stop: 06/26/18 03:14 Lorazepam (Ativan) 0.5 mg IVP Q6HR PRN; Protocol PRN Reason: Anxiety AND CAN'T TAKE PO Stop: 07/02/18 12:49 Last Admin: 05/04/18 04:29 Dose: 0.5 mg Midodrine (Proamatine) 5 mg GT TID [facility] Stop: 06/26/18 08:59 Last Admin: 05/05/18 08:52 Dose: 5 mg Nystatin (Nystop) 100 units TP DAILY PRN PRN Reason: Rash Stop: 06/28/18 11:49 Last Admin: 05/03/18 09:42 Dose: 100 units Ondansetron HCl (Zofran) 4 mg IV Q8H PRN PRN Reason: Nausea / Vomiting Stop: 06/25/18 23:56 Pantoprazole Sodium (Protonix) 40 mg GT QDAC [facility] Stop: 06/26/18 07:29 Last Admin: 05/05/18 07:23 Dose: 40 mg Paroxetine HCl (Paxil) 10 mg GT DAILY [facility]; Protocol Stop: 06/26/18 08:59 Last Admin: 05/05/18 08:51 Dose: 10 mg Potassium Chloride (Potassium Chloride Elixir) 20 meq GT DAILY [facility] Stop: 07/03/18 15:29 Last Admin: 05/05/18 08:50 Dose: 20 meq Pyridostigmine [place] (Mestinon) 60 mg GT BID [facility] Stop: 06/26/18 08:59 Last Admin: 05/05/18 08:51 Dose: 60 mg Trimethoprim/Sulfamethoxazole (Bactrim Iv Per Pharmacy) 1 ea MC PRN [facility] Stop: 06/30/18 12:29 General: weak, demented HEENT: NC/AT, PERRLA Neck: Supple, + trach Lungs: ronchi Cardiovascular: RRR, Normal S1, Normal S2, without murmur Abdomen: soft, non-tender, non-distended, positive bowel sound Extremities: excoriation, contracture Neurological: alert - Procedures Procedures: Procedures Procedure Code Date EGD PLACE GASTROSTOMY TUBE 05310 06/02/16 INSERTION OF FEEDING DEVICE INTO STOMACH, ENDO [id number] 06/02/16 RESPIRATORY VENTILATION, GREATER THAN 96 CONSECUTIVE HOURS [id number] 04/27/18 VENT MGMT INPAT INIT DAY 06/02/16 VENT MGMT INPAT SUBQ DAY 06/02/16 Internal Medicine Assmt/Plan - Assessment Assessment: Assessment Assessment: sepsis acute uti hypotension-resolved hypokalemia-improving acute renal insufficiency- r/o dehydration vdrf acute on chronic respiratory failure mild protein calorie malnutrition - Plan Plan: will add nystatin powder continue ivabx vent support ivf for hydration monitor bp continue current plan of care - Plan Plan: cpm labs noted dw rn Nutritional Asmnt/Malnutr-PDOC - Dietary Evaluation Malnutrition Findings (Please click <Entered> for more info): Nutritional Asmnt/Malnutrition Start: 04/27/18 09: 23 Text: Status: Complete Freq: Protocol: Document 04/27/18 09:24 [facility] (Rec: 04/27/18 09:38 [facility] [id number]) Nutritional Asmnt/Malnutrition Patient General Information Nutritional Screening High Risk Consult Diagnosis Sepsis, UTI Pertinent Medical Hx/Surgical Hx G-tube; 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 Patient from [facility]; confused. Patient seen sleeping in ICU. Current Diet Order/ Nutrition Support TF Diabetisource 50 mL/hr continuous Patient / S.O Can't verbalize diet edu Pertinent Medications vit C, D5, FeSO4, Epo, Novolog , Synthroid, zofran, protonix, Pertinent Labs 04/27: Alb 2.9, K+ 2.9, Glu 142 04/26: Alb 3.4, K+ 3.5, Glu 122 Nutritional Hx/Data Height 1.68 m Height (Calculated Centimeters) 167.6 Current Weight (lbs) 69.853 kg Weight (Calculated Kilograms) 69.9 Weight (Calculated Grams) 75486.2 Gould Body Weight 142 % Gould Body Weight 108 Body Mass Index (BMI) 24.8 Weight Status Approriate GI Symptoms Last BM none indicated Difficult in: Chewing Swallowing Food Allergies unknown Cultural/Ethnic/Muslim Belief unknown Usual diet at home TF at SNF Skin Integrity/Comment: Russell 12, multiple skin abrasions to L hand, L foot; reddened scabs to L thigh, RUE , r foot, buttock Estimated Nutritional Goals BEE in Kcals: Using Current wt Calories/Kcals/Kg [id number] Kcals Calculated 1750 Protein: Using Current wt Protein g/k-1.2 Protein Calculated 70-84 Fluid: ml 1750 - 1890 (1ml/kcal) Nutritional Problem 1. Problem Problem Increased protein needs Etiology impaired skin integrity Signs/Symptoms: russell 12, multiple skin abrasions/tears Intervention/Recommendation Comments 1. If medically appropriate, recommend increasing TF rate to Diabetisource 60 mL/hr to provide 1728 Kcals, 86g protein, 1178 mL free water, 100% RDI. Recommend 150 mL free water flushes q 6 hours to provide additional 600 mL fluids for total 1778 mL/day. 2. Recommend adding arginine for wound healing. Expected Outcomes/Goals Expected Outcomes/Goals 1. Pt to meet at least 75% of nutritional needs via nutrition support with minimal residuals 2. Wt stability, improved skin integrity, labs to approach WNL. 3. F/U as high risk in 2-3 days, 04/29-04/30
[2018-05-05 15:57] LABS: ANION GAP 15.6 (7.0-16.0); BUN - UREA NITROGEN 19 mg/dL (7-25); CALCIUM SERUM 8.8 mg/dL (8.6-10.3); CARBON DIOXIDE 15.6 mEq/L (21.0-31.0); CHLORIDE 108 mEq/L (98-107); CREATININE - SERUM 0.9 mg/dL (0.7-1.3); GLUCOSE 76 mg/dL (70-105); SODIUM SERUM 133 mEq/L (136-145)
[2018-05-05 16:12] LABS: POTASSIUM SERUM 6.2 mEq/L (3.5-5.1)
[2018-05-06] MEDS: Ferrous Sulfate 300 MG/5 ML UDC GT SCH ×2 (04:25→13:08)
[2018-05-06 04:49] LABS: ANION GAP 12.4 (7.0-16.0); BUN - UREA NITROGEN 20 mg/dL (7-25); CALCIUM SERUM 8.7 mg/dL (8.6-10.3); CARBON DIOXIDE 20.9 mEq/L (21.0-31.0); CHLORIDE 107 mEq/L (98-107); GLUCOSE 93 mg/dL (70-105); POTASSIUM SERUM 5.3 mEq/L (3.5-5.1); SODIUM SERUM 135 mEq/L (136-145)
[2018-05-06] MEDS: INSULIN ASPART SLIDING SCALE 100 UNITS/ML UNIT SUBQ SCH ×3 (06:00→17:28)
[2018-05-06] MEDS: Ampicillin Sodium/Sulbactam 3 GM in Sodium Chloride 0.9% 100 ML IV SCH ×3 (06:00→17:20)
[2018-05-06] MEDS: Levothyroxine 0.025 Mg Tab GT SCH (06:52)
[2018-05-06] MEDS: Pantoprazole 40 mg/Packet GT SCH (06:52)
[2018-05-06] MEDS: Ipratropium Neb 0.5 mg/2.5 mL UD HHN SCH ×3 (07:41→15:36)
[2018-05-06] MEDS: Albuterol Nebulizer 2.5mg/3mL HHN SCH ×3 (07:41→15:36)
--- NOTE | 2018-05-06 07:53 | Diagnostic Imaging Report ---
Exam: Portable chest x-ray HISTORY: Shortness of breath. Portable upright examination of chest at 0740 hours reviewed compatible prior exam of 05/04/2017 demonstrates decrease in congestion and right-sided pneumonia. HISTORY congestive tube midline. Bony thorax remarkable for degenerative changes. IMPRESSION: Improved aeration, decrease congestion, decrease the right basilar infiltrate.
[2018-05-06] MEDS: Chlorhexidine Gluconate 0.12% 15mL Mouthwash MM SCH (08:44)
[2018-05-06] MEDS: Multivitamin w/ Minerals Tab GT SCH (08:44)
[2018-05-06] MEDS: Hydrocodone/APAP 5mg/325mg Tab GT PRN (08:44)
[2018-05-06] MEDS: Artificial Tear Ophth Oint 3.5 Gm Tube EACH EYE SCH ×2 (08:45→17:30)
[2018-05-06] MEDS: NYSTATIN 100000 UNITS/GM POWD TP PRN ×2 (08:45→17:30)
[2018-05-06] MEDS: DEXTROSE IV SCH (09:38)
[2018-05-06] MEDS: TMP IV SCH (09:38)
[2018-05-06] MEDS: SULFAMETHOXAZOLE IV SCH (09:38)
[2018-05-06] MEDS: Epoetin Alfa 20000 Units/mL Vial SUBQ SCH (09:38)
--- NOTE | 2018-05-06 11:23 | Internal Medicine Prog Note ---
Internal Medicine Subjective - Subjective Service Date: 05/06/18 Patient seen and examined:: with staff Patient is:: awake, non-verbal, interactive, in bed, congested Patient Complaints of:: congestion Per staff patient has:: no adverse event, no episodes of fall, combative, tolerating meds Internal Medicine Objective - Results Result Diagrams: 05/04/18 04:15 05/06/18 04:20 Recent Labs: Laboratory Last Values WBC 10.8 Th/cmm (4.8-10.8) 05/04/18 04:15 RBC 3.34 Mil/cmm (3.80-5.80) L 05/04/18 04:15 Hgb 10.4 gm/dL (12-16) L 05/04/18 04:15 Hct 30.4 % (41.0-60) L 05/04/18 04:15 MCV 91.1 fl (80-99) 05/04/18 04:15 MCH 31.1 pg (27.0-31.0) H 05/04/18 04:15 MCHC Differential 34.1 pg (28.0-36.0) 05/04/18 04:15 RDW 12.8 % (11.5-20.0) 05/04/18 04:15 Plt Count 155 Th/cmm (150-400) 05/04/18 04:15 MPV 10.3 fl 05/04/18 04:15 Neutrophils % 59.8 % (40.0-80.0) 05/04/18 04:15 Band Neutrophils % 1 % (0-10) 05/02/18 04:45 Lymphocytes % 21.2 % (20.0-50.0) 05/04/18 04:15 Monocytes % 5.7 % (2.0-10.0) 05/04/18 04:15 Eosinophils % 13.0 % (0.0-5.0) H 05/04/18 04:15 Basophils % 0.3 % (0.0-2.0) 05/04/18 04:15 Neutrophils (Manual) 73 % (40-80) 05/02/18 04:45 Lymphocytes 17 % (20-50) L 05/02/18 04:45 Monocytes 1 % (2-10) L 05/02/18 04:45 Eosinophils 8 % (0-5) H 05/02/18 04:45 Basophils 0 % (0-3) 04/26/18 22:03 Platelet Estimate ADEQUATE (NORMAL) 05/02/18 04:45 Platelet Morphology NORMAL (NORMAL) 04/26/18 22:03 RBC Morph Micro Appear NORMAL (NORMAL) 04/26/18 22:03 Sodium 135 mEq/L (136-145) L 05/06/18 04:20 Potassium 5.3 mEq/L (3.5-5.1) H 05/06/18 04:20 Chloride 107 mEq/L (98-107) 05/06/18 04:20 Carbon Dioxide 20.9 mEq/L (21.0-31.0) L 05/06/18 04:20 Anion Gap 12.4 (7.0-16.0) 05/06/18 04:20 BUN 20 mg/dL (7-25) 05/06/18 04:20 Creatinine 1.0 mg/dL (0.7-1.3) 05/06/18 04:20 Est GFR ( Amer) TNP 05/06/18 04:20 Est GFR (Non-Af Amer) TNP 05/06/18 04:20 BUN/Creatinine Ratio 20.0 05/06/18 04:20 Glucose 93 mg/dL (70-105) 05/06/18 04:20 POC Glucose 86 MG/DL (70 - 105) 05/05/18 23:50 Calcium 8.7 mg/dL (8.6-10.3) 05/06/18 04:20 Total Bilirubin 1.1 mg/dL (0.3-1.0) H 04/27/18 08:37 AST 33 U/L (13-39) 04/27/18 08:37 ALT 21 U/L (7-52) 04/27/18 08:37 Alkaline Phosphatase 116 U/L (34-104) H 04/27/18 08:37 Ammonia 60 umol/L (16-53) H 05/04/18 04:15 B-Natriuretic Peptide 740.0 pg/mL (5.0-100.0) H 05/04/18 04:15 Total Protein 6.3 gm/dL (6.0-8.3) 04/27/18 08:37 Albumin 2.9 gm/dL (4.2-5.5) L 04/27/18 08:37 Globulin 3.4 gm/dL 04/27/18 08:37 Albumin/Globulin Ratio 0.9 (1.0-1.8) L 04/27/18 08:37 Urine Source CLEAN C 04/26/18 22:15 Urine Color YELLOW 04/26/18 22:15 Urine Clarity CLOUDY (CLEAR) 04/26/18 22:15 Urine pH 7.5 (4.6 - 8.0) 04/26/18 22:15 Ur Specific [place] 1.005 (1.005-1.030) 04/26/18 22:15 Urine Protein 100 mg/dL (NEGATIVE) H 04/26/18 22:15 Urine Glucose (UA) NEGATIVE mg/dL (NEGATIVE) 04/26/18 22:15 Urine Ketones NEGATIVE mg/dL (NEGATIVE) 04/26/18 22:15 Urine Blood LARGE (NEGATIVE) H 04/26/18 22:15 Urine Nitrate POSITIVE (NEGATIVE) H 04/26/18 22:15 Urine Bilirubin NEGATIVE (NEGATIVE) 04/26/18 22:15 Urine Urobilinogen 0.2 E.U./dL (0.2 - 1.0) 04/26/18 22:15 Ur Leukocyte Esterase MODERATE (NEGATIVE) H 04/26/18 22:15 Urine RBC 10-25 /hpf (0-5) H 04/26/18 22:15 Urine WBC 10-25 /hpf (0-5) H 04/26/18 22:15 Ur Epithelial Cells NONE SEEN /lpf (FEW) 04/26/18 22:15 Urine Bacteria MODERATE /hpf (NONE SEEN) H 04/26/18 22:15 Vancomycin Trough 13.6 ug/mL (5-10) H 04/28/18 19:40 - Physical Exam Vitals and I&O: Vital Signs Temp 97.6 F 05/06/18 11:00 Pulse 60 05/06/18 11:16 Resp 18 05/06/18 11:00 BP 95/44 05/06/18 11:00 Pulse Ox 99 05/06/18 11:16 Intake & Output 05/05/18 05/06/18 05/06/18 18:59 06:59 18:59 Intake Total 1840 1740 Balance 1840 1740 Weight (lbs) 158 lb 12.8 oz 160 lb Intake: Intake, IV Amount 720 720 Ampicillin Sodium/ 200 200 Sulbactam 3 gm In Sodium Chloride 0.9% 100 ml @ 100 mls/hr IV Q6HR [facility] Rx #:[id number] Sulfamethoxazole/TMP 20 520 520 ml In Dextrose 5% 500 ml @ 348 mls/hr IV Q12HR@ 1000,2200 [facility] Rx#: [id number] Tube Feeding 720 720 Other 400 300 Other: # Voids 6 6 # Bowel Movements 2 5 Stool Characteristics Black Black Soft Green Green Liquid Brown Weight Source Bedscale Bedscale Active Medications: Current Medications Acetaminophen (Tylenol) 650 mg GT Q6HR PRN PRN Reason: Pain or Fever >101 Stop: 06/25/18 23:53 Last Admin: 04/27/18 09:39 Dose: 650 mg Acetaminophen/Hydrocodone Bitart ([place] 5mg/325mg) 1 tab GT Q8H PRN PRN Reason: Pain (Severe) Stop: 06/25/18 23:53 Last Admin: 05/06/18 08:44 Dose: 1 tab Albuterol Sulfate (Albuterol 2.5mg/3ml Neb Ud) 2.5 mg HHN QIDRT [facility] Stop: 06/26/18 06:59 Last Admin: 05/06/18 11:10 Dose: 2.5 mg Alprazolam (Xanax) 0.5 mg GT Q6HR PRN; Protocol PRN Reason: Anxiety Stop: 06/25/18 23:53 Last Admin: 05/06/18 04:25 Dose: 0.5 mg Artificial Tears (Artificial Tears Ophth Soln) 1 drop EACH EYE TID PRN PRN Reason: Dry Eye Stop: 06/25/18 23:53 Artificial Tears (Lubrifresh Ophth Oint) 1 appl EACH EYE BID [facility] Stop: 06/28/18 16:59 Last Admin: 05/06/18 08:45 Dose: 1 appl Ascorbic Acid (Vitamin C) 500 mg GT DAILY [facility] Stop: 06/26/18 08:59 Last Admin: 05/06/18 08:44 Dose: 500 mg Celecoxib (Celebrex) 200 mg GT DAILY [facility] Stop: 06/27/18 08:59 Last Admin: 05/06/18 08:43 Dose: 200 mg Chlorhexidine Gluconate (Peridex) 15 ml MM 0800,1999 [facility] Stop: 06/26/18 07:59 Last Admin: 05/06/18 08:44 Dose: 15 ml Epoetin [place] (Epogen) 4,000 units SUBQ MWF [facility] Stop: 06/28/18 08:59 Last Admin: 05/06/18 09:38 Dose: 4,000 units Ferrous Sulfate (Iron) 330 mg GT Q8HR [facility] Stop: 06/26/18 04:59 Last Admin: 05/06/18 04:25 Dose: 330 mg Fluocinonide (Lidex 0.05%) 1 appl TP BID [facility] Stop: 06/26/18 08:59 Last Admin: 05/06/18 08:45 Dose: 1 appl Furosemide (Lasix) 20 mg IVP BID [facility] Stop: 07/03/18 16:59 Last Admin: 05/06/18 08:44 Dose: 20 mg Guaifenesin (Robitussin) 200 mg PO Q4HR PRN PRN Reason: Cough or Congestion Stop: 06/25/18 23:56 Norepinephrine Bitartrate 4 mg (/ Dextrose) 254 mls @ 0 mls/hr IV TITR PRN; Protocol PRN Reason: To Keep SBP Above 90 Stop: 06/26/18 08:13 Last Titration: 04/28/18 16:00 Dose: 0 mcg/min, 0 mls/hr Trimethoprim/Sulfamethoxazole (20 ml/ Dextrose) 520 mls @ 348 mls/hr IV Q12HR@ 1000,2200 [facility] Stop: 06/30/18 13:59 Last Admin: 05/06/18 09:38 Dose: 348 mls/hr Ampicillin Sodium/Sulbactam (Sodium 3 gm/ Sodium Chloride) 100 mls @ 100 mls/ hr IV Q6HR [facility] Stop: 05/15/18 17:59 Last Admin: 05/06/18 06:00 Dose: 100 mls/hr Dextrose/Sodium Chloride (D5-0.45ns) 1,000 mls @ 10 mls/hr IV .Q24H [facility] Stop: 07/03/18 14:29 Last Infusion: 05/05/18 06:00 Dose: 10 mls/hr Insulin Aspart (Novolog Insulin Sliding Scale) 0 units SUBQ Q6HR [facility]; Protocol Stop: 06/26/18 11:59 Last Admin: 05/06/18 06:00 Dose: Not Given Ipratropium [place] (Atrovent Neb 0.5mg/2.5ml) 0.5 mg HHN QIDRT [facility] Stop: 06/26/18 06:59 Last Admin: 05/06/18 11:10 Dose: 0.5 mg Ketoconazole (Nizoral 2% Cream) 1 appl TP BID [facility] Stop: 06/26/18 08:59 Last Admin: 05/06/18 08:45 Dose: 1 appl Levothyroxine Sodium (Synthroid) 0.025 mg GT QDAC [facility] Stop: 06/26/18 07:29 Last Admin: 05/06/18 06:52 Dose: 0.025 mg Loperamide HCl (Imodium Oral Soln) 2 mg GT Q6HR PRN PRN Reason: Diarrhea Stop: 06/26/18 03:14 Lorazepam (Ativan) 0.5 mg IVP Q6HR PRN; Protocol PRN Reason: Anxiety AND CAN'T TAKE PO Stop: 07/02/18 12:49 Last Admin: 05/05/18 17:21 Dose: 0.5 mg Midodrine (Proamatine) 5 mg GT TID [facility] Stop: 06/26/18 08:59 Last Admin: 05/06/18 08:43 Dose: 5 mg Nystatin (Nystop) 100 units TP DAILY PRN PRN Reason: Rash Stop: 06/28/18 11:49 Last Admin: 05/06/18 08:45 Dose: 100 units Ondansetron HCl (Zofran) 4 mg IV Q8H PRN PRN Reason: Nausea / Vomiting Stop: 06/25/18 23:56 Pantoprazole Sodium (Protonix) 40 mg GT QDAC [facility] Stop: 06/26/18 07:29 Last Admin: 05/06/18 06:52 Dose: 40 mg Paroxetine HCl (Paxil) 10 mg GT DAILY [facility]; Protocol Stop: 06/26/18 08:59 Last Admin: 05/06/18 08:43 Dose: 10 mg Pyridostigmine [place] (Mestinon) 60 mg GT BID [facility] Stop: 06/26/18 08:59 Last Admin: 05/06/18 08:43 Dose: 60 mg Trimethoprim/Sulfamethoxazole (Bactrim Iv Per Pharmacy) 1 ea PRN [facility] Stop: 06/30/18 12:29 General: weak, demented HEENT: NC/AT, PERRLA Neck: Supple, + trach Lungs: ronchi Cardiovascular: RRR, Normal S1, Normal S2, without murmur Abdomen: soft, non-tender, non-distended, positive bowel sound Extremities: excoriation, contracture Neurological: alert - Procedures Procedures: Procedures Procedure Code Date EGD PLACE GASTROSTOMY TUBE 18431 06/02/16 INSERTION OF FEEDING DEVICE INTO STOMACH, ENDO [id number] 06/02/16 RESPIRATORY VENTILATION, GREATER THAN 96 CONSECUTIVE HOURS [id number] 04/27/18 VENT MGMT INPAT INIT DAY 06/02/16 VENT MGMT INPAT SUBQ DAY 06/02/16 Internal Medicine Assmt/Plan - Assessment Assessment: sepsis acute uti with esbl e.coli with proteus mirabilis sputum culture positive for klebsiella pneumoniae hypotension-resolved hypokalemia-improving acute renal insufficiency- r/o dehydration vdrf acute on chronic respiratory failure mild protein calorie malnutrition - Plan Plan: matt planning to [facility] once bed available follow up labs in am continue ivabx vent support ivf for hydration monitor bp continue current plan of care Nutritional Asmnt/Malnutr-PDOC - Dietary Evaluation Malnutrition Findings (Please click <Entered> for more info): Nutritional Asmnt/Malnutrition Start: 04/27/18 09: 23 Text: Status: Complete Freq: Protocol: Document 04/27/18 09:24 [facility] (Rec: 04/27/18 09:38 [id number]) Nutritional Asmnt/Malnutrition Patient General Information Nutritional Screening High Risk Consult Diagnosis Sepsis, UTI Pertinent Medical Hx/Surgical Hx G-tube; 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 [facility]; confused. Patient seen sleeping in ICU. Current Diet Order/ Nutrition Support TF Diabetisource 50 mL/hr continuous Patient / S.O Can't verbalize diet edu Pertinent Medications vit C, D5, FeSO4, Epo, Novolog , Synthroid, zofran, protonix, Pertinent Labs 04/27: Alb 2.9, K+ 2.9, Glu 142 04/26: Alb 3.4, K+ 3.5, Glu 122 Nutritional Hx/Data Height 5 ft 6 in Height (Calculated Centimeters) 167.6 Current Weight (lbs) 154 lb Weight (Calculated Kilograms) 69.9 Weight (Calculated Grams) 23068.2 [place] Body Weight 142 % [place] Body Weight 108 Body Mass Index (BMI) 24.8 Weight Status Approriate GI Symptoms Last BM none indicated Difficult in: Chewing Swallowing Food Allergies unknown Cultural/Ethnic/Ep[employer] Belief unknown Usual diet at home TF at SNF Skin Integrity/Comment: [place] 12, multiple skin abrasions to L hand, L foot; reddened scabs to L thigh, RUE , r foot, buttock Estimated Nutritional Goals BEE in Kcals: Using Current wt Calories/Kcals/Kg [id number] Kcals Calculated 1750 Protein: Using Current wt Protein g/k-1.2 Protein Calculated 70-84 Fluid: ml 1750 - 1890 (1ml/kcal) Nutritional Problem 1. Problem Problem Increased protein needs Etiology impaired skin integrity Signs/Symptoms: russell 12, multiple skin abrasions/tears Intervention/Recommendation Comments 1. If medically appropriate, recommend increasing TF rate to Diabetisource 60 mL/hr to provide 1728 Kcals, 86g protein, 1178 mL free water, 100% RDI. Recommend 150 mL free water flushes q 6 hours to provide additional 600 mL fluids for total 1778 mL/day. 2. Recommend adding arginine for wound healing. Expected Outcomes/Goals Expected Outcomes/Goals 1. Pt to meet at least 75% of nutritional needs via nutrition support with minimal residuals 2. Wt stability, improved skin integrity, labs to approach WNL. 3. F/U as high risk in 2-3 days, 04/29-04/30
[2018-05-06] MEDS: D5-0.45NS 1,000 ML IV SCH (17:32)
== END 2018-05-06 18:30 | DRG 870 ==
LOC: ER 20:52 → ICU 04-27 00:10
PROVIDERS: ADMIT Internal Medicine; ATTEND Internal Medicine
PROC: 5A1955Z Respiratory Ventilation, Greater than 96 Consecutive Hours (ICD-10-PCS; principal; 2018-04-27)
PROC: 0BH17EZ Insertion of Endotracheal Airway into Trachea, Via Natural or Artificial Opening (ICD-10-PCS; 2018-04-27)
DX: A41.9 Sepsis, unspecified organism (principal); J96.20 Acute and chronic respiratory failure, unspecified whether with hypoxia or hypercapnia; J15.0 Pneumonia due to Klebsiella pneumoniae; N39.0 Urinary tract infection, site not specified; E44.1 Mild protein-calorie malnutrition; Z99.11 Dependence on respirator [ventilator] status; F25.0 Schizoaffective disorder, bipolar type; F41.9 Anxiety disorder, unspecified; E86.0 Dehydration; I95.9 Hypotension, unspecified; B96.20 Unspecified Escherichia coli [E. coli] as the cause of diseases classified elsewhere; N28.9 Disorder of kidney and ureter, unspecified; F03.90 Unspecified dementia, unspecified severity, without behavioral disturbance, psychotic disturbance, mood disturbance, and anxiety; E87.6 Hypokalemia; Z93.0 Tracheostomy status; Z85.820 Personal history of malignant melanoma of skin; Z68.26 Body mass index [BMI] 26.0-26.9, adult
CPT/HCPCS: 36415-UA; 71045-TC; 76857-TC; 80048-TC; 80053-TC; 80202-TC; 81001-TC; 82140-TC; 82948-90; 83880-TC; 84132-TC; 85007-TC; 85025-TC; 85027-TC; 87070; 87086-90; 90779; 90799; 93005; 94002; 94003; J0295; J0885; J1815; J1940; J2060; J2543; J3370; J3480; J7030; J7042; J7613; P9046; X6452; Z7610

== ENCOUNTER 2018-07-18 14:50 | Inpatient (IN) | payer MEDICARE, MEDICAID ==
--- NOTE | 2018-07-18 15:06 | ED Physician Chart ---
ED Chief Complaint/HPI - Patient Information Date Seen:: 07/18/18 Time Seen:: 14:55 Chief Complaint:: normal lab History of Present Illness:: Labs done this am showed a hemoglobin of 11.1 and a hematocrit of 33. 7 and a white blood cell count of 31,800. Allergies:: Allergies Allergy/AdvReac Type Severity Reaction Status Date / Time No Known Allergies Allergy Verified 06/02/16 22:18 Historian:: Medical Records Review:: Transfer documents Reviewed ED Review of Systems - Review of Systems General/Constitutional: No fever, No chills, No weight loss, No weakness, No diaphoresis, No edema, No loss of appetite Skin: No skin lesions, No rash, No bruising Head: No headache, No light-headedness Eyes: No loss of vision, No pain, No diplopia ENT: No earache, No nasal drainage, No sore throat, No tinnitus Neck: No neck pain, No swelling, No thyromegaly, No stiffness, No mass noted Cardio Vascular: No chest pain, No palpitations, No PND, No orthopnea, No edema Pulmonary: No SOB, No cough, No sputum, No wheezing GI: No nausea, No vomiting, No diarrhea, No pain, No melena, No hematochezia, No constipation, No hematemesis G/U: No dysuria, No frequency, No hematuria Musculoskeletal: No bone or joint pain, No back pain, No muscle pain Endocrine: No polyuria, No polydipsia Psychiatric: No prior psych history, No depression, No anxiety, No suicidal ideation Hematopoietic: No bruising, No lymphadenopathy Allergic/Immuno: No urticaria, No angioedema Neurological: No syncope, No focal symptoms, No weakness, No paresthesia, No headache, No seizure, No dizziness, No confusion, No vertigo ED Past Medical History - Past Medical History Past Medical History: HTN, DM, CHF, Asthma/COPD, Other (dysphagia; anxiety disorder; hypothyroidism; dry eye syndrome; major depression; ventilator dependent; aortic valve stenosis; I deficiency anemia) Family History: Other (I available) Social History: Care Facility Surgical History: PEG/GTube, other (tracheotomy) Psychiatricy History: Depression Medication: Reviewed Family Medical History - Family Member Mother History Unknown: Yes ED Physical Exam - Physical Examination General/Constitutional: Awake Other Gen/Cons comments:: Chronically ill-appearing Head: Atraumatic Eyes: Lids, conjuctiva normal Other Skin comments:: bandage right foot ENMT: External ears, nose nl Neck: No mass Respiratory: Nl effort/Exclusion, Clear to Auscultation Cardio Vascular: RRR Other Cardio Vascular comments:: 4/6 systolic murmur GI: No tenderness/rebounding/guarding Extremities: No edema Neuro/Psych: No focal deficits ED Labs/Radiology/EKG Results - Lab Results Results: Laboratory Results - last 24 hr 07/18/18 07/18/18 07/18/18 15:00 15:00 15:00 WBC 37.6 H* D RBC 3.95 Hgb 12.3 Hct 36.5 L MCV 92.4 MCH 31.1 H MCHC Differential 33.7 RDW 12.7 Plt Count 296 MPV 10.1 Add Manual Diff YES Band Neutrophils % 6 Neutrophils (Manual) 88 H Lymphocytes 2 L Monocytes 4 Eosinophils 0 Basophils 0 Platelet Estimate ADEQUATE Platelet Morphology NORMAL RBC Morph Micro Appear NORMAL Sodium 132 L Potassium 3.7 Chloride 94 L Carbon Dioxide 25.4 Anion Gap 16.3 H BUN 120 H* Creatinine 1.9 H Est GFR ( Amer) TNP Est GFR (Non-Af Amer) TNP BUN/Creatinine Ratio 63.2 Glucose 153 H Whole Bld Lactic Acid Calcium 9.4 Lipase 85 H 07/18/18 15:00 WBC RBC Hgb Hct MCV MCH MCHC Differential RDW Plt Count MPV Add Manual Diff Band Neutrophils % Neutrophils (Manual) Lymphocytes Monocytes Eosinophils Basophils Platelet Estimate Platelet Morphology RBC Morph Micro Appear Sodium Potassium Chloride Carbon Dioxide Anion Gap BUN Creatinine Est GFR ( Amer) Est GFR (Non-Af Amer) BUN/Creatinine Ratio Glucose Whole Bld Lactic Acid 1.79 Calcium Lipase ED Septic Shock - . Is Septic Shock (SBP<90, OR Lactate>4 mmol\L) present?: No ED Reassessment (Disposition) - Reassessment Reassessment Condition:: Unchanged - Diagnosis Diagnosis:: Leukocytosis; urinary tract infection; ventilator dependent; history of carcinoma of prostate - Patient Disposition Admitted to:: ICU Admitting Medical Physician:: Maico Bowden Condition at Disposition:: Stable, Unchanged
[2018-07-18 15:20] LABS: BASOPHILE ABSOLUTE 0.2 Th/cumm (0-0.2); EOSINOPHILE ABSOLUTE 0.2 Th/cmm (0.1-0.4); HEMATOCRIT 36.5 % (41.0-60); HEMOGLOBIN 12.3 gm/dL (12-16); LYMPHOCYTE ABSOLUTE 1.1 Th/cmm (1.5-3.0); MEAN CELL VOLUME 92.4 fl (80-99); MEAN CORPUSCULAR HEMOGLOBIN 31.1 pg (27.0-31.0); MEAN CORPUSCULAR HGB CONC 33.7 pg (28.0-36.0); MEAN PLATELET VOLUME 10.1 fl; MONOCYTE ABSOLUTE 1.3 Th/cmm (0.3-1.0); NEUTROPHILE ABSOLUTE 34.8 Th/cmm (1.8-8.0); PLATELET COUNT 296 Th/cmm (150-400); RED BLOOD COUNT 3.95 Mil/cmm (3.80-5.80); RED CELL DISTRIBUTION WIDTH 12.7 % (11.5-20.0)
[2018-07-18 15:27] LABS: WHITE BLOOD COUNT 37.6 Th/cmm (4.8-10.8)
[2018-07-18 15:40] LABS: ANION GAP 16.3 (7.0-16.0); CALCIUM SERUM 9.4 mg/dL (8.6-10.3); CARBON DIOXIDE 25.4 mEq/L (21.0-31.0); CHLORIDE 94 mEq/L (98-107); CREATININE - SERUM 1.9 mg/dL (0.7-1.3); GLUCOSE 153 mg/dL (70-105); POTASSIUM SERUM 3.7 mEq/L (3.5-5.1); SODIUM SERUM 132 mEq/L (136-145)
[2018-07-18 16:01] LABS: URINE SOURCE FOLEY PORT
[2018-07-18 16:05] LABS: BAND NEUTROPHILE 6 % (0-10); LYMPHOCYTE 2 % (20-50); MONOCYTE 4 % (2-10); NEUTROPHILS 88 % (40-80)
[2018-07-18 16:06] LABS: BASOPHIL 0 % (0-3); EOSINOPHIL 0 % (0-5); PLATELET ESTIMATE ADEQUATE (NORMAL); PLATELET MORPHOLOGY NORMAL (NORMAL)
[2018-07-18 16:09] LABS: BUN - UREA NITROGEN 120 mg/dL (7-25)
[2018-07-18] MEDS ORDERED: Sodium Chloride 0.9% 1,000 ML IV ONE ×2 (16:23→16:49)
[2018-07-18] MEDS ORDERED: cefTRIAXone 1 GM in Sodium Chloride 0.9% 50 ML IV ONE (16:26)
[2018-07-18 16:33] LABS: URINE BILIRUBIN SMALL (NEGATIVE); URINE BLOOD LARGE (NEGATIVE); URINE CLARITY HAZY (CLEAR); URINE COLOR RED; URINE GLUCOSE (UA) NEGATIVE (NEGATIVE); URINE KETONE NEGATIVE (NEGATIVE); URINE MICROSCOPIC INDICATED? YES
[2018-07-18 16:34] LABS: URINE LEUKOCYTE ESTERASE MODERATE (NEGATIVE); URINE NITRATE POSITIVE (NEGATIVE); URINE PH 8.5 (4.6 - 8.0); URINE PROTEIN >300 mg/dL (NEGATIVE); URINE UROBILINOGEN 0.2 E.U./dL (0.2 - 1.0)
[2018-07-18 16:35] LABS: URINE RBC 50-100 /hpf (0-5)
[2018-07-18 16:36] LABS: URINE WBC 50-100 /hpf (0-5)
[2018-07-18 16:37] LABS: URINE BACTERIA FEW /hpf (NONE SEEN); URINE EPITHELIAL CELLS NONE SEEN /lpf (FEW)
[2018-07-18] MEDS ORDERED: guaiFENesin 200 MG/10 ML UDC GT PRN (18:46)
[2018-07-18] MEDS ORDERED: guaiFENesin 200 MG/10 ML UDC PO PRN (18:48)
[2018-07-18] MEDS ORDERED: Sodium Chloride 0.9% 1,000 ML IV SCH (19:00)
[2018-07-18] MEDS: Ipratropium Neb 0.5 mg/2.5 mL UD HHN SCH (20:03)
[2018-07-18] MEDS: Albuterol Nebulizer 2.5mg/3mL HHN SCH (20:03)
[2018-07-18] MEDS ORDERED: Piperacillin Sodium/Tazobact 2.25 gm Vial IV ONE (20:35)
[2018-07-18] MEDS: INSULIN ASPART, RECOMBINANT 100 UNITS/ML SUBQ SCH (20:55)
[2018-07-18] MEDS ORDERED: Sodium Chloride 0.9% 500 ML IV ONE (21:47)
[2018-07-18] MEDS ORDERED: Albumin 25% 25gm/100mL 25 GM/100 ML BTL IV ONE (21:48)
[2018-07-18] MEDS ORDERED: Norepinephrine 4 mg/4mL Vial IV ONE (23:26)
[2018-07-19] MEDS: Albuterol/Ipratropium Neb 3 ML AERS HHN SCH ×3 (00:10→13:11)
[2018-07-19] MEDS ORDERED: Piperacillin Sodium/Tazobact 2.25 gm Vial IV ONE (06:12)
[2018-07-19] MEDS: Levothyroxine 0.025 Mg Tab GT SCH (06:39)
[2018-07-19] MEDS: Pantoprazole 40 mg/Packet GT SCH (06:39)
[2018-07-19] MEDS: INSULIN ASPART, RECOMBINANT 100 UNITS/ML SUBQ SCH ×4 (07:29→21:54)
--- NOTE | 2018-07-19 07:48 | Diagnostic Imaging Report ---
CHEST X-RAY: AP view INDICATION: Pneumonia COMPARISON: 05/06/2018 FINDINGS: There is mild elevation of right hemidiaphragm. Increased bibasilar lung markings are noted. Low lung lungs are seen with chronic changes. Tracheostomy tube is stable. Heart size is normal. Degenerative changes of the spine and shoulders are noted with high-riding right humeral head. IMPRESSION: Increased bibasilar lung markings likely due to atelectatic changes. No focal consolidation identified. Suboptimal lung volumes.
[2018-07-19] MEDS: Multivitamin Tab GT SCH (09:24)
[2018-07-19] MEDS: Ferrous Sulfate 300 MG/5 ML UDC GT SCH ×2 (09:26→16:26)
[2018-07-19] MEDS: Docusate Sodium 100 mg/10 mL UD GT SCH (09:26)
[2018-07-19 09:39] LABS: MEAN CELL VOLUME 91.4 fl (80-99); PLATELET COUNT 247 Th/cmm (150-400)
[2018-07-19 09:41] LABS: ANION GAP 12.3 (7.0-16.0); CALCIUM SERUM 8.7 mg/dL (8.6-10.3); CARBON DIOXIDE 22.8 mEq/L (21.0-31.0); CHLORIDE 106 mEq/L (98-107); CREATININE - SERUM 1.3 mg/dL (0.7-1.3); GLUCOSE 163 mg/dL (70-105); POTASSIUM SERUM 3.1 mEq/L (3.5-5.1); SODIUM SERUM 138 mEq/L (136-145)
[2018-07-19 09:45] LABS: HEMATOCRIT 31.7 % (41.0-60); HEMOGLOBIN 10.9 gm/dL (12-16); MEAN CORPUSCULAR HEMOGLOBIN 31.5 pg (27.0-31.0); MEAN CORPUSCULAR HGB CONC 34.5 pg (28.0-36.0); MEAN PLATELET VOLUME 9.9 fl; RED BLOOD COUNT 3.47 Mil/cmm (3.80-5.80); RED CELL DISTRIBUTION WIDTH 12.5 % (11.5-20.0)
[2018-07-19 09:47] LABS: BUN - UREA NITROGEN 84 mg/dL (7-25); WHITE BLOOD COUNT 22.9 Th/cmm (4.8-10.8)
[2018-07-19 10:14] LABS: BAND NEUTROPHILE 1 % (0-10); EOSINOPHIL 1 % (0-5); LYMPHOCYTE 8 % (20-50); MONOCYTE 2 % (2-10); NEUTROPHILS 88 % (40-80)
[2018-07-19 10:15] LABS: BASOPHIL 0 % (0-3)
[2018-07-19] MEDS ORDERED: Probiotic Screen MC PRN (10:58)
[2018-07-19] MEDS ORDERED: Potassium Chloride 20 mEq ER Tab PO ONE (13:02)
--- NOTE | 2018-07-19 15:51 | Internal Medicine Prog Note ---
Internal Medicine Subjective - Subjective Service Date: 07/19/18 ([facility] [id number]) Internal Medicine Objective - Results Result Diagrams: 07/19/18 08:48 07/19/18 08:48 Recent Labs: Laboratory Last Values WBC 22.9 Th/cmm (4.8-10.8) H* D 07/19/18 08:48 RBC 3.47 Mil/cmm (3.80-5.80) L 07/19/18 08:48 Hgb 10.9 gm/dL (12-16) L 07/19/18 08:48 Hct 31.7 % (41.0-60) L 07/19/18 08:48 MCV 91.4 fl (80-99) 07/19/18 08:48 MCH 31.5 pg (27.0-31.0) H 07/19/18 08:48 MCHC Differential 34.5 pg (28.0-36.0) 07/19/18 08:48 RDW 12.5 % (11.5-20.0) 07/19/18 08:48 Plt Count 247 Th/cmm (150-400) 07/19/18 08:48 MPV 9.9 fl 07/19/18 08:48 Add Manual Diff YES 07/19/18 08:48 Band Neutrophils % 1 % (0-10) 07/19/18 08:48 Neutrophils (Manual) 88 % (40-80) H 07/19/18 08:48 Lymphocytes 8 % (20-50) L 07/19/18 08:48 Monocytes 2 % (2-10) 07/19/18 08:48 Eosinophils 1 % (0-5) 07/19/18 08:48 Basophils 0 % (0-3) 07/19/18 08:48 Platelet Estimate ADEQUATE (NORMAL) 07/18/18 15:00 Platelet Morphology NORMAL (NORMAL) 07/18/18 15:00 RBC Morph Micro Appear NORMAL (NORMAL) 07/18/18 15:00 Sodium 138 mEq/L (136-145) 07/19/18 08:48 Potassium 3.1 mEq/L (3.5-5.1) L 07/19/18 08:48 Chloride 106 mEq/L (98-107) 07/19/18 08:48 Carbon Dioxide 22.8 mEq/L (21.0-31.0) 07/19/18 08:48 Anion Gap 12.3 (7.0-16.0) 07/19/18 08:48 BUN 84 mg/dL (7-25) H* 07/19/18 08:48 Creatinine 1.3 mg/dL (0.7-1.3) 07/19/18 08:48 Est GFR ( Amer) TNP 07/19/18 08:48 Est GFR (Non-Af Amer) TNP 07/19/18 08:48 BUN/Creatinine Ratio 64.6 07/19/18 08:48 Glucose 163 mg/dL (70-105) H 07/19/18 08:48 POC Glucose 148 MG/DL (70 - 105) H 07/19/18 12:50 Whole Bld Lactic Acid 1.79 mmol/L (0.60-1.99) 07/18/18 15:00 Calcium 8.7 mg/dL (8.6-10.3) 07/19/18 08:48 Lipase 85 U/L (11-82) H 07/18/18 15:00 Urine Source [place] 07/18/18 15:15 Urine Color RED 07/18/18 15:15 Urine Clarity HAZY (CLEAR) 07/18/18 15:15 Urine pH 8.5 (4.6 - 8.0) 07/18/18 15:15 Ur Specific [place] 1.010 (1.005-1.030) 07/18/18 15:15 Urine Protein >300 mg/dL (NEGATIVE) H 07/18/18 15:15 Urine Glucose (UA) NEGATIVE mg/dL (NEGATIVE) 07/18/18 15:15 Urine Ketones NEGATIVE mg/dL (NEGATIVE) 07/18/18 15:15 Urine Blood LARGE (NEGATIVE) H 07/18/18 15:15 Urine Nitrate POSITIVE (NEGATIVE) H 07/18/18 15:15 Urine Bilirubin SMALL (NEGATIVE) H 07/18/18 15:15 Urine Urobilinogen 0.2 E.U./dL (0.2 - 1.0) 07/18/18 15:15 Ur Leukocyte Esterase MODERATE (NEGATIVE) H 07/18/18 15:15 Urine RBC 50-100 /hpf (0-5) H 07/18/18 15:15 Urine WBC 50-100 /hpf (0-5) H 07/18/18 15:15 Ur Epithelial Cells NONE SEEN /lpf (FEW) 07/18/18 15:15 Urine Bacteria FEW /hpf (NONE SEEN) 07/18/18 15:15 - Physical Exam Vitals and I&O: Vital Signs Temp 98.7 F 07/19/18 07:00 Pulse 66 07/19/18 15:42 Resp 13 07/19/18 07:00 BP 119/50 07/19/18 15:00 Pulse Ox 99 07/19/18 15:42 Intake & Output 07/18/18 07/19/18 07/19/18 18:59 06:59 18:59 Intake Total 1000 2009.998 1227.785 Output Total 400 1550 Balance 600 2009.998 -322.215 Weight (lbs) 150 lb 155 lb 6.4 oz Intake: Intake, IV Amount 1000 2009.998 157.785 Norepinephrine 4 mg In 110.998 57.785 Dextrose 5% 250 ml @ Per Protocol IV TITR PRN Rx#: [id number] Piperacillin Sodium/ 50 100 Tazobact 2.25 gm In Sodium Chloride 0.9% 50 ml @ 100 mls/hr IV Q8HR [facility] Rx#:[id number] Vancomycin HCl 1 gm In 250 Sodium Chloride 0.9% 250 ml @ 166.667 mls/hr IV ONCE ONE Rx#:[id number] Tube Feeding 370 Other 700 Output: Urine 400 1550 Other: # Bowel Movements 1 Stool Characteristics Soft [place] Weight Source Estimated Bedscale Active Medications: Current Medications Acetaminophen (Tylenol) 650 mg GT Q6HR PRN PRN Reason: Pain or Fever >101 Stop: 09/16/18 18:45 Acetaminophen (Tylenol) 650 mg PO Q4H PRN PRN Reason: Pain Or Fever above 101 Stop: 09/16/18 18:47 Acetaminophen/Hydrocodone Bitart ([place] 5mg/325mg) 1 tab GT Q8H PRN PRN Reason: MODERATE/SEVERE PAIN Stop: 09/16/18 18:45 Albuterol Sulfate (Albuterol 2.5mg/3ml Neb Ud) 2.5 mg HHN QIDRT [facility] Stop: 09/16/18 18:59 Last Admin: 07/18/18 20:03 Dose: 2.5 mg Albuterol/Ipratropium (Duoneb Neb) 3 ml HHN Q6HR [facility] Stop: 09/17/18 00:00 Last Admin: 07/19/18 13:11 Dose: 3 ml Artificial Tears (Artificial Tears Ophth Soln) 1 drop EACH EYE BID [facility] Stop: 09/17/18 16:59 Ascorbic Acid (Vitamin C) 500 mg GT DAILY [facility] Stop: 09/17/18 08:59 Last Admin: 07/19/18 09:24 Dose: 500 mg Docusate Sodium (Colace) 100 mg GT DAILY [facility] Stop: 09/17/18 08:59 Last Admin: 07/19/18 09:26 Dose: 100 mg Ferrous Sulfate (Iron) 300 mg GT BID [facility] Stop: 09/17/18 08:59 Last Admin: 07/19/18 09:26 Dose: 300 mg Guaifenesin (Robitussin) 200 mg GT Q4HR PRN PRN Reason: Cough Stop: 09/16/18 18:45 Heparin Sodium (Porcine) (Heparin) 5,000 units SUBQ Q12HR [facility] Stop: 09/16/18 20:59 Last Admin: 07/19/18 09:27 Dose: 5,000 units Sodium Chloride (Nacl 0.9%) 1,000 mls @ 100 mls/hr IV .Q10H [facility] Stop: 09/16/18 18:59 Last Admin: 07/18/18 20:52 Dose: 100 mls/hr Piperacillin Sod/Tazobactam (Sod 2.25 gm/ Sodium Chloride) 50 mls @ 100 mls/hr IV Q8HR [facility] Stop: 09/16/18 20:59 Last Infusion: 07/19/18 13:22 Dose: Infused Norepinephrine Bitartrate 4 mg (/ Dextrose) 254 mls @ 0 mls/hr IV TITR PRN; Protocol PRN Reason: BP MAINTENANCE (PER PROTOCOL) Stop: 09/16/18 22:19 Last Admin: 07/19/18 13:52 Dose: 2 mcg/min, 7.62 mls/hr Insulin Aspart (Novolog) 0 units SUBQ ACHS [facility]; Protocol Stop: 09/16/18 20:59 Last Admin: 07/19/18 07:29 Dose: Not Given Ipratropium [place] (Atrovent Neb 0.5mg/2.5ml) 0.5 mg HHN QIDRT [facility] Stop: 09/16/18 18:59 Last Admin: 07/18/18 20:03 Dose: 0.5 mg Lactobacillus Rhamnosus (Culturelle 15b) 1 each PO DAILY [facility] Stop: 09/18/18 08:59 Levothyroxine Sodium (Synthroid) 0.025 mg GT QDAC [facility] Stop: 09/17/18 07:29 Last Admin: 07/19/18 06:39 Dose: 0.025 mg Lorazepam (Ativan) 0.5 mg GT Q6H PRN; Protocol PRN Reason: Anxiety Stop: 09/16/18 18:45 Midodrine (Proamatine) 5 mg GT Q8H [facility] Stop: 09/16/18 18:59 Last Admin: 07/19/18 03:28 Dose: 5 mg Miscellaneous (Vancomycin Iv Per Pharmacy) 1 ea PRN [facility] Stop: 09/16/18 18:59 Miscellaneous (Probiotic Screen) 1 [facility] PRN PRN PRN Reason: PROTOCOL Stop: 09/17/18 10:57 Multivitamins/Vitamin C (Theragran) 1 tab GT DAILY [facility] Stop: 09/17/18 08:59 Last Admin: 07/19/18 09:24 Dose: 1 tab Pantoprazole Sodium (Protonix) 40 mg GT QDAC [facility] Stop: 09/17/18 07:29 Last Admin: 07/19/18 06:39 Dose: 40 mg Paroxetine HCl (Paxil) 20 mg GT DAILY [facility]; Protocol Stop: 09/17/18 08:59 Last Admin: 07/19/18 09:26 Dose: 20 mg Pyridostigmine [place] (Mestinon) 60 mg GT Q12H [facility] Stop: 09/16/18 18:59 Last Admin: 07/19/18 07:09 Dose: Not Given Sodium Chloride (Nacl Tab) 1 gm GT BID [facility] Stop: 09/17/18 08:59 Last Admin: 07/19/18 09:00 Dose: 1 gm - Procedures Procedures: Procedures Procedure Code Date EGD PLACE GASTROSTOMY TUBE 38406 06/02/16 INSERTION OF ENDOTRACHEAL AIRWAY INTO TRACHEA, VIA OPENING [id number] 04/27/18 INSERTION OF FEEDING DEVICE INTO STOMACH, ENDO [id number] 06/02/16 RESPIRATORY VENTILATION, GREATER THAN 96 CONSECUTIVE HOURS [id number] 04/27/18 [facility] MGMT INPAT INIT DAY 19336 06/02/16 [facility] MGMT INPAT SUBQ DAY 16323 06/02/16
[2018-07-19] MEDS: Polyvinyl Alcohol Ophth Soln 15 mL Bottle EACH EYE SCH (16:29)
--- NOTE | 2018-07-19 16:44 | History & Physical ---
ADMIT DATE: 07/18/2018 CHIEF COMPLAINT: Abnormal labs, BUN of 110 and creatinine of 1.83; scrotal swelling and hematuria. HISTORY OF PRESENT ILLNESS: This is an 82-year-old male who is well known to me from [facility] who was admitted to the ICU unit due to elevated BUN and creatinine. The patient was also noted to have a 2-day history of hematuria associated with scrotal swelling. For further management, the patient now admitted here to the ICU unit. PAST MEDICAL HISTORY: Myasthenia gravis, VDRF, [id number] respiratory failure, dementia and malignant melanoma. PAST SURGICAL HISTORY: PEG and tracheostomy. MEDICATIONS: Vitamin C, albuterol sulfate, folic acid, Reglan, multivitamins, Protonix, Paxil and zinc sulfate. SOCIAL HISTORY: The patient is a subacute resident of [facility], requiring 24-hour nursing and RT care. REVIEW OF SYSTEMS: Unable to obtain due to patient's mental status. PHYSICAL EXAMINATION: GENERAL: Elderly male, awake, alert, on ventilator, in no apparent distress. VITAL SIGNS: Temperature 98.7, heart rate 70, blood pressure 100/36, respirations 13 and O2 100%. HEENT: Head; normocephalic and atraumatic. NECK: Supple. No mass. LUNGS: Rhonchi bilaterally. CARDIOVASCULAR: Regular rate and rhythm. No murmurs, no gallops. ABDOMEN: Soft, nontender and nondistended. GENITOURINARY: The patient's scrotal is noted with swelling as well as hematuria. LABORATORY DATA: WBC 22.9, H and H 10.9/31.7 and platelet of 247. Sodium 138, potassium 3.1, chloride 106, BUN 84, creatinine 1.3. Urinalysis, the patient had urinalysis done, positive for UTI. DIAGNOSTICS: The patient had a chest x-ray done, impression is increased bibasilar lung markings likely due to atelectatic changes, no focal consolidation identified and suboptimal lung volumes. ASSESSMENT: 1. Sepsis. 2. Hematuria. ____ 3. Acute renal insufficiency, rule out severe dehydration. 4. Ventilator-dependent respiratory failure. 5. Myasthenia gravis. 6. Jinix-we-oqnoimk respiratory failure. 7. Dementia. 8. History of malignant myeloma. 9. Acute urinary tract infection. PLAN: The patient will be admitted to the ICU unit. We will get a Pulmonology on the case and the patient on IV antibiotics of vancomycin and Zosyn. Monitor patient's potassium closely. Also, get a renal ultrasound as well. We will continue to monitor this patient. JOB# [id number]
[2018-07-19] MEDS: Albuterol Nebulizer 2.5mg/3mL HHN SCH (19:23)
--- NOTE | 2018-07-19 21:47 | Consultation ---
DATE OF CONSULTATION: 07/19/2018 REFERRING PHYSICIAN: Dr. Bowden. Thank you very much for this consultation. HISTORY OF PRESENT ILLNESS: This is an 82-year-old male with history of chronic respiratory failure, myasthenia gravis, aortic stenosis, present having some hematuria at the halfway. UA was started. The patient developed hypotension, transferred for treatment and management. The patient is still having hematuria and a Daly catheter was placed and there is being irrigated. Blood pressure is improved with Levophed and IV fluids. OBJECTIVE: GENERAL: Awake, alert. VITAL SIGNS: Temperature 98.7, pulse 76, respirations is ____, blood pressure 100/76, saturation 98%. HEENT: Atraumatic, normocephalic. Pupils react to light and accommodation. Ears and nose and throat are normal. NECK: Supple. No JVD. CHEST: There are good breath sounds. No wheezing, no crackles. HEART: Regular rate and rhythm. ABDOMEN: Soft. EXTREMITIES: No edema. LABORATORY DATA: WBCs is a 37.6 down to 22.9, hemoglobin 10.9, hematocrit 31.7, platelets is 247. Sodium is 130, potassium 3.1, BUN is 84, creatinine 1.3. UA is positive for protein, nitrite, leukocyte esterase and WBCs. Chest x-ray showed small lung volume. There is no obvious infiltrates. IMPRESSION: 1. This is an 82-year-old male with a urinary tract infection. 2. Sepsis. 3. Acute renal failure, probably obstructive uropathy. 4. Hematuria. 5. Dysphagia. 6. Myasthenia gravis. PLAN: 1. We will continue ventilator support. 2. Antibiotics. 3. IV fluids. 4. Daly with irrigation and antibiotics and follow up urine culture. Thank you very much for this consultation. Follow the patient with you. JOB# [id number]
[2018-07-20] MEDS: Albuterol/Ipratropium Neb 3 ML AERS HHN SCH ×4 (02:24→18:51)
[2018-07-20 04:57] LABS: HEMOGLOBIN 9.6 gm/dL (12-16)
[2018-07-20 05:06] LABS: HEMATOCRIT 27.6 % (41.0-60); MEAN CELL VOLUME 91.8 fl (80-99); MEAN CORPUSCULAR HEMOGLOBIN 31.8 pg (27.0-31.0); MEAN CORPUSCULAR HGB CONC 34.6 pg (28.0-36.0); MEAN PLATELET VOLUME 9.2 fl; PLATELET COUNT 220 Th/cmm (150-400); RED BLOOD COUNT 3.01 Mil/cmm (3.80-5.80); RED CELL DISTRIBUTION WIDTH 12.9 % (11.5-20.0)
[2018-07-20 05:24] LABS: WHITE BLOOD COUNT 20.4 Th/cmm (4.8-10.8)
[2018-07-20 05:39] LABS: BAND NEUTROPHILE 3 % (0-10); LYMPHOCYTE 5 % (20-50); MONOCYTE 6 % (2-10); NEUTROPHILS 86 % (40-80); PLATELET ESTIMATE ADEQUATE (NORMAL)
[2018-07-20 05:52] LABS: ALB/GLOB RATIO 0.7 (1.0-1.8); ALBUMIN 2.4 gm/dL (4.2-5.5); ALKALINE PHOSPHATASE 174 U/L (34-104); ANION GAP 12.6 (7.0-16.0); BILIRUBIN,TOTAL 0.4 mg/dL (0.3-1.0); BUN - UREA NITROGEN 56 mg/dL (7-25); CALCIUM SERUM 8.5 mg/dL (8.6-10.3); CARBON DIOXIDE 20.9 mEq/L (21.0-31.0); CHLORIDE 114 mEq/L (98-107); GLUCOSE 131 mg/dL (70-105); MAGNESIUM 2.2 mg/dL (1.9-2.7); POTASSIUM SERUM 3.5 mEq/L (3.5-5.1); SGOT 26 U/L (13-39); SGPT/ALT 22 U/L (7-52); SODIUM SERUM 144 mEq/L (136-145); TOTAL PROTEIN,SERUM 5.9 gm/dL (6.0-8.3)
[2018-07-20] MEDS: Levothyroxine 0.025 Mg Tab GT SCH (06:45)
[2018-07-20] MEDS: INSULIN ASPART, RECOMBINANT 100 UNITS/ML SUBQ SCH ×3 (06:45→17:31)
[2018-07-20] MEDS: Pantoprazole 40 mg/Packet GT SCH (06:45)
[2018-07-20] MEDS: Albuterol Nebulizer 2.5mg/3mL HHN SCH (07:39)
[2018-07-20] MEDS: Ipratropium Neb 0.5 mg/2.5 mL UD HHN SCH (07:39)
[2018-07-20] MEDS: Ferrous Sulfate 300 MG/5 ML UDC GT SCH ×2 (09:23→17:31)
[2018-07-20] MEDS: Hydrocodone/APAP 5mg/325mg Tab GT PRN (09:24)
[2018-07-20] MEDS: Docusate Sodium 100 mg/10 mL UD GT SCH (09:24)
[2018-07-20] MEDS: Polyvinyl Alcohol Ophth Soln 15 mL Bottle EACH EYE SCH ×2 (09:25→17:31)
[2018-07-20] MEDS: Multivitamin Tab GT SCH (09:25)
[2018-07-20] MEDS: Lactobacillus Rhamnosus GG 15 Billion CFU CAP.SPRINK PO SCH (09:25)
--- NOTE | 2018-07-20 10:06 | Diagnostic Imaging Report ---
CHEST X-RAY: AP view INDICATION: Pneumonia COMPARISON: 07/18/2018 FINDINGS: Tracheostomy tube is noted. There is elevation of the right hemidiaphragm. No focal consolidation or effusions. Increased interstitial lung markings are noted with low lung volume. Heart size is normal. IMPRESSION: Low lung volumes with increased lung markings likely due to chronic lung changes. A marginal degree of congestion is less likely. No focal consolidation identified.
[2018-07-20] MEDS ORDERED: Morphine Sulfate 2 mg/mL 1mL Syr IVP PRN (13:14)
--- NOTE | 2018-07-20 13:18 | Internal Medicine Prog Note ---
Internal Medicine Subjective - Subjective Service Date: 07/20/18 Patient seen and examined:: with staff Patient is:: awake, non-verbal Patient Complaints of:: other (hematuria) Per staff patient has:: tolerating meds Internal Medicine Objective - Results Result Diagrams: 07/20/18 04:50 07/20/18 04:50 Recent Labs: Laboratory Last Values WBC 20.4 Th/cmm (4.8-10.8) H* 07/20/18 04:50 RBC 3.01 Mil/cmm (3.80-5.80) L 07/20/18 04:50 Hgb 9.6 gm/dL (12-16) L 07/20/18 04:50 Hct 27.6 % (41.0-60) L 07/20/18 04:50 MCV 91.8 fl (80-99) 07/20/18 04:50 MCH 31.8 pg (27.0-31.0) H 07/20/18 04:50 MCHC Differential 34.6 pg (28.0-36.0) 07/20/18 04:50 RDW 12.9 % (11.5-20.0) 07/20/18 04:50 Plt Count 220 Th/cmm (150-400) 07/20/18 04:50 MPV 9.2 fl 07/20/18 04:50 Add Manual Diff YES 07/20/18 04:50 Band Neutrophils % 3 % (0-10) 07/20/18 04:50 Neutrophils (Manual) 86 % (40-80) H 07/20/18 04:50 Lymphocytes 5 % (20-50) L 07/20/18 04:50 Monocytes 6 % (2-10) 07/20/18 04:50 Eosinophils 1 % (0-5) 07/19/18 08:48 Basophils 0 % (0-3) 07/19/18 08:48 Platelet Estimate ADEQUATE (NORMAL) 07/20/18 04:50 Platelet Morphology NORMAL (NORMAL) 07/18/18 15:00 RBC Morph Micro Appear NORMAL (NORMAL) 07/18/18 15:00 Sodium 144 mEq/L (136-145) 07/20/18 04:50 Potassium 3.5 mEq/L (3.5-5.1) 07/20/18 04:50 Chloride 114 mEq/L (98-107) H 07/20/18 04:50 Carbon Dioxide 20.9 mEq/L (21.0-31.0) L 07/20/18 04:50 Anion Gap 12.6 (7.0-16.0) 07/20/18 04:50 BUN 56 mg/dL (7-25) H 07/20/18 04:50 Creatinine 1.0 mg/dL (0.7-1.3) 07/20/18 04:50 Est GFR ( Amer) TNP 07/20/18 04:50 Est GFR (Non-Af Amer) TNP 07/20/18 04:50 BUN/Creatinine Ratio 56.0 07/20/18 04:50 Glucose 131 mg/dL (70-105) H 07/20/18 04:50 POC Glucose 121 MG/DL (70 - 105) H 07/20/18 11:54 Whole Bld Lactic Acid 1.79 mmol/L (0.60-1.99) 07/18/18 15:00 Calcium 8.5 mg/dL (8.6-10.3) L 07/20/18 04:50 Magnesium 2.2 mg/dL (1.9-2.7) 07/20/18 04:50 Total Bilirubin 0.4 mg/dL (0.3-1.0) 07/20/18 04:50 AST 26 U/L (13-39) 07/20/18 04:50 ALT 22 U/L (7-52) 07/20/18 04:50 Alkaline Phosphatase 174 U/L (34-104) H 07/20/18 04:50 B-Natriuretic Peptide 575.0 pg/mL (5.0-100.0) H 07/20/18 04:50 Total Protein 5.9 gm/dL (6.0-8.3) L 07/20/18 04:50 Albumin 2.4 gm/dL (4.2-5.5) L 07/20/18 04:50 Globulin 3.5 gm/dL 07/20/18 04:50 Albumin/Globulin Ratio 0.7 (1.0-1.8) L 07/20/18 04:50 Lipase 85 U/L (11-82) H 07/18/18 15:00 TSH 2.52 uIU/ml (0.34-5.60) 07/20/18 04:50 Urine Source [place] 07/18/18 15:15 Urine Color RED 07/18/18 15:15 Urine Clarity HAZY (CLEAR) 07/18/18 15:15 Urine pH 8.5 (4.6 - 8.0) 07/18/18 15:15 Ur Specific [place] 1.010 (1.005-1.030) 07/18/18 15:15 Urine Protein >300 mg/dL (NEGATIVE) H 07/18/18 15:15 Urine Glucose (UA) NEGATIVE mg/dL (NEGATIVE) 07/18/18 15:15 Urine Ketones NEGATIVE mg/dL (NEGATIVE) 07/18/18 15:15 Urine Blood LARGE (NEGATIVE) H 07/18/18 15:15 Urine Nitrate POSITIVE (NEGATIVE) H 07/18/18 15:15 Urine Bilirubin SMALL (NEGATIVE) H 07/18/18 15:15 Urine Urobilinogen 0.2 E.U./dL (0.2 - 1.0) 07/18/18 15:15 Ur Leukocyte Esterase MODERATE (NEGATIVE) H 07/18/18 15:15 Urine RBC 50-100 /hpf (0-5) H 07/18/18 15:15 Urine WBC 50-100 /hpf (0-5) H 07/18/18 15:15 Ur Epithelial Cells NONE SEEN /lpf (FEW) 07/18/18 15:15 Urine Bacteria FEW /hpf (NONE SEEN) 07/18/18 15:15 - Physical Exam Vitals and I&O: Vital Signs Temp 98.4 F 07/20/18 13:00 Pulse 74 07/20/18 13:00 Resp 17 07/20/18 13:00 BP 112/51 07/20/18 13:00 Pulse Ox 99 07/20/18 13:00 Intake & Output 07/19/18 07/20/18 07/20/18 18:59 06:59 18:59 Intake Total 3184.842 7207.436 350 Output Total 1550 1850 Balance -322.215 -200.564 350 Weight (lbs) 155 lb 6.4 oz 155 lb 6.4 oz Intake: Intake, IV Amount 157.785 109.436 350 Norepinephrine 4 mg In 57.785 59.436 Dextrose 5% 250 ml @ Per Protocol IV TITR PRN Rx#: [id number] Piperacillin Sodium/ 100 50 100 Tazobact 2.25 gm In Sodium Chloride 0.9% 50 ml @ 100 mls/hr IV Q8HR [facility] Rx#:[id number] Vancomycin HCl 1 gm In 250 Sodium Chloride 0.9% 250 ml @ 165 mls/hr IV Q24HR@ 0900 [facility] Rx#:[id number] Tube Feeding 370 840 Other 700 700 Output: Urine 1550 1850 Other: # Bowel Movements 1 2 Stool Characteristics Soft Soft Soft [place] Weight Source Bedscale Bedscale Active Medications: Current Medications Acetaminophen (Tylenol) 650 mg GT Q6HR PRN PRN Reason: Pain or Fever >101 Stop: 09/16/18 18:45 Acetaminophen (Tylenol) 650 mg PO Q4H PRN PRN Reason: Pain Or Fever above 101 Stop: 09/16/18 18:47 Acetaminophen/Hydrocodone Bitart ([place] 5mg/325mg) 1 tab GT Q8H PRN PRN Reason: MODERATE/SEVERE PAIN Stop: 09/16/18 18:45 Last Admin: 07/20/18 09:24 Dose: 1 tab Albuterol Sulfate (Albuterol 2.5mg/3ml Neb Ud) 2.5 mg HHN QIDRT [facility] Stop: 09/16/18 18:59 Last Admin: 07/20/18 07:39 Dose: 2.5 mg Albuterol/Ipratropium (Duoneb Neb) 3 ml HHN Q6HR [facility] Stop: 09/17/18 00:00 Last Admin: 07/20/18 08:13 Dose: 3 ml Artificial Tears (Artificial Tears Ophth Soln) 1 drop EACH EYE BID [facility] Stop: 09/17/18 16:59 Last Admin: 07/20/18 09:25 Dose: 1 drop Ascorbic Acid (Vitamin C) 500 mg GT DAILY [facility] Stop: 09/17/18 08:59 Last Admin: 07/20/18 09:25 Dose: 500 mg Docusate Sodium (Colace) 100 mg GT DAILY [facility] Stop: 09/17/18 08:59 Last Admin: 07/20/18 09:24 Dose: 100 mg Ferrous Sulfate (Iron) 300 mg GT BID [facility] Stop: 09/17/18 08:59 Last Admin: 09/08/18 09:23 Dose: 300 mg Guaifenesin (Robitussin) 200 mg GT Q4HR PRN PRN Reason: Cough Stop: 09/16/18 18:45 Heparin Sodium (Porcine) (Heparin) 5,000 units SUBQ Q12HR [facility] Stop: 09/16/18 20:59 Last Admin: 07/20/18 09:26 Dose: 5,000 units Sodium Chloride (Nacl 0.9%) 1,000 mls @ 100 mls/hr IV .Q10H [facility] Stop: 09/16/18 18:59 Last Admin: 07/18/18 20:52 Dose: 100 mls/hr Piperacillin Sod/Tazobactam (Sod 2.25 gm/ Sodium Chloride) 50 mls @ 100 mls/hr IV Q8HR [facility] Stop: 09/16/18 20:59 Last Infusion: 07/20/18 12:30 Dose: Infused Norepinephrine Bitartrate 4 mg (/ Dextrose) 254 mls @ 0 mls/hr IV TITR PRN; Protocol PRN Reason: BP MAINTENANCE (PER PROTOCOL) Stop: 09/16/18 22:19 Last Titration: 07/19/18 21:40 Dose: 0 mcg/min, 0 mls/hr Vancomycin HCl 1 gm/ Sodium (Chloride) 250 mls @ 165 mls/hr IV Q24HR@0900 [facility] Stop: 09/18/18 08:59 Last Infusion: 07/20/18 10:55 Dose: Infused Insulin Aspart (Novolog) 0 units SUBQ Q6HR [facility]; Protocol Stop: 09/18/18 11:59 Last Admin: 07/20/18 11:55 Dose: Not Given Ipratropium [place] (Atrovent Neb 0.5mg/2.5ml) 0.5 mg HHN QIDRT [facility] Stop: 09/16/18 18:59 Last Admin: 07/20/18 07:39 Dose: 0.5 mg Lactobacillus Rhamnosus (Culturelle 15b) 1 each PO DAILY [facility] Stop: 09/18/18 08:59 Last Admin: 07/20/18 09:25 Dose: 1 each Levothyroxine Sodium (Synthroid) 0.025 mg GT QDAC [facility] Stop: 09/17/18 07:29 Last Admin: 07/20/18 06:45 Dose: 0.025 mg Lorazepam (Ativan) 0.5 mg GT Q6H PRN; Protocol PRN Reason: Anxiety Stop: 09/16/18 18:45 Last Admin: 07/19/18 16:30 Dose: 0.5 mg Midodrine (Proamatine) 5 mg GT Q8H [facility] Stop: 09/16/18 18:59 Last Admin: 07/20/18 11:55 Dose: 5 mg Miscellaneous (Vancomycin Iv Per Pharmacy) 1 ea PRN [facility] Stop: 09/16/18 18:59 Miscellaneous (Probiotic Screen) 1 ea PRN PRN PRN Reason: PROTOCOL Stop: 09/17/18 10:57 Morphine Sulfate (Morphine) 1 mg IVP Q4HR PRN PRN Reason: Pain (Moderate) Stop: 09/18/18 13:13 Multivitamins/Vitamin C (Theragran) 1 tab GT DAILY [facility] Stop: 09/17/18 08:59 Last Admin: 07/20/18 09:25 Dose: 1 tab Pantoprazole Sodium (Protonix) 40 mg GT QDAC [facility] Stop: 09/17/18 07:29 Last Admin: 07/20/18 06:45 Dose: 40 mg Paroxetine HCl (Paxil) 20 mg GT DAILY [facility]; Protocol Stop: 09/17/18 08:59 Last Admin: 07/20/18 09:25 Dose: 20 mg Pyridostigmine [place] (Mestinon) 60 mg GT Q12H [facility] Stop: 09/16/18 18:59 Last Admin: 07/20/18 06:45 Dose: 60 mg Sodium Chloride (Nacl Tab) 1 gm GT BID [facility] Stop: 09/17/18 08:59 Last Admin: 07/20/18 09:25 Dose: 1 gm General: weak, alert HEENT: NC/AT, PERRLA Neck: Supple Lungs: ronchi Cardiovascular: RRR, Normal S1, Normal S2, without murmur Abdomen: soft, non-tender, non-distended, positive bowel sound Extremities: excoriation Neurological: alert, unable to follow command - Procedures Procedures: Procedures Procedure Code Date EGD PLACE GASTROSTOMY TUBE 79431 06/02/16 INSERTION OF ENDOTRACHEAL AIRWAY INTO TRACHEA, VIA OPENING [id number] 04/27/18 INSERTION OF FEEDING DEVICE INTO STOMACH, ENDO [id number] 06/02/16 RESPIRATORY VENTILATION, GREATER THAN 96 CONSECUTIVE HOURS [id number] 04/27/18 [facility] MGMT INPAT INIT DAY 06/02/16 [facility] MGMT INPAT SUBQ DAY 06/02/16 Internal Medicine Assmt/Plan - Assessment Assessment: sepsis hematuria acute renal insufficiency vdrf myasthenia gravis acute on chronic respiratory failure dementia hx malignant melanoma acute uti - Plan Plan: [address] [place] with continuos irrigation monitor h/h closely follow up labs in am continue ivabx continue current plan of care Nutritional Asmnt/Malnutr-PDOC - Dietary Evaluation Malnutrition Findings (Please click <Entered> for more info): Nutritional Asmnt/Malnutrition Start: 07/19/18 15: 57 Text: Status: Complete Freq: Protocol: Document 07/19/18 15:57 HANS (Rec: 07/19/18 16:06 [email or web address] [id number]) Nutritional Asmnt/Malnutrition Patient General Information Nutritional Screening High Risk Diagnosis sepsis, hematuria, resp failure Pertinent Medical Hx/Surgical Hx HTN, DM, CHF, Asthma/COPD, dysphagia, anxiety, hypothyroidism, dry eye, depression, vent dependecy, oarticvalve stenosis, iron def anemia, PEG/Gtube, trach Subjective Information Pt seen lying in bed at time of visit on vent via trach, awake, nonverbal. Per RN, pt tolerated TF well. Current Diet Order/ Nutrition Support glucerna 1.2 70ml/hr x 20hr Pertinent Medications vit C, colace, iron, novolog, culturelle, synthroid, theragran, protonix, nacl 0.9% , nacl tab, piperacillin Pertinent Labs 07/19 K 3.1, BUN 84 (trending down), glucose 163, POC 135- 148 07/18 Na 132, Cl 94, BUN 120, Cr 1.9, glucose 153 Nutritional Hx/Data Height 5 ft 6 in Height (Calculated Centimeters) 167.6 Current Weight (lbs) 150 lb Weight (Calculated Kilograms) 68.0 Weight (Calculated Grams) 99270.9 [place] Body Weight 142 Body Mass Index (BMI) 24.2 Weight Status Approriate GI Symptoms GI Symptoms None Last BM 07/19 Difficult in: None Skin Integrity/Comment: no skin problem noted per russell ROJAS Estimated Nutritional Goals BEE in Kcals: Using Current wt Calories/Kcals/Kg 25-30 Kcals Calculated [id number] Protein: Using Current wt Protein g/k-1.2 monitor renal labs Protein Calculated 68-82 Fluid: ml 1700-2040ml (1m/kcal) Nutritional Problem 1. Problem Problem altered nutiriton related labs Etiology renal dysfunction and hx of DM Signs/Symptoms: BUN 84-120, glucose 163, POC 135-148 Malnutrition Alert Is there a minimum of two criteria No selected? Query Text:Check all the applicable criteria. A minimum of two criteria are recommended for diagnosis of either severe or non-severe malnutrition. Malnutrition Related to Morbid Obesity Malnutrition related to morbid obesity No Intervention/Recommendation Comments 1. Continue with current TF regimen Glucerna 1.2 70ml/hr x 20hr. It provides 1680kcal, 84g protein, 1127ml free water , meeting 100% of nutritional needs 2. Monitor TF rate, tolerance, wt, skin integrity and labs 3. F/U as high risk in 2-3 days, 07/21-07/22 Expected Outcomes/Goals Expected Outcomes/Goals 1. Pt to meet at least 75% of nutritional needs via nutrition support with tolerance 2. Wt stability, skin to remain intact, labs to approach WNL.
[2018-07-21] MEDS: INSULIN ASPART, RECOMBINANT 100 UNITS/ML SUBQ SCH ×4 (00:04→17:22)
[2018-07-21] MEDS: Albuterol/Ipratropium Neb 3 ML AERS HHN SCH ×4 (00:22→19:08)
[2018-07-21 05:10] LABS: % BASOPHILS 0.4 % (0.0-2.0); % EOSINOPHILS 5.7 % (0.0-5.0); % LYMPHOCYTES 7.7 % (20.0-50.0); % MONOCYTES 4.9 % (2.0-10.0); % NEUTROPHILS 81.3 % (40.0-80.0); BASOPHILE ABSOLUTE 0.1 Th/cumm (0-0.2); EOSINOPHILE ABSOLUTE 0.7 Th/cmm (0.1-0.4); HEMOGLOBIN 9.6 gm/dL (12-16); MEAN CELL VOLUME 92.2 fl (80-99); MEAN CORPUSCULAR HEMOGLOBIN 31.5 pg (27.0-31.0); MEAN CORPUSCULAR HGB CONC 34.2 pg (28.0-36.0); MEAN PLATELET VOLUME 9.1 fl; MONOCYTE ABSOLUTE 0.6 Th/cmm (0.3-1.0); NEUTROPHILE ABSOLUTE 10.5 Th/cmm (1.8-8.0); PLATELET COUNT 238 Th/cmm (150-400); RED BLOOD COUNT 3.04 Mil/cmm (3.80-5.80); RED CELL DISTRIBUTION WIDTH 13.1 % (11.5-20.0)
[2018-07-21 05:28] LABS: WHITE BLOOD COUNT 12.9 Th/cmm (4.8-10.8)
[2018-07-21 05:41] LABS: ANION GAP 11.4 (7.0-16.0); BUN - UREA NITROGEN 34 mg/dL (7-25); CALCIUM SERUM 8.4 mg/dL (8.6-10.3); CARBON DIOXIDE 19.9 mEq/L (21.0-31.0); CHLORIDE 118 mEq/L (98-107); CREATININE - SERUM 0.7 mg/dL (0.7-1.3); GLUCOSE 114 mg/dL (70-105); POTASSIUM SERUM 3.3 mEq/L (3.5-5.1); SODIUM SERUM 146 mEq/L (136-145)
[2018-07-21] MEDS: Pantoprazole 40 mg/Packet GT SCH (06:39)
[2018-07-21] MEDS: Levothyroxine 0.025 Mg Tab GT SCH (06:39)
[2018-07-21] MEDS: Albuterol Nebulizer 2.5mg/3mL HHN SCH ×3 (06:46→14:41)
[2018-07-21] MEDS: Ipratropium Neb 0.5 mg/2.5 mL UD HHN SCH ×4 (06:47→14:41)
[2018-07-21] MEDS: Docusate Sodium 100 mg/10 mL UD GT SCH (08:20)
[2018-07-21] MEDS: Multivitamin Tab GT SCH (08:20)
[2018-07-21] MEDS: Ferrous Sulfate 300 MG/5 ML UDC GT SCH ×2 (08:20→16:24)
[2018-07-21] MEDS: Lactobacillus Rhamnosus GG 15 Billion CFU CAP.SPRINK PO SCH (08:20)
[2018-07-21] MEDS: Polyvinyl Alcohol Ophth Soln 15 mL Bottle EACH EYE SCH ×2 (08:21→16:24)
--- NOTE | 2018-07-21 16:25 | Internal Medicine Prog Note ---
Internal Medicine Subjective - Subjective Service Date: 07/21/18 (still with hematuria ) Patient is:: awake, non-verbal Patient Complaints of:: other (hematuria) Per staff patient has:: tolerating meds Internal Medicine Objective - Results Result Diagrams: 07/21/18 04:45 07/21/18 04:45 Recent Labs: Laboratory Last Values WBC 12.9 Th/cmm (4.8-10.8) H D 07/21/18 04:45 RBC 3.04 Mil/cmm (3.80-5.80) L 07/21/18 04:45 Hgb 9.6 gm/dL (12-16) L 07/21/18 04:45 Hct 28.0 % (41.0-60) L 07/21/18 04:45 MCV 92.2 fl (80-99) 07/21/18 04:45 MCH 31.5 pg (27.0-31.0) H 07/21/18 04:45 MCHC Differential 34.2 pg (28.0-36.0) 07/21/18 04:45 RDW 13.1 % (11.5-20.0) 07/21/18 04:45 Plt Count 238 Th/cmm (150-400) 07/21/18 04:45 MPV 9.1 fl 07/21/18 04:45 Add Manual Diff YES 07/20/18 04:50 Neutrophils % 81.3 % (40.0-80.0) H 07/21/18 04:45 Band Neutrophils % 3 % (0-10) 07/20/18 04:50 Lymphocytes % 7.7 % (20.0-50.0) L 07/21/18 04:45 Monocytes % 4.9 % (2.0-10.0) 07/21/18 04:45 Eosinophils % 5.7 % (0.0-5.0) H 07/21/18 04:45 Basophils % 0.4 % (0.0-2.0) 07/21/18 04:45 Neutrophils (Manual) Not Reportable 07/21/18 04:45 Lymphocytes 5 % (20-50) L 07/20/18 04:50 Monocytes 6 % (2-10) 07/20/18 04:50 Eosinophils 1 % (0-5) 07/19/18 08:48 Basophils 0 % (0-3) 07/19/18 08:48 Platelet Estimate ADEQUATE (NORMAL) 07/20/18 04:50 Platelet Morphology NORMAL (NORMAL) 07/18/18 15:00 RBC Morph Micro Appear NORMAL (NORMAL) 07/18/18 15:00 Sodium 146 mEq/L (136-145) H 07/21/18 04:45 Potassium 3.3 mEq/L (3.5-5.1) L 07/21/18 04:45 Chloride 118 mEq/L (98-107) H 07/21/18 04:45 Carbon Dioxide 19.9 mEq/L (21.0-31.0) L 07/21/18 04:45 Anion Gap 11.4 (7.0-16.0) 07/21/18 04:45 BUN 34 mg/dL (7-25) H 07/21/18 04:45 Creatinine 0.7 mg/dL (0.7-1.3) 07/21/18 04:45 Est GFR ( Amer) TNP 07/21/18 04:45 Est GFR (Non-Af Amer) TNP 07/21/18 04:45 BUN/Creatinine Ratio 48.6 07/21/18 04:45 Glucose 114 mg/dL (70-105) H 07/21/18 04:45 POC Glucose 131 MG/DL (70 - 105) H 07/21/18 11:45 Whole Bld Lactic Acid 1.79 mmol/L (0.60-1.99) 07/18/18 15:00 Calcium 8.4 mg/dL (8.6-10.3) L 07/21/18 04:45 Magnesium 2.2 mg/dL (1.9-2.7) 07/20/18 04:50 Total Bilirubin 0.4 mg/dL (0.3-1.0) 07/20/18 04:50 AST 26 U/L (13-39) 07/20/18 04:50 ALT 22 U/L (7-52) 07/20/18 04:50 Alkaline Phosphatase 174 U/L (34-104) H 07/20/18 04:50 B-Natriuretic Peptide 575.0 pg/mL (5.0-100.0) H 07/20/18 04:50 Total Protein 5.9 gm/dL (6.0-8.3) L 07/20/18 04:50 Albumin 2.4 gm/dL (4.2-5.5) L 07/20/18 04:50 Globulin 3.5 gm/dL 07/20/18 04:50 Albumin/Globulin Ratio 0.7 (1.0-1.8) L 07/20/18 04:50 Lipase 85 U/L (11-82) H 07/18/18 15:00 TSH 2.52 uIU/ml (0.34-5.60) 07/20/18 04:50 Urine Source [place] 07/18/18 15:15 Urine Color RED 07/18/18 15:15 Urine Clarity HAZY (CLEAR) 07/18/18 15:15 Urine pH 8.5 (4.6 - 8.0) 07/18/18 15:15 Ur Specific [place] 1.010 (1.005-1.030) 07/18/18 15:15 Urine Protein >300 mg/dL (NEGATIVE) H 07/18/18 15:15 Urine Glucose (UA) NEGATIVE mg/dL (NEGATIVE) 07/18/18 15:15 Urine Ketones NEGATIVE mg/dL (NEGATIVE) 07/18/18 15:15 Urine Blood LARGE (NEGATIVE) H 07/18/18 15:15 Urine Nitrate POSITIVE (NEGATIVE) H 07/18/18 15:15 Urine Bilirubin SMALL (NEGATIVE) H 07/18/18 15:15 Urine Urobilinogen 0.2 E.U./dL (0.2 - 1.0) 07/18/18 15:15 Ur Leukocyte Esterase MODERATE (NEGATIVE) H 07/18/18 15:15 Urine RBC 50-100 /hpf (0-5) H 07/18/18 15:15 Urine WBC 50-100 /hpf (0-5) H 07/18/18 15:15 Ur Epithelial Cells NONE SEEN /lpf (FEW) 07/18/18 15:15 Urine Bacteria FEW /hpf (NONE SEEN) 07/18/18 15:15 - Physical Exam Vitals and I&O: Vital Signs Temp 98.8 F 07/21/18 12:00 Pulse 64 07/21/18 15:00 Resp 18 07/21/18 15:00 BP 111/59 07/21/18 15:00 Pulse Ox 100 07/21/18 15:00 Intake & Output 07/20/18 07/21/18 07/21/18 18:59 06:59 18:59 Intake Total 4190 1260 250 Output Total 3200 2101 Balance 990 -841 250 Weight (lbs) 155 lb 9 oz 156 lb Intake: Intake, IV Amount 350 100 250 Piperacillin Sodium/ 100 100 Tazobact 2.25 gm In Sodium Chloride 0.9% 50 ml @ 100 mls/hr IV Q8HR [facility] Rx#:[id number] Vancomycin HCl 1 gm In 250 250 Sodium Chloride 0.9% 250 ml @ 165 mls/hr IV Q24HR@ 0900 [facility] Rx#:[id number] Tube Feeding 840 560 Other 3000 600 Output: Urine 3200 2100 Stool 1 Other: # Bowel Movements 1 Stool Characteristics Formed Liquid Brown Brown Weight Source Bedscale Bedscale Active Medications: Current Medications Acetaminophen (Tylenol) 650 mg GT Q6HR PRN PRN Reason: Pain or Fever >101 Stop: 09/16/18 18:45 Last Admin: 07/21/18 12:59 Dose: 650 mg Acetaminophen (Tylenol) 650 mg PO Q4H PRN PRN Reason: Pain Or Fever above 101 Stop: 09/16/18 18:47 Acetaminophen/Hydrocodone Bitart ([place] 5mg/325mg) 1 tab GT Q8H PRN PRN Reason: MODERATE/SEVERE PAIN Stop: 09/16/18 18:45 Last Admin: 07/20/18 09:24 Dose: 1 tab Albuterol Sulfate (Albuterol 2.5mg/3ml Neb Ud) 2.5 mg HHN QIDRT [facility] Stop: 09/16/18 18:59 Last Admin: 07/21/18 14:41 Dose: Not Given Albuterol/Ipratropium (Duoneb Neb) 3 ml HHN Q6HR [facility] Stop: 09/17/18 00:00 Last Admin: 07/21/18 12:17 Dose: 3 ml Artificial Tears (Artificial Tears Ophth Soln) 1 drop EACH EYE BID [facility] Stop: 09/17/18 16:59 Last Admin: 07/21/18 08:21 Dose: 1 drop Ascorbic Acid (Vitamin C) 500 mg GT DAILY [facility] Stop: 09/17/18 08:59 Last Admin: 07/21/18 08:20 Dose: 500 mg Chlorhexidine Gluconate (Peridex) 15 ml MM 799,1999 [facility] Stop: 09/19/18 19:59 Docusate Sodium (Colace) 100 mg GT DAILY [facility] Stop: 09/17/18 08:59 Last Admin: 07/21/18 08:20 Dose: 100 mg Ferrous Sulfate (Iron) 300 mg GT BID [facility] Stop: 09/17/18 08:59 Last Admin: 07/21/18 08:20 Dose: 300 mg Guaifenesin (Robitussin) 200 mg GT Q4HR PRN PRN Reason: Cough Stop: 09/16/18 18:45 Heparin Sodium (Porcine) (Heparin) 5,000 units SUBQ Q12HR [facility] Stop: 09/16/18 20:59 Last Admin: 07/21/18 09:51 Dose: Not Given Sodium Chloride (Nacl 0.9%) 1,000 mls @ 100 mls/hr IV .Q10H [facility] Stop: 09/16/18 18:59 Last Admin: 07/18/18 20:52 Dose: 100 mls/hr Piperacillin Sod/Tazobactam (Sod 2.25 gm/ Sodium Chloride) 50 mls @ 100 mls/hr IV Q8HR [facility] Stop: 09/16/18 20:59 Last Admin: 07/21/18 12:57 Dose: 100 mls/hr Norepinephrine Bitartrate 4 mg (/ Dextrose) 254 mls @ 0 mls/hr IV TITR PRN; Protocol PRN Reason: BP MAINTENANCE (PER PROTOCOL) Stop: 09/16/18 22:19 Last Titration: 07/19/18 21:40 Dose: 0 mcg/min, 0 mls/hr Vancomycin HCl 1 gm/ Sodium (Chloride) 250 mls @ 165 mls/hr IV Q24HR@0900 [facility] Stop: 09/18/18 08:59 Last Infusion: 07/21/18 09:55 Dose: Infused Insulin Aspart (Novolog) 0 units SUBQ Q6HR [facility]; Protocol Stop: 09/18/18 11:59 Last Admin: 07/21/18 11:52 Dose: Not Given Ipratropium [place] (Atrovent Neb 0.5mg/2.5ml) 0.5 mg HHN QIDRT [facility] Stop: 09/16/18 18:59 Last Admin: 07/21/18 14:41 Dose: Not Given Lactobacillus Rhamnosus (Culturelle 15b) 1 each PO DAILY [facility] Stop: 09/18/18 08:59 Last Admin: 07/21/18 08:20 Dose: 1 each Levothyroxine Sodium (Synthroid) 0.025 mg GT QDAC [facility] Stop: 09/17/18 07:29 Last Admin: 07/21/18 06:39 Dose: 0.025 mg Lorazepam (Ativan) 0.5 mg GT Q6H PRN; Protocol PRN Reason: Anxiety Stop: 09/16/18 18:45 Last Admin: 07/19/18 16:30 Dose: 0.5 mg Midodrine (Proamatine) 5 mg GT Q8H [facility] Stop: 09/16/18 11:59 Last Admin: 07/21/18 11:41 Dose: 5 mg Miscellaneous (Vancomycin Iv Per Pharmacy) 1 ea PRN [facility] Stop: 09/16/18 18:59 Miscellaneous (Probiotic Screen) 1 [facility] PRN PRN PRN Reason: PROTOCOL Stop: 09/17/18 10:57 Morphine Sulfate (Morphine) 1 mg IVP Q4HR PRN PRN Reason: Pain (Moderate) Stop: 09/18/18 13:13 Last Admin: 07/20/18 14:35 Dose: 1 mg Multivitamins/Vitamin C (Theragran) 1 tab GT DAILY [facility] Stop: 09/17/18 08:59 Last Admin: 07/21/18 08:20 Dose: 1 tab Pantoprazole Sodium (Protonix) 40 mg GT QDAC [facility] Stop: 09/17/18 07:29 Last Admin: 07/21/18 06:39 Dose: 40 mg Paroxetine HCl (Paxil) 20 mg GT DAILY [facility]; Protocol Stop: 09/17/18 08:59 Last Admin: 07/21/18 08:20 Dose: 20 mg Pyridostigmine [place] (Mestinon) 60 mg GT Q12H [facility] Stop: 09/16/18 19:59 Last Admin: 07/21/18 10:38 Dose: Not Given Sodium Chloride (Nacl Tab) 1 gm GT BID [facility] Stop: 09/17/18 08:59 Last Admin: 07/21/18 16:19 Dose: Not Given General: weak, alert HEENT: NC/AT, PERRLA Neck: Supple Lungs: ronchi Cardiovascular: RRR, Normal S1, Normal S2, without murmur Abdomen: soft, non-tender, non-distended, positive bowel sound Extremities: excoriation Neurological: alert, unable to follow command - Procedures Procedures: Procedures Procedure Code Date EGD PLACE GASTROSTOMY TUBE 08921 06/02/16 INSERTION OF ENDOTRACHEAL AIRWAY INTO TRACHEA, VIA OPENING [id number] 04/27/18 INSERTION OF FEEDING DEVICE INTO STOMACH, ENDO [id number] 06/02/16 RESPIRATORY VENTILATION, GREATER THAN 96 CONSECUTIVE HOURS [id number] 04/27/18 VENT MGMT INPAT INIT DAY 06/02/16 VENT MGMT INPAT SUBQ DAY 06/02/16 Internal Medicine Assmt/Plan - Assessment Assessment: sepsis Proteus Mirabilis ESBL grew in blood culture hematuria acute renal insufficiency vdrf myasthenia gravis acute on chronic respiratory failure dementia hx malignant melanoma acute uti - Plan Plan: continue with zosyn and vanco continue with CBI dc heparin and nacl tabs renal u/s to be ordered may need LTAC eval monitor h/h closely follow up labs in am continue current plan of care Nutritional Asmnt/Malnutr-PDOC - Dietary Evaluation Malnutrition Findings (Please click <Entered> for more info): Nutritional Asmnt/Malnutrition Start: 07/19/18 15: 57 Text: Status: Complete Freq: Protocol: Document 07/19/18 15:57 LCHENG (Rec: 07/19/18 16:06 [email or web address] [id number]) Nutritional Asmnt/Malnutrition Patient General Information Nutritional Screening High Risk Diagnosis sepsis, hematuria, resp failure Pertinent Medical Hx/Surgical Hx HTN, DM, CHF, Asthma/COPD, dysphagia, anxiety, hypothyroidism, dry eye, depression, vent dependecy, oarticvalve stenosis, iron def anemia, PEG/Gtube, trach Subjective Information Pt seen lying in bed at time of visit on vent via trach, awake, nonverbal. Per RN, pt tolerated TF well. Current Diet Order/ Nutrition Support glucerna 1.2 70ml/hr x 20hr Pertinent Medications vit C, colace, iron, novolog, culturelle, synthroid, theragran, protonix, nacl 0.9% , nacl tab, piperacillin Pertinent Labs 07/19 K 3.1, BUN 84 (trending down), glucose 163, POC 135- 148 07/18 Na 132, Cl 94, BUN 120, Cr 1.9, glucose 153 Nutritional Hx/Data Height 5 ft 6 in Height (Calculated Centimeters) 167.6 Current Weight (lbs) 150 lb Weight (Calculated Kilograms) 68.0 Weight (Calculated Grams) 26018.9 [place] Body Weight 142 Body Mass Index (BMI) 24.2 Weight Status Approriate GI Symptoms GI Symptoms None Last BM 07/19 Difficult in: None Skin Integrity/Comment: no skin problem noted per EMR, russell Felder Estimated Nutritional Goals BEE in Kcals: Using Current wt Calories/Kcals/Kg 25-30 Kcals Calculated 8480-1981 Protein: Using Current wt Protein g/k-1.2 monitor renal labs Protein Calculated 68-82 Fluid: ml 1700-2040ml (1m/kcal) Nutritional Problem 1. Problem Problem altered nutiriton related labs Etiology renal dysfunction and hx of DM Signs/Symptoms: BUN 84-120, glucose 163, POC 135-148 Malnutrition Alert Is there a minimum of two criteria No selected? Query Text:Check all the applicable criteria. A minimum of two criteria are recommended for diagnosis of either severe or non-severe malnutrition. Malnutrition Related to Morbid Obesity Malnutrition related to morbid obesity No Intervention/Recommendation Comments 1. Continue with current TF regimen Glucerna 1.2 70ml/hr x 20hr. It provides 1680kcal, 84g protein, 1127ml free water , meeting 100% of nutritional needs 2. Monitor TF rate, tolerance, wt, skin integrity and labs 3. F/U as high risk in 2-3 days, 07/21-07/22 Expected Outcomes/Goals Expected Outcomes/Goals 1. Pt to meet at least 75% of nutritional needs via nutrition support with tolerance 2. Wt stability, skin to remain intact, labs to approach WNL.
[2018-07-21] MEDS: D5-0.45NS 1,000 ML IV SCH (16:53)
[2018-07-21] MEDS ORDERED: Potassium Chloride Elixir 20 mEq /15 mL UDC GT ONE (20:00)
[2018-07-21] MEDS: Chlorhexidine Gluconate 0.12% 15mL Mouthwash MM SCH (20:51)
[2018-07-22] MEDS: Albuterol/Ipratropium Neb 3 ML AERS HHN SCH ×4 (00:30→19:23)
[2018-07-22] MEDS: INSULIN ASPART, RECOMBINANT 100 UNITS/ML SUBQ SCH ×4 (00:31→18:04)
[2018-07-22] MEDS: D5-0.45NS 1,000 ML IV SCH ×2 (03:00→12:57)
[2018-07-22] MEDS: Levothyroxine 0.025 Mg Tab GT SCH (06:41)
[2018-07-22] MEDS: Pantoprazole 40 mg/Packet GT SCH (06:41)
[2018-07-22 07:14] LABS: % BASOPHILS 0.3 % (0.0-2.0); % EOSINOPHILS 10.5 % (0.0-5.0); % LYMPHOCYTES 8.8 % (20.0-50.0); % NEUTROPHILS 76.4 % (40.0-80.0); EOSINOPHILE ABSOLUTE 1.4 Th/cmm (0.1-0.4); HEMATOCRIT 26.8 % (41.0-60); LYMPHOCYTE ABSOLUTE 1.2 Th/cmm (1.5-3.0); MEAN CELL VOLUME 92.2 fl (80-99); MEAN CORPUSCULAR HGB CONC 33.6 pg (28.0-36.0); MEAN PLATELET VOLUME 9.1 fl; MONOCYTE ABSOLUTE 0.5 Th/cmm (0.3-1.0); NEUTROPHILE ABSOLUTE 10.4 Th/cmm (1.8-8.0); PLATELET COUNT 246 Th/cmm (150-400); RED BLOOD COUNT 2.91 Mil/cmm (3.80-5.80); WHITE BLOOD COUNT 13.5 Th/cmm (4.8-10.8)
[2018-07-22] MEDS: Ipratropium Neb 0.5 mg/2.5 mL UD HHN SCH (07:20)
[2018-07-22] MEDS: Albuterol Nebulizer 2.5mg/3mL HHN SCH (07:20)
[2018-07-22 07:22] LABS: ANION GAP 10.7 (7.0-16.0); BUN - UREA NITROGEN 26 mg/dL (7-25); CALCIUM SERUM 8.3 mg/dL (8.6-10.3); CARBON DIOXIDE 19.1 mEq/L (21.0-31.0); CHLORIDE 117 mEq/L (98-107); CREATININE - SERUM 0.6 mg/dL (0.7-1.3); GLUCOSE 131 mg/dL (70-105); POTASSIUM SERUM 3.8 mEq/L (3.5-5.1); SODIUM SERUM 143 mEq/L (136-145)
[2018-07-22] MEDS: Multivitamin Tab GT SCH (08:52)
[2018-07-22] MEDS: Ferrous Sulfate 300 MG/5 ML UDC GT SCH ×2 (08:52→16:43)
[2018-07-22] MEDS: Lactobacillus Rhamnosus GG 15 Billion CFU CAP.SPRINK PO SCH (08:52)
[2018-07-22] MEDS: Polyvinyl Alcohol Ophth Soln 15 mL Bottle EACH EYE SCH ×2 (08:56→16:44)
[2018-07-22] MEDS: Chlorhexidine Gluconate 0.12% 15mL Mouthwash MM SCH ×2 (08:56→20:56)
[2018-07-22] MEDS: Hydrocodone/APAP 5mg/325mg Tab GT PRN (09:02)
[2018-07-22] MEDS: Docusate Sodium 100 mg/10 mL UD GT SCH (11:38)
--- NOTE | 2018-07-22 11:54 | Internal Medicine Prog Note ---
Internal Medicine Subjective - Subjective Service Date: 07/22/18 Patient is:: awake, non-verbal Patient Complaints of:: other Per staff patient has:: tolerating meds Internal Medicine Objective - Results Result Diagrams: 07/22/18 07:00 07/22/18 07:00 Recent Labs: Laboratory Last Values WBC 13.5 Th/cmm (4.8-10.8) H 07/22/18 07:00 RBC 2.91 Mil/cmm (3.80-5.80) L 07/22/18 07:00 Hgb 9.0 gm/dL (12-16) L 07/22/18 07:00 Hct 26.8 % (41.0-60) L 07/22/18 07:00 MCV 92.2 fl (80-99) 07/22/18 07:00 MCH 31.0 pg (27.0-31.0) 07/22/18 07:00 MCHC Differential 33.6 pg (28.0-36.0) 07/22/18 07:00 RDW 13.0 % (11.5-20.0) 07/22/18 07:00 Plt Count 246 Th/cmm (150-400) 07/22/18 07:00 MPV 9.1 fl 07/22/18 07:00 Add Manual Diff YES 07/20/18 04:50 Neutrophils % 76.4 % (40.0-80.0) 07/22/18 07:00 Band Neutrophils % 3 % (0-10) 07/20/18 04:50 Lymphocytes % 8.8 % (20.0-50.0) L 07/22/18 07:00 Monocytes % 4.0 % (2.0-10.0) 07/22/18 07:00 Eosinophils % 10.5 % (0.0-5.0) H 07/22/18 07:00 Basophils % 0.3 % (0.0-2.0) 07/22/18 07:00 Neutrophils (Manual) Not Reportable 07/21/18 04:45 Lymphocytes 5 % (20-50) L 07/20/18 04:50 Monocytes 6 % (2-10) 07/20/18 04:50 Eosinophils 1 % (0-5) 07/19/18 08:48 Basophils 0 % (0-3) 07/19/18 08:48 Platelet Estimate ADEQUATE (NORMAL) 07/20/18 04:50 Platelet Morphology NORMAL (NORMAL) 07/18/18 15:00 RBC Morph Micro Appear NORMAL (NORMAL) 07/18/18 15:00 Sodium 143 mEq/L (136-145) 07/22/18 07:00 Potassium 3.8 mEq/L (3.5-5.1) 07/22/18 07:00 Chloride 117 mEq/L (98-107) H 07/22/18 07:00 Carbon Dioxide 19.1 mEq/L (21.0-31.0) L 07/22/18 07:00 Anion Gap 10.7 (7.0-16.0) 07/22/18 07:00 BUN 26 mg/dL (7-25) H 07/22/18 07:00 Creatinine 0.6 mg/dL (0.7-1.3) L 07/22/18 07:00 Est GFR ( Amer) TNP 07/22/18 07:00 Est GFR (Non-Af Amer) TNP 07/22/18 07:00 BUN/Creatinine Ratio 43.3 07/22/18 07:00 Glucose 131 mg/dL (70-105) H 07/22/18 07:00 POC Glucose 125 MG/DL (70 - 105) H 07/22/18 06:39 Whole Bld Lactic Acid 1.79 mmol/L (0.60-1.99) 07/18/18 15:00 Calcium 8.3 mg/dL (8.6-10.3) L 07/22/18 07:00 Magnesium 2.2 mg/dL (1.9-2.7) 07/20/18 04:50 Total Bilirubin 0.4 mg/dL (0.3-1.0) 07/20/18 04:50 AST 26 U/L (13-39) 07/20/18 04:50 ALT 22 U/L (7-52) 07/20/18 04:50 Alkaline Phosphatase 174 U/L (34-104) H 07/20/18 04:50 B-Natriuretic Peptide 575.0 pg/mL (5.0-100.0) H 07/20/18 04:50 Total Protein 5.9 gm/dL (6.0-8.3) L 07/20/18 04:50 Albumin 2.4 gm/dL (4.2-5.5) L 07/20/18 04:50 Globulin 3.5 gm/dL 07/20/18 04:50 Albumin/Globulin Ratio 0.7 (1.0-1.8) L 07/20/18 04:50 Lipase 85 U/L (11-82) H 07/18/18 15:00 TSH 2.52 uIU/ml (0.34-5.60) 07/20/18 04:50 Urine Source [place] 07/18/18 15:15 Urine Color RED 07/18/18 15:15 Urine Clarity HAZY (CLEAR) 07/18/18 15:15 Urine pH 8.5 (4.6 - 8.0) 07/18/18 15:15 Ur Specific [place] 1.010 (1.005-1.030) 07/18/18 15:15 Urine Protein >300 mg/dL (NEGATIVE) H 07/18/18 15:15 Urine Glucose (UA) NEGATIVE mg/dL (NEGATIVE) 07/18/18 15:15 Urine Ketones NEGATIVE mg/dL (NEGATIVE) 07/18/18 15:15 Urine Blood LARGE (NEGATIVE) H 07/18/18 15:15 Urine Nitrate POSITIVE (NEGATIVE) H 07/18/18 15:15 Urine Bilirubin SMALL (NEGATIVE) H 07/18/18 15:15 Urine Urobilinogen 0.2 E.U./dL (0.2 - 1.0) 07/18/18 15:15 Ur Leukocyte Esterase MODERATE (NEGATIVE) H 07/18/18 15:15 Urine RBC 50-100 /hpf (0-5) H 07/18/18 15:15 Urine WBC 50-100 /hpf (0-5) H 07/18/18 15:15 Ur Epithelial Cells NONE SEEN /lpf (FEW) 07/18/18 15:15 Urine Bacteria FEW /hpf (NONE SEEN) 07/18/18 15:15 Vancomycin Trough 11.7 ug/mL (5-10) H 07/22/18 07:00 - Physical Exam Vitals and I&O: Vital Signs Temp 97.5 F 07/22/18 08:00 Pulse 65 07/22/18 11:40 Resp 15 07/22/18 11:00 BP 116/58 07/22/18 11:00 Pulse Ox 100 07/22/18 11:40 Intake & Output 07/21/18 07/22/18 07/22/18 18:59 06:59 18:59 Intake Total 9955.858 9334 1410 Output Total 501 1652 Balance 5785.533 7569 -242 Weight (lbs) 156 lb 161 lb Intake: Intake, IV Amount 217.469 8401 250 D5-0.45NS 1,000 ml @ 100 1000 mls/hr IV .Q10H [facility] Rx#: [id number] Piperacillin Sodium/ 46.667 100 Tazobact 2.25 gm In Sodium Chloride 0.9% 50 ml @ 100 mls/hr IV Q8HR [facility] Rx#:[id number] Vancomycin HCl 1 gm In 250 250 Sodium Chloride 0.9% 250 ml @ 165 mls/hr IV Q24HR@ 0900 [facility] Rx#:[id number] Tube Feeding 840 560 Other 600 600 Output: Urine 500 1650 Stool 1 2 Other: Stool Characteristics Liquid Formed Brown Liquid Brown Weight Source Bedscale Bedscale Active Medications: Current Medications Acetaminophen (Tylenol 650mg/20.3ml Suspension) 650 mg GT Q4H PRN PRN Reason: Pain Or Fever above 101 Stop: 09/16/18 18:47 Acetaminophen/Hydrocodone Bitart ([place] 5mg/325mg) 1 tab GT Q8H PRN PRN Reason: MODERATE/SEVERE PAIN Stop: 09/16/18 18:45 Last Admin: 07/22/18 09:02 Dose: 1 tab Albuterol/Ipratropium (Duoneb Neb) 3 ml HHN Q6HRT [facility] Stop: 09/17/18 00:00 Artificial Tears (Artificial Tears Ophth Soln) 1 drop EACH EYE BID [facility] Stop: 09/17/18 16:59 Last Admin: 07/22/18 08:56 Dose: 1 drop Ascorbic Acid (Vitamin C) 500 mg GT DAILY [facility] Stop: 09/17/18 08:59 Last Admin: 07/22/18 08:52 Dose: 500 mg Chlorhexidine Gluconate (Peridex) 15 ml MM 08,1999 [facility] Stop: 09/19/18 19:59 Last Admin: 07/22/18 08:56 Dose: 15 ml Docusate Sodium (Colace) 100 mg GT DAILY [facility] Stop: 09/17/18 08:59 Last Admin: 07/22/18 11:38 Dose: Not Given Ferrous Sulfate (Iron) 300 mg GT BID [facility] Stop: 09/17/18 08:59 Last Admin: 07/22/18 08:52 Dose: 300 mg Guaifenesin (Robitussin) 200 mg GT Q4HR PRN PRN Reason: Cough Stop: 09/16/18 18:45 Piperacillin Sod/Tazobactam (Sod 2.25 gm/ Sodium Chloride) 50 mls @ 100 mls/hr IV Q8HR [facility] Stop: 09/16/18 20:59 Last Infusion: 07/22/18 05:20 Dose: Infused Norepinephrine Bitartrate 4 mg (/ Dextrose) 254 mls @ 0 mls/hr IV TITR PRN; Protocol PRN Reason: BP MAINTENANCE (PER PROTOCOL) Stop: 09/16/18 22:19 Last Titration: 07/19/18 21:40 Dose: 0 mcg/min, 0 mls/hr Vancomycin HCl 1 gm/ Sodium (Chloride) 250 mls @ 165 mls/hr IV Q24HR@0900 [facility] Stop: 07/22/18 12:00 Last Infusion: 07/22/18 10:20 Dose: Infused Dextrose/Sodium Chloride (D5-0.45ns) 1,000 mls @ 100 mls/hr IV .Q10H [facility] Stop: 09/19/18 16:29 Last Admin: 07/22/18 03:00 Dose: 100 mls/hr Vancomycin HCl 1.25 gm/ Sodium (Chloride) 250 mls @ 165 mls/hr IV Q24H [facility] Stop: 09/21/18 08:59 Insulin Aspart (Novolog) 0 units SUBQ Q6HR [facility]; Protocol Stop: 09/18/18 11:59 Last Admin: 07/22/18 06:42 Dose: Not Given Ipratropium [place] (Atrovent Neb 0.5mg/2.5ml) 0.5 mg HHN QIDRT [facility] Stop: 09/16/18 18:59 Last Admin: 07/22/18 07:20 Dose: Not Given Lactobacillus Rhamnosus (Culturelle 15b) 1 each PO DAILY [facility] Stop: 09/18/18 08:59 Last Admin: 07/22/18 08:52 Dose: 1 each Levothyroxine Sodium (Synthroid) 0.025 mg GT QDAC [facility] Stop: 09/17/18 07:29 Last Admin: 07/22/18 06:41 Dose: 0.025 mg Lorazepam (Ativan) 0.5 mg GT Q6H PRN; Protocol PRN Reason: Anxiety Stop: 09/16/18 18:45 Last Admin: 07/19/18 16:30 Dose: 0.5 mg Midodrine (Proamatine) 5 mg GT Q8H [facility] Stop: 09/16/18 11:59 Last Admin: 07/22/18 04:54 Dose: 5 mg Miscellaneous (Vancomycin Iv Per Pharmacy) 1 ea PRN [facility] Stop: 09/16/18 18:59 Miscellaneous (Probiotic Screen) 1 [facility] PRN PRN PRN Reason: PROTOCOL Stop: 09/17/18 10:57 Morphine Sulfate (Morphine) 1 mg IVP Q4HR PRN PRN Reason: Pain (Moderate) Stop: 09/18/18 13:13 Last Admin: 07/20/18 14:35 Dose: 1 mg Multivitamins/Vitamin C (Theragran) 1 tab GT DAILY [facility] Stop: 09/17/18 08:59 Last Admin: 07/22/18 08:52 Dose: 1 tab Mupirocin (Bactroban Oint) 1 appl NS BID [facility] Stop: 07/26/18 17:01 Last Admin: 07/22/18 08:56 Dose: 1 appl Pantoprazole Sodium (Protonix) 40 mg GT QDAC [facility] Stop: 09/17/18 07:29 Last Admin: 07/22/18 06:41 Dose: 40 mg Paroxetine HCl (Paxil) 20 mg GT DAILY [facility]; Protocol Stop: 09/17/18 08:59 Last Admin: 07/22/18 08:52 Dose: 20 mg Pyridostigmine [place] (Mestinon) 60 mg GT Q12H [facility] Stop: 09/16/18 19:59 Last Admin: 07/22/18 08:52 Dose: 60 mg General: weak, alert HEENT: NC/AT, PERRLA Neck: Supple Lungs: ronchi Cardiovascular: RRR, Normal S1, Normal S2, without murmur Abdomen: soft, non-tender, non-distended, positive bowel sound Extremities: excoriation Neurological: alert, unable to follow command Other physical findings: scrotal edema - Procedures Procedures: Procedures Procedure Code Date EGD PLACE GASTROSTOMY TUBE 96012 06/02/16 INSERTION OF ENDOTRACHEAL AIRWAY INTO TRACHEA, VIA OPENING [id number] 04/27/18 INSERTION OF FEEDING DEVICE INTO STOMACH, ENDO [id number] 06/02/16 RESPIRATORY VENTILATION, 24-96 CONSECUTIVE HOURS [id number] 07/18/18 RESPIRATORY VENTILATION, GREATER THAN 96 CONSECUTIVE HOURS [id number] 04/27/18 VENT MGMT INPAT INIT DAY 06/02/16 VENT MGMT INPAT SUBQ DAY 06/02/16 Internal Medicine Assmt/Plan - Assessment Assessment: sepsis Proteus Mirabilis ESBL grew in blood culture Acute UTI with proteus mirabilis MRSA nares hematuria-improved Scrotal edema Bilateral moderate hydronephrosis and renal cyst acute renal insufficiency VDRF myasthenia gravis acute on chronic respiratory failure dementia hx malignant melanoma hx prostate ca 2003 - Plan Plan: scrotal u/s today [facility] EVAL [facility] continue with zosyn and vanco continue with CBI dc heparin and nacl tabs monitor h/h closely follow up labs in am continue current plan of care Nutritional Asmnt/Malnutr-PDOC - Dietary Evaluation Malnutrition Findings (Please click <Entered> for more info): Nutritional Asmnt/Malnutrition Start: 07/19/18 15: 57 Text: Status: Complete Freq: Protocol: Document 07/19/18 15:57 LCHENG (Rec: 07/19/18 16:06 LCHENG [id number]) Nutritional Asmnt/Malnutrition Patient General Information Nutritional Screening High Risk Diagnosis sepsis, hematuria, resp failure Pertinent Medical Hx/Surgical Hx HTN, DM, CHF, Asthma/COPD, dysphagia, anxiety, hypothyroidism, dry eye, depression, vent dependecy, oarticvalve stenosis, iron def anemia, PEG/Gtube, trach Subjective Information Pt seen lying in bed at time of visit on vent via trach, awake, nonverbal. Per RN, pt tolerated TF well. Current Diet Order/ Nutrition Support glucerna 1.2 70ml/hr x 20hr Pertinent Medications vit C, colace, iron, novolog, culturelle, synthroid, theragran, protonix, nacl 0.9% , nacl tab, piperacillin Pertinent Labs 07/19 K 3.1, BUN 84 (trending down), glucose 163, POC 135- 148 07/18 Na 132, Cl 94, BUN 120, Cr 1.9, glucose 153 Nutritional Hx/Data Height 5 ft 6 in Height (Calculated Centimeters) 167.6 Current Weight (lbs) 150 lb Weight (Calculated Kilograms) 68.0 Weight (Calculated Grams) 81061.9 [place] Body Weight 142 Body Mass Index (BMI) 24.2 Weight Status Approriate GI Symptoms GI Symptoms None Last BM 07/19 Difficult in: None Skin Integrity/Comment: no skin problem noted per EMR, russell Felder Estimated Nutritional Goals BEE in Kcals: Using Current wt Calories/Kcals/Kg 25-30 Kcals Calculated 2777-9216 Protein: Using Current wt Protein g/k-1.2 monitor renal labs Protein Calculated 68-82 Fluid: ml 1700-2040ml (1m/kcal) Nutritional Problem 1. Problem Problem altered nutiriton related labs Etiology renal dysfunction and hx of DM Signs/Symptoms: BUN 84-120, glucose 163, POC 135-148 Malnutrition Alert Is there a minimum of two criteria No selected? Query Text:Check all the applicable criteria. A minimum of two criteria are recommended for diagnosis of either severe or non-severe malnutrition. Malnutrition Related to Morbid Obesity Malnutrition related to morbid obesity No Intervention/Recommendation Comments 1. Continue with current TF regimen Glucerna 1.2 70ml/hr x 20hr. It provides 1680kcal, 84g protein, 1127ml free water , meeting 100% of nutritional needs 2. Monitor TF rate, tolerance, wt, skin integrity and labs 3. F/U as high risk in 2-3 days, 07/21-07/22 Expected Outcomes/Goals Expected Outcomes/Goals 1. Pt to meet at least 75% of nutritional needs via nutrition support with tolerance 2. Wt stability, skin to remain intact, labs to approach WNL.
--- NOTE | 2018-07-22 12:13 | Diagnostic Imaging Report ---
Exam: Ultrasound of the kidneys. HISTORY: Abnormal renal function tests Findings: Real-time ultrasound examination of the kidneys performed multiple planes. The study demonstrates bilateral moderate hydronephrosis. There is evidence of bilateral renal cysts. Right renal cyst measures the 1 cm diameter Left renal cyst measuring 1.8 cm diameter The overall diameter right kidney is 10.9 x 6.1 x 6.2 cm The left kidney overall diameter is 11.8 x 6.4 x 6.3 cm diameter. Urinary bladder contains Daly catheter. IMPRESSION: Bilateral moderate hydronephrosis. Bilateral small renal cysts.
[2018-07-23] MEDS: Albuterol/Ipratropium Neb 3 ML AERS HHN SCH ×4 (00:23→18:53)
[2018-07-23] MEDS: INSULIN ASPART, RECOMBINANT 100 UNITS/ML SUBQ SCH ×3 (00:26→11:50)
[2018-07-23 04:36] LABS: % BASOPHILS 0.3 % (0.0-2.0); % EOSINOPHILS 10.9 % (0.0-5.0); % LYMPHOCYTES 11.9 % (20.0-50.0); % NEUTROPHILS 72.9 % (40.0-80.0); EOSINOPHILE ABSOLUTE 1.3 Th/cmm (0.1-0.4); HEMATOCRIT 26.5 % (41.0-60); HEMOGLOBIN 9.1 gm/dL (12-16); LYMPHOCYTE ABSOLUTE 1.4 Th/cmm (1.5-3.0); MEAN CELL VOLUME 91.6 fl (80-99); MEAN CORPUSCULAR HEMOGLOBIN 31.4 pg (27.0-31.0); MEAN CORPUSCULAR HGB CONC 34.3 pg (28.0-36.0); MEAN PLATELET VOLUME 8.4 fl; MONOCYTE ABSOLUTE 0.5 Th/cmm (0.3-1.0); NEUTROPHILE ABSOLUTE 8.6 Th/cmm (1.8-8.0); PLATELET COUNT 241 Th/cmm (150-400); RED BLOOD COUNT 2.89 Mil/cmm (3.80-5.80); RED CELL DISTRIBUTION WIDTH 12.7 % (11.5-20.0); WHITE BLOOD COUNT 11.8 Th/cmm (4.8-10.8)
[2018-07-23 05:13] LABS: ANION GAP 10.3 (7.0-16.0); BUN - UREA NITROGEN 22 mg/dL (7-25); CALCIUM SERUM 8.3 mg/dL (8.6-10.3); CARBON DIOXIDE 20.5 mEq/L (21.0-31.0); CHLORIDE 111 mEq/L (98-107); CREATININE - SERUM 0.6 mg/dL (0.7-1.3); GLUCOSE 97 mg/dL (70-105); POTASSIUM SERUM 3.8 mEq/L (3.5-5.1); SODIUM SERUM 138 mEq/L (136-145)
[2018-07-23] MEDS: D5-0.45NS 1,000 ML IV SCH (05:44)
[2018-07-23] MEDS: Levothyroxine 0.025 Mg Tab GT SCH (07:38)
[2018-07-23] MEDS: Ferrous Sulfate 300 MG/5 ML UDC GT SCH ×2 (08:12→16:15)
[2018-07-23] MEDS: Docusate Sodium 100 mg/10 mL UD GT SCH (08:12)
[2018-07-23] MEDS: Lactobacillus Rhamnosus GG 15 Billion CFU CAP.SPRINK PO SCH (08:12)
[2018-07-23] MEDS: Multivitamin Tab GT SCH (08:12)
[2018-07-23] MEDS: Pantoprazole 40 mg/Packet GT SCH (08:12)
[2018-07-23] MEDS: Polyvinyl Alcohol Ophth Soln 15 mL Bottle EACH EYE SCH ×2 (08:13→16:15)
[2018-07-23] MEDS: Chlorhexidine Gluconate 0.12% 15mL Mouthwash MM SCH ×2 (08:13→19:59)
--- NOTE | 2018-07-23 08:43 | Diagnostic Imaging Report ---
Testicular/scrotal ultrasound HISTORY: Swelling Right testis measures 4.0 x 2.4 x 2.6 cm. No focal parenchymal lesions. Normal testicular vascular flow. Air is a moderate right side hydrocele. The right epididymis appears normal. The left testis measures 3.8 x 2.9 x 2.7 cm. No focal lesions. Normal testicular vascular flow. The left epididymis exhibits a somewhat hypoechoic heterogeneous appearance. Inflammatory change (epididymitis) cannot be sonographically excluded. Minimal hydrocele on the left side. IMPRESSION: 1. Small bilateral hydroceles 2. Changes involving the left epididymis. Inflammatory change (epididymitis) cannot be excluded. Clinical correlation is needed.
--- NOTE | 2018-07-23 13:11 | Internal Medicine Prog Note ---
Internal Medicine Subjective - Subjective Service Date: 07/23/18 Patient is:: awake, non-verbal Patient Complaints of:: other Per staff patient has:: tolerating meds Internal Medicine Objective - Results Result Diagrams: 07/23/18 04:20 07/23/18 04:20 Recent Labs: Laboratory Last Values WBC 11.8 Th/cmm (4.8-10.8) H 07/23/18 04:20 RBC 2.89 Mil/cmm (3.80-5.80) L 07/23/18 04:20 Hgb 9.1 gm/dL (12-16) L 07/23/18 04:20 Hct 26.5 % (41.0-60) L 07/23/18 04:20 MCV 91.6 fl (80-99) 07/23/18 04:20 MCH 31.4 pg (27.0-31.0) H 07/23/18 04:20 MCHC Differential 34.3 pg (28.0-36.0) 07/23/18 04:20 RDW 12.7 % (11.5-20.0) 07/23/18 04:20 Plt Count 241 Th/cmm (150-400) 07/23/18 04:20 MPV 8.4 fl 07/23/18 04:20 Add Manual Diff YES 07/20/18 04:50 Neutrophils % 72.9 % (40.0-80.0) 07/23/18 04:20 Band Neutrophils % 3 % (0-10) 07/20/18 04:50 Lymphocytes % 11.9 % (20.0-50.0) L 07/23/18 04:20 Monocytes % 4.0 % (2.0-10.0) 07/23/18 04:20 Eosinophils % 10.9 % (0.0-5.0) H 07/23/18 04:20 Basophils % 0.3 % (0.0-2.0) 07/23/18 04:20 Neutrophils (Manual) Not Reportable 07/21/18 04:45 Lymphocytes 5 % (20-50) L 07/20/18 04:50 Monocytes 6 % (2-10) 07/20/18 04:50 Eosinophils 1 % (0-5) 07/19/18 08:48 Basophils 0 % (0-3) 07/19/18 08:48 Platelet Estimate ADEQUATE (NORMAL) 07/20/18 04:50 Platelet Morphology NORMAL (NORMAL) 07/18/18 15:00 RBC Morph Micro Appear NORMAL (NORMAL) 07/18/18 15:00 Sodium 138 mEq/L (136-145) 07/23/18 04:20 Potassium 3.8 mEq/L (3.5-5.1) 07/23/18 04:20 Chloride 111 mEq/L (98-107) H 07/23/18 04:20 Carbon Dioxide 20.5 mEq/L (21.0-31.0) L 07/23/18 04:20 Anion Gap 10.3 (7.0-16.0) 07/23/18 04:20 BUN 22 mg/dL (7-25) 07/23/18 04:20 Creatinine 0.6 mg/dL (0.7-1.3) L 07/23/18 04:20 Est GFR ( Amer) TNP 07/23/18 04:20 Est GFR (Non-Af Amer) TNP 07/23/18 04:20 BUN/Creatinine Ratio 36.7 07/23/18 04:20 Glucose 97 mg/dL (70-105) 07/23/18 04:20 POC Glucose 90 MG/DL (70 - 105) 07/23/18 11:46 Whole Bld Lactic Acid 1.79 mmol/L (0.60-1.99) 07/18/18 15:00 Calcium 8.3 mg/dL (8.6-10.3) L 07/23/18 04:20 Magnesium 2.2 mg/dL (1.9-2.7) 07/20/18 04:50 Total Bilirubin 0.4 mg/dL (0.3-1.0) 07/20/18 04:50 AST 26 U/L (13-39) 07/20/18 04:50 ALT 22 U/L (7-52) 07/20/18 04:50 Alkaline Phosphatase 174 U/L (34-104) H 07/20/18 04:50 B-Natriuretic Peptide 799.0 pg/mL (5.0-100.0) H 07/23/18 04:20 Total Protein 5.9 gm/dL (6.0-8.3) L 07/20/18 04:50 Albumin 2.4 gm/dL (4.2-5.5) L 07/20/18 04:50 Globulin 3.5 gm/dL 07/20/18 04:50 Albumin/Globulin Ratio 0.7 (1.0-1.8) L 07/20/18 04:50 Lipase 85 U/L (11-82) H 07/18/18 15:00 TSH 2.52 uIU/ml (0.34-5.60) 07/20/18 04:50 Urine Source [place] 07/18/18 15:15 Urine Color RED 07/18/18 15:15 Urine Clarity HAZY (CLEAR) 07/18/18 15:15 Urine pH 8.5 (4.6 - 8.0) 07/18/18 15:15 Ur Specific Bone Gap 1.010 (1.005-1.030) 07/18/18 15:15 Urine Protein >300 mg/dL (NEGATIVE) H 07/18/18 15:15 Urine Glucose (UA) NEGATIVE mg/dL (NEGATIVE) 07/18/18 15:15 Urine Ketones NEGATIVE mg/dL (NEGATIVE) 07/18/18 15:15 Urine Blood LARGE (NEGATIVE) H 07/18/18 15:15 Urine Nitrate POSITIVE (NEGATIVE) H 07/18/18 15:15 Urine Bilirubin SMALL (NEGATIVE) H 07/18/18 15:15 Urine Urobilinogen 0.2 E.U./dL (0.2 - 1.0) 07/18/18 15:15 Ur Leukocyte Esterase MODERATE (NEGATIVE) H 07/18/18 15:15 Urine RBC 50-100 /hpf (0-5) H 07/18/18 15:15 Urine WBC 50-100 /hpf (0-5) H 07/18/18 15:15 Ur Epithelial Cells NONE SEEN /lpf (FEW) 07/18/18 15:15 Urine Bacteria FEW /hpf (NONE SEEN) 07/18/18 15:15 Vancomycin Trough 11.7 ug/mL (5-10) H 07/22/18 07:00 - Physical Exam Vitals and I&O: Vital Signs Temp 98.9 F 07/23/18 10:20 Pulse 69 07/23/18 11:16 Resp 19 07/23/18 11:00 BP 121/53 07/23/18 11:00 Pulse Ox 100 07/23/18 11:16 Intake & Output 07/22/18 07/23/18 07/23/18 18:59 06:59 18:59 Intake Total 2600 2210 250 Output Total 3204 1250 Balance -604 960 250 Weight (lbs) 161 lb 161 lb Intake: Intake, IV Amount 300 1100 250 D5-0.45NS 1,000 ml @ 70 1000 mls/hr IV .[id number] [facility] Rx #:[id number] Piperacillin Sodium/ 50 100 Tazobact 2.25 gm In Sodium Chloride 0.9% 50 ml @ 100 mls/hr IV Q8HR [facility] Rx#:[id number] Vancomycin HCl 1 gm In 250 Sodium Chloride 0.9% 250 ml @ 165 mls/hr IV Q24HR@ 0900 [facility] Rx#:[id number] Vancomycin HCl 1.25 gm In 250 Sodium Chloride 0.9% 250 ml @ 165 mls/hr IV Q24H [facility] Rx#:[id number] Tube Feeding 1400 560 Other 900 550 Output: Urine 3200 1250 Stool 4 Other: Stool Characteristics Soft Soft Liquid Mucoid Brown Brown Weight Source Bedscale Bedscale Active Medications: Current Medications Acetaminophen (Tylenol 650mg/20.3ml Suspension) 650 mg GT Q4H PRN PRN Reason: Pain Or Fever above 101 Stop: 09/16/18 18:47 Acetaminophen/Hydrocodone Bitart ([place] 5mg/325mg) 1 tab GT Q8H PRN PRN Reason: MODERATE/SEVERE PAIN Stop: 09/16/18 18:45 Last Admin: 07/22/18 09:02 Dose: 1 tab Albuterol/Ipratropium (Duoneb Neb) 3 ml HHN Q6HRT [facility] Stop: 09/17/18 00:00 Last Admin: 07/23/18 07:44 Dose: 3 ml Artificial Tears (Artificial Tears Ophth Soln) 1 drop EACH EYE BID [facility] Stop: 09/17/18 16:59 Last Admin: 07/23/18 08:13 Dose: 1 drop Ascorbic Acid (Vitamin C) 500 mg GT DAILY [facility] Stop: 09/17/18 08:59 Last Admin: 07/23/18 08:12 Dose: 500 mg Chlorhexidine Gluconate (Peridex) 15 ml MM 08,1999 [facility] Stop: 09/19/18 19:59 Last Admin: 07/23/18 08:13 Dose: 15 ml Docusate Sodium (Colace) 100 mg GT DAILY [facility] Stop: 09/17/18 08:59 Last Admin: 07/23/18 08:12 Dose: 100 mg Ferrous Sulfate (Iron) 300 mg GT BID [facility] Stop: 09/17/18 08:59 Last Admin: 07/23/18 08:12 Dose: 300 mg Guaifenesin (Robitussin) 200 mg GT Q4HR PRN PRN Reason: Cough Stop: 09/16/18 18:45 Piperacillin Sod/Tazobactam (Sod 2.25 gm/ Sodium Chloride) 50 mls @ 100 mls/hr IV Q8HR [facility] Stop: 09/16/18 20:59 Last Infusion: 07/23/18 05:54 Dose: Infused Norepinephrine Bitartrate 4 mg (/ Dextrose) 254 mls @ 0 mls/hr IV TITR PRN; Protocol PRN Reason: BP MAINTENANCE (PER PROTOCOL) Stop: 09/16/18 22:19 Last Titration: 07/19/18 21:40 Dose: 0 mcg/min, 0 mls/hr Vancomycin HCl 1.25 gm/ Sodium (Chloride) 250 mls @ 165 mls/hr IV Q24H [facility] Stop: 09/21/18 08:59 Last Infusion: 07/23/18 11:00 Dose: Infused Dextrose/Sodium Chloride (D5-0.45ns) 1,000 mls @ 70 mls/hr IV .[id number] [facility] Stop: 09/20/18 12:29 Last Admin: 07/23/18 05:44 Dose: 70 mls/hr Insulin Aspart (Novolog) 0 units SUBQ Q12HR [facility]; Protocol Stop: 09/21/18 20:59 Lactobacillus Rhamnosus (Culturelle 15b) 1 each PO DAILY [facility] Stop: 09/18/18 08:59 Last Admin: 07/23/18 08:12 Dose: 1 each Levothyroxine Sodium (Synthroid) 0.025 mg GT QDAC [facility] Stop: 09/17/18 07:29 Last Admin: 07/23/18 07:38 Dose: 0.025 mg Lorazepam (Ativan) 0.5 mg GT Q6H PRN; Protocol PRN Reason: Anxiety Stop: 09/16/18 18:45 Last Admin: 07/19/18 16:30 Dose: 0.5 mg Midodrine (Proamatine) 5 mg GT Q8H [facility] Stop: 09/16/18 11:59 Last Admin: 07/23/18 05:20 Dose: 5 mg Miscellaneous (Vancomycin Iv Per Pharmacy) 1 ea PRN [facility] Stop: 09/16/18 18:59 Miscellaneous (Probiotic Screen) 1 ea PRN PRN PRN Reason: PROTOCOL Stop: 09/17/18 10:57 Morphine Sulfate (Morphine) 1 mg IVP Q4HR PRN PRN Reason: Pain (Moderate) Stop: 09/18/18 13:13 Last Admin: 07/20/18 14:35 Dose: 1 mg Multivitamins/Vitamin C (Theragran) 1 tab GT DAILY [facility] Stop: 09/17/18 08:59 Last Admin: 07/23/18 08:12 Dose: 1 tab Mupirocin (Bactroban Oint) 1 appl NS BID [facility] Stop: 07/26/18 17:01 Last Admin: 07/23/18 08:13 Dose: 1 appl Pantoprazole Sodium (Protonix) 40 mg GT QDAC [facility] Stop: 09/17/18 07:29 Last Admin: 07/23/18 08:12 Dose: 40 mg Paroxetine HCl (Paxil) 20 mg GT DAILY [facility]; Protocol Stop: 09/17/18 08:59 Last Admin: 07/23/18 08:12 Dose: 20 mg Pyridostigmine Rosalia (Mestinon) 60 mg GT Q12H [facility] Stop: 09/16/18 19:59 Last Admin: 07/23/18 08:13 Dose: 60 mg General: weak, alert HEENT: NC/AT, PERRLA Neck: Supple Lungs: ronchi Cardiovascular: RRR, Normal S1, Normal S2, without murmur Abdomen: soft, non-tender, non-distended, positive bowel sound Extremities: excoriation Neurological: alert, unable to follow command - Procedures Procedures: Procedures Procedure Code Date EGD PLACE GASTROSTOMY TUBE 66212 06/02/16 INSERTION OF ENDOTRACHEAL AIRWAY INTO TRACHEA, VIA OPENING [id number] 04/27/18 INSERTION OF FEEDING DEVICE INTO STOMACH, ENDO [id number] 06/02/16 RESPIRATORY VENTILATION, GREATER THAN 96 CONSECUTIVE HOURS [id number] 07/18/18 VENT MGMT INPAT INIT DAY 06/02/16 VENT MGMT INPAT SUBQ DAY 06/02/16 Internal Medicine Assmt/Plan - Assessment Assessment: sepsis Proteus Mirabilis ESBL grew in blood culture Acute UTI with proteus mirabilis MRSA nares hematuria-improved Scrotal edema Bilateral moderate hydronephrosis and renal cyst acute renal insufficiency VDRF myasthenia gravis acute on chronic respiratory failure dementia hx malignant melanoma hx prostate ca 2003 - Plan Plan: LTAC EVAL [facility] continue with zosyn and vanco continue with CBI monitor h/h closely follow up labs in am continue current plan of care Nutritional Asmnt/Malnutr-PDOC - Dietary Evaluation Malnutrition Findings (Please click <Entered> for more info): Nutritional Asmnt/Malnutrition Start: 07/19/18 15: 57 Text: Status: Complete Freq: Protocol: Document 07/19/18 15:57 LCHENG (Rec: 07/19/18 16:06 [email or web address] [id number]) Nutritional Asmnt/Malnutrition Patient General Information Nutritional Screening High Risk Diagnosis sepsis, hematuria, resp failure Pertinent Medical Hx/Surgical Hx HTN, DM, CHF, Asthma/COPD, dysphagia, anxiety, hypothyroidism, dry eye, depression, vent dependecy, oarticvalve stenosis, iron def anemia, PEG/Gtube, trach Subjective Information Pt seen lying in bed at time of visit on vent via trach, awake, nonverbal. Per RN, pt tolerated TF well. Current Diet Order/ Nutrition Support glucerna 1.2 70ml/hr x 20hr Pertinent Medications vit C, colace, iron, novolog, culturelle, synthroid, theragran, protonix, nacl 0.9% , nacl tab, piperacillin Pertinent Labs 07/19 K 3.1, BUN 84 (trending down), glucose 163, POC 135- 148 07/18 Na 132, Cl 94, BUN 120, Cr 1.9, glucose 153 Nutritional Hx/Data Height 5 ft 6 in Height (Calculated Centimeters) 167.6 Current Weight (lbs) 150 lb Weight (Calculated Kilograms) 68.0 Weight (Calculated Grams) [address]17.9 [place] Body Weight 142 Body Mass Index (BMI) 24.2 Weight Status Approriate GI Symptoms GI Symptoms None Last BM 07/19 Difficult in: None Skin Integrity/Comment: no skin problem noted per EMR, russell Felder Estimated Nutritional Goals BEE in Kcals: Using Current wt Calories/Kcals/Kg 25-30 Kcals Calculated 6680-6497 Protein: Using Current wt Protein g/k-1.2 monitor renal labs Protein Calculated 68-82 Fluid: ml 1700-2040ml (1m/kcal) Nutritional Problem 1. Problem Problem altered nutiriton related labs Etiology renal dysfunction and hx of DM Signs/Symptoms: BUN 84-120, glucose 163, POC 135-148 Malnutrition Alert Is there a minimum of two criteria No selected? Query Text:Check all the applicable criteria. A minimum of two criteria are recommended for diagnosis of either severe or non-severe malnutrition. Malnutrition Related to Morbid Obesity Malnutrition related to morbid obesity No Intervention/Recommendation Comments 1. Continue with current TF regimen Glucerna 1.2 70ml/hr x 20hr. It provides 1680kcal, 84g protein, 1127ml free water , meeting 100% of nutritional needs 2. Monitor TF rate, tolerance, wt, skin integrity and labs 3. F/U as high risk in 2-3 days, 07/21-07/22 Expected Outcomes/Goals Expected Outcomes/Goals 1. Pt to meet at least 75% of nutritional needs via nutrition support with tolerance 2. Wt stability, skin to remain intact, labs to approach WNL.
[2018-07-23] MEDS ORDERED: INSULIN ASPART, RECOMBINANT 100 UNITS/ML SUBQ SCH (21:00)
--- NOTE | 2018-07-30 22:58 | Discharge Summary ---
DATE OF DISCHARGE: 07/24/2018 DISCHARGE DIAGNOSES: 1. Sepsis Proteus mirabilis extended-spectrum beta-lactamases grew on blood culture. 2. Acute urinary tract infection with Proteus mirabilis. 3. Methicillin-resistant Staphylococcus aureus nares. 4. Hematuria. 5. Scrotal edema. 6. Bilateral moderate hydronephrosis and renal cyst. 7. Acute renal insufficiency. 8. Ventilator-dependent respiratory failure. 9. Myasthenia gravis, [id number] respiratory failure. 10. Dementia. 11. History of malignant melanoma. 12. History of prostate cancer in 2003. HISTORY OF PRESENT ILLNESS: This is an 82-year-old male who is well known to me from [facility] was admitted to the ICU unit due to elevated BUN and creatinine. The patient was also noted to have a 2-day history of hematuria associated with scrotal swelling for further management. The patient was admitted to the ICU. PHYSICAL EXAMINATION: GENERAL: Elderly male, on ventilator, appears chronically ill, no apparent distress. VITAL SIGNS: Stable. HEENT: Head normocephalic and atraumatic. NECK: Supple. No mass. LUNGS: Rhonchi bilaterally. CARDIOVASCULAR: Regular rate and rhythm. ABDOMEN: Soft and nontender. HOSPITAL COURSE: During the hospital stay, the patient was initially admitted to the ICU unit. The patient had a urine culture done, positive for Proteus mirabilis. The patient's blood culture also grew Proteus mirabilis ESBL. The patient was also noted with bilateral scrotal swelling. The patient had an ultrasound of the scrotum and it showed bilateral moderate hydronephrosis and renal cyst. Due to the need of IV antibiotics, the patient was transferred to [facility]. CONDITION UPON DISCHARGE: Fair. DISPOSITION: [facility]. JOB# [id number]
== END 2018-07-23 21:55 | DRG 870 ==
LOC: ER 14:50 → ICU 17:19
PROVIDERS: ADMIT Internal Medicine; ATTEND Internal Medicine
PROC: 5A1955Z Respiratory Ventilation, Greater than 96 Consecutive Hours (ICD-10-PCS; principal; 2018-07-18)
DX: A41.9 Sepsis, unspecified organism (principal); J96.20 Acute and chronic respiratory failure, unspecified whether with hypoxia or hypercapnia; N17.9 Acute kidney failure, unspecified; Z99.11 Dependence on respirator [ventilator] status; N13.6 Pyonephrosis; R31.9 Hematuria, unspecified; Z99.81 Dependence on supplemental oxygen; G70.00 Myasthenia gravis without (acute) exacerbation; F03.90 Unspecified dementia, unspecified severity, without behavioral disturbance, psychotic disturbance, mood disturbance, and anxiety; Z66 Do not resuscitate; I11.0 Hypertensive heart disease with heart failure; I50.9 Heart failure, unspecified; E11.9 Type 2 diabetes mellitus without complications; J44.9 Chronic obstructive pulmonary disease, unspecified; R13.10 Dysphagia, unspecified; F41.9 Anxiety disorder, unspecified; B96.4 Proteus (mirabilis) (morganii) as the cause of diseases classified elsewhere; N50.89 Other specified disorders of the male genital organs; N28.1 Cyst of kidney, acquired; E03.9 Hypothyroidism, unspecified; F32.9 Major depressive disorder, single episode, unspecified; Z93.1 Gastrostomy status; Z93.0 Tracheostomy status; Z85.46 Personal history of malignant neoplasm of prostate
CPT/HCPCS: 36415-UA; 71045-TC; 76770-TC; 76870-TC; 80048-TC; 80053-TC; 80202-TC; 81001-TC; 82948-90; 83605; 83690-TC; 83735-TC; 83880-TC; 84443-TC; 85007-TC; 85025-TC; 87086-90; 90779; 94002; 94003; 94640; J0696; J1644; J1815; J2270; J2543; J3370; J7613; P9046; X6452; Z7610